=== PATIENT | female | born 1935 | race Caucasian/White ===

== ENCOUNTER 2021-11-10 16:42 | Emergency (ER) | payer MEDICARE, BC, SELFPAY ==
[2021-11-10 16:51] VITALS: BP 171/66; PULSE 82; RESP 18; TEMP 36.6; O2SAT 97; BMI 22.1
[2021-11-10 17:16] LABS: Appearance Urine Clear (Clear); Bilirubin Urine Negative (Negative); Blood Urine 1+ (Negative); Color Urine Yellow (Yellow); Glucose Urine Trace (Negative); Ketones Urine Negative (Negative); Leukocyte Esterase Urine Negative (Negative); Nitrite Urine Positive (Negative); Protein Urine Negative (Negative); Specific Gravity Urine 1.015 (1.000-1.030); Urobilinogen Urine 0.2 (0.2-1.0); pH Urine 7.5 (5.0-8.5)
--- NOTE | 2021-11-10 17:38 | ED_ITS ---
HPI - Female Genitourinary General Chief complaint: Urogenital Problems, Female Stated complaint: URINARY INFECTION,BURNING Time Seen by Provider: 11/10/21 17:06 History of Present Illness HPI Narrative: Patient is a 86-year-old woman with history of frequent UTIs presents with urinary frequency and burning. His no flank pain no abdominal pain no fevers. She has numerous urine cultures in our system all of which are fairly unremarkable. Patient states he has had symptoms for 2 days in that her symptoms are quite severe. She has notice no gross hematuria. Related Data Home Medications Medication Instructions Recorded Confirmed amlodipine 2.5 mg tablet mg 11/10/21 gabapentin 300 mg capsule mg 11/10/21 ketotifen fumarate 0.025 % (0.035 drp OPHTHALMIC (EYE) 11/10/21 %) eye drops (Zaditor) levothyroxine 50 mcg tablet mcg 11/10/21 lisinopril 40 mg tablet mg 11/10/21 lorazepam 1 mg tablet mg 11/10/21 omeprazole 40 mg capsule,delayed mg 11/10/21 release sertraline 25 mg tablet mg 11/10/21 tamsulosin 0.4 mg capsule mg PO 11/10/21 temazepam 15 mg capsule mg 11/10/21 Allergies Allergy/AdvReac Type Severity Reaction Status Date / Time No Known Drug Allergies Allergy Verified 11/10/21 16:59 Review of Systems Status of ROS: Reports: 10 or more systems reviewed and unremarkable except as noted in History and below [facility] Medical History Hernia Hypertension Rectocele UTI (urinary tract infection) Surgical History H/O: hysterectomy Social History Smoking Status: Never smoker How often do you have a drink containing alcohol: never AUDIT-C Alcohol total score: 0 Non-prescribed substance use: denies use Exam Narrative: Exam Narrative: EXAM GENERAL: Patient appears comfortable and well. EYES: No scleral icterus. LYMPH: No supraclavicular or cervical lymphadenopathy. SKIN: Visible skin seen during exam normal or with benign process only. EXT: No dependent lower extremity pedal edema. HEART: Regular rate and rhythm with no murmurs, rubs, or gallops. LUNGS: Clear to auscultation bilaterally with no crackles or wheezes. ABD: Soft, non tender, non distended. PSYCH: Good eye contact, speech is not pressured. Const: Vital Signs, click to edit/add: Vital Signs - 24 hr 11/10/21 16:51 Temperature 97.8 F Pulse Rate [Right Radial] 82 Respiratory Rate 18 Blood Pressure [Ri ght Upper Arm] 171/66 H Pulse Oximetry 97 Course Course Hospital Course: Patient seen examined. Will place her on Bactrim Double Strength for the next 5 days. She will drink plenty of fluids get plenty of rest. She shows no signs of kidney stone or significant pyelonephritis. Vital Signs Vital signs: Initial Vital Signs Temperature 97.8 F 11/10/21 16:51 Temperature Source Temporal Artery Scan 11/10/21 16:51 Pulse Rate 82 11/10/21 16:51 Pulse Rhythm 11/10/21 16:51 Pulse Strength 0+ Absent 11/10/21 16:51 Respiratory Rate 18 11/10/21 16:51 Blood Pressure 171/66 H 11/10/21 16:51 Blood Pressure Mean 101 11/10/21 16:51 Blood Pressure Position Sitting 11/10/21 16:51 Pulse Oximetry 97 11/10/21 16:51 Oxygen Delivery Method 11/10/21 16:51 Vital Signs Temperature 97.8 F 11/10/21 16:51 Pulse Rate 82 11/10/21 16:51 Respiratory Rate 18 11/10/21 16:51 Blood Pressure 171/66 H 11/10/21 16:51 Pulse Oximetry 97 11/10/21 16:51 Temperature 97.8 F 11/10/21 16:51 Pulse Rate 82 11/10/21 16:51 Respiratory Rate 18 11/10/21 16:51 Blood Pressure 171/66 H 11/10/21 16:51 Pulse Oximetry 97 11/10/21 16:51 MDM - Female Genitourinary Lab Data Labs: Lab Results 11/10/21 Range/Units 17:02 Urine Color Yellow (Yellow) Urine Appearance Clear (Clear) Urine pH 7.5 (5.0-8.5) Ur Specific [place] 1.015 (1.000-1.030) Urine Protein Negative (Negative) Urine Glucose (UA) Trace A (Negative) Urine Ketones Negative (Negative) Urine Blood 1+ A (Negative) Urine Nitrite Positive A (Negative) Urine Bilirubin Negative (Negative) Urine Urobilinogen 0.2 (0.2-1.0) Ur Leukocyte Esterase Negative (Negative) Discharge Plan Discharge Clinical Impression: Urinary tract infection Patient Disposition: Home, Self-Care Condition: Stable Instructions: Acute Urinary Retention in Women (ED) Additional Instructions: Bactrim as directed Activity Level: No Restrictions Discharge Diet: Regular Prescriptions: No Action ketotifen fumarate [Zaditor] 0.025 % (0.035 %) drops OPHTHALMIC (EYE) 0RF Label Comments: USE 1 DROP IN AFFECTED EYE/EYES NEEDED TWICE DAILY. amlodipine 2.5 mg tablet 0RF Label Comments: TAKE ONE TABLET BY MOUTH ONCE DAILY omeprazole 40 mg capsule,delayed release(DR/EC) 0RF Label Comments: TAKE 1 CAPSULE BY MOUTH EVERY DAY BEFORE A MEAL. DO NOT CRUSH OR CHEW temazepam 15 mg capsule 0RF Label Comments: TAKE 1 CAPSULE (15 MG) BY MOUTH AT BEDTIME IF NEEDED FOR SLEEP. DO NOT TAKE LORAZEPAM WITHIN 6 HOURS ON FRONT OR BACK END OF THIS MED. tamsulosin 0.4 mg capsule PO 0RF Label Comments: TAKE 1 CAPSULE (0.4 MG) BY MOUTH ONCE DAILY AFTER A MEAL. levothyroxine 50 mcg tablet 0RF Label Comments: TAKE ONE TABLET BY MOUTH BEFORE BREAKFAST gabapentin 300 mg capsule 0RF Label Comments: TAKE ONE CAPSULE BY MOUTH EVERY MORNING THEN 2 CAPSULES AT AT NOON AND 3 CAPSULES AT BEDTIME sertraline 25 mg tablet 0RF Label Comments: TAKE 1 TABLET (25 MG) BY MOUTH EVERY MORNING. lorazepam 1 mg tablet 0RF Label Comments: TAKE 1 TABLET (1 MG) BY MOUTH 2 TIMES DAILY. lisinopril 40 mg tablet 0RF Label Comments: TAKE 1 TABLET (40 MG) BY MOUTH ONCE DAILY. Follow Up/Referrals: Daisy Carpenter DO [Primary Care Provider] - Stand Alone Forms: [employer] Info Instructions
[2021-11-10 17:41] LABS: Bacteria Urine Few; Squamous Epithelial Cell Urine Few (None-Few)
--- NOTE | 2021-11-10 18:31 | PC.NURSE ---
patient was ordered a sulfa antibiotic reviewed the historical information and noticed multiple allergies for patient and entered all in the allergy section. Had Dr. Bernal cancel the septra DS and ordered Keflex for patient to take at home and retrieving out of the [employer] meds machine. Patient is going to take the new prescription and not going to take the old Keflex that is on 11/14/21
== END 2021-11-10 18:05 | disposition home or self-care (01) ==
LOC: ED 17:42
PROVIDERS: Emergency Provider Internal Medicine; PCP Family Medicine
DX: N39.0 Urinary tract infection, site not specified (principal)
CPT/HCPCS: 81003; 81015; 87086; 99283; 99284

== ENCOUNTER 2021-11-13 16:14 | Emergency (ER) | payer MEDICARE, BC, SELFPAY ==
[2021-11-13 17:01] VITALS: BP 171/79; PULSE 74; RESP 18; TEMP 36.2; O2SAT 95
--- NOTE | 2021-11-13 17:40 | ED.NURSE ---
Fluids infused. FSG rechecked and 32. notified and 50% Dextrose 25g administered via left AC IV.
[2021-11-13 18:35] LABS: Appearance Urine Clear (Clear); Bilirubin Urine Negative (Negative); Blood Urine 1+ (Negative); Color Urine Yellow (Yellow); Glucose Urine Trace (Negative); Ketones Urine Negative (Negative); Leukocyte Esterase Urine Negative (Negative); Nitrite Urine Positive (Negative); Protein Urine Negative (Negative); Urobilinogen Urine 0.2 (0.2-1.0)
[2021-11-13 19:00] LABS: Squamous Epithelial Cell Urine Few (None-Few); WBC Urine 0-2 (0-5)
--- NOTE | 2021-11-13 19:24 | CRLHL7_ITS ---
For Patients: As a result of the Cures Act, medical imaging exams and procedure reports are released immediately into your electronic medical record. You may view this report before your referring provider. If you have questions, please contact your health care provider. INDICATION: Constipation TECHNIQUE: Abdomen/Pelvis radiograph 1 view COMPARISON: None FINDINGS: Bowel: The bowel gas pattern is normal without evidence of bowel obstruction. A normal amount of colonic stool is present. Soft tissue: No evidence of pneumoperitoneum present. No suspicious calcifications noted. Bone: Moderate dextroscoliosis is noted with associated facet arthritis and degenerative disc disease. IMPRESSION: 1. Unremarkable appearance of the visualized abdomen. Dictated by Jose De Jesus Wallace MD @ 11/13/2021 7:50:45 PM Dictated by: Jose De Jesus Wallace MD @ 11/13/2021 19:50:59 (Electronically Signed)
--- NOTE | 2021-11-13 20:45 | ED.FEMALEGU ---
HPI - Female Genitourinary General Chief complaint: Urogenital Problems, Female Stated complaint: BURNING & PAINFUL URINATION Time Seen by Provider: 11/13/21 17:21 Source: patient, RN notes reviewed and old records reviewed Mode of arrival: ambulatory History of Present Illness HPI Narrative: 86-year-old woman presenting to the emergency department complaining of vaginal area burning she says all the time though admittedly was more earlier. Seems to be going to more around November 08, 5 days ago. Was worsening but admittedly now okay. She feels also bloated thinking she might be constipated. Three days ago it is small bowel movement last normal bowel movement was maybe 4 days ago. She took some MiraLax and backed off due to looser stools last night took a full cap in feels like this has been minimal effect since. She does have a history of rectocele and has had extensive pelvic area surgery. She was encouraged to continue in her therapy. She says it hurts. She is worried that this is about to fall out again like before with her seem like there is a head of the baby there she says. She needs to keep walking to keep from going crazy but it sounds like she is worried that this is the make the problem worse. She is is is been about a year since she had a urinary tract infection has been applying Vaseline to the labial area it sounds like, nightly. This presumably has been helpful. She has a history of complications for repair this rectocele again very worried that it is falling out. Seen this last week in clinic with this burning and presumably had evidence of urinary tract infection on urinalysis and is taking antibiotics as well as Pyridium. She called in with continued burning is encouraged to continue with the Pyridium. This burning though is not with urination necessarily. Does also have chronic right lower abdominal pain since surgeries, she thinks this is related to mesh. 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 My review of records shows that has been seen for dysuria and cystitis and urinary retention on number of occasions in this emergency department. Related Data Home Medications Medication Instructions Recorded Confirmed amlodipine 2.5 mg tablet mg 11/10/21 gabapentin 300 mg capsule mg 11/10/21 ketotifen fumarate 0.025 % (0.035 drp OPHTHALMIC (EYE) 11/10/21 %) eye drops (Zaditor) levothyroxine 50 mcg tablet mcg 11/10/21 lisinopril 40 mg tablet mg 11/10/21 lorazepam 1 mg tablet mg 11/10/21 omeprazole 40 mg capsule,delayed mg 11/10/21 release sertraline 25 mg tablet mg 11/10/21 tamsulosin 0.4 mg capsule mg PO 11/10/21 temazepam 15 mg capsule mg 11/10/21 Allergies Allergy/AdvReac Type Severity Reaction Status Date / Time amlodipine Allergy Unknown Verified 11/10/21 18:19 atorvastatin Allergy Unknown Verified 11/10/21 18:19 atropine Allergy Unknown Verified 11/10/21 18:19 ciprofloxacin Allergy Unknown Verified 11/10/21 18:19 cyclobenzaprine Allergy Unknown Verified 11/10/21 18:19 doxycycline Allergy Unknown Verified 11/10/21 18:19 hydrochlorothiazide Allergy Unknown Verified 11/10/21 18:19 ibuprofen [From Motrin] Allergy Unknown Verified 11/10/21 18:20 labetalol Allergy Unknown Verified 11/10/21 18:20 phenol Allergy Unknown Verified 11/10/21 18:20 Sulfa (Sulfonamide Allergy Unknown Verified 11/10/21 18:20 Antibiotics) trazodone Allergy Unknown Verified 11/10/21 18:19 glycerine Allergy Unknown Uncoded 11/10/21 18:20 high cosamin Allergy Unknown Uncoded 11/10/21 18:20 Review of Systems Status of ROS: Reports: 6 or more systems reviewed and unremarkable except as noted in History and below [facility] Medical History Hernia Hypertension Rectocele UTI (urinary tract infection) Surgical History H/O: hysterectomy Social History Smoking Status: Never smoker How often do you have a drink containing alcohol: never How often do you have six or more drinks on one occasion: Never AUDIT-C Alcohol total score: 0 Non-prescribed substance use: denies use Exam Narrative: Exam Narrative: pleasant. mildly anxious. very conversant. nad. cn 2 - 12 intact breathing easily. lungs clear. cv rrr moving all extremities without difficulty. no edema. well-perfused. abdomen protuberant. soft. no mass. genearlly full. rather tender in the RLQ which she says is chronically that way since surgeries; blames it on the mesh/surgeries. exam assisted by nursing -- sore to speculum placement. no unusual discharge. small varicosites?/scarring? intravaginally at distal speculum. no mass or rectocele or otherwise appreciated. Const: Vital Signs, click to edit/add: Vital Signs - 24 hr 11/13/21 17:01 Temperature 97.2 F L Pulse Rate [Left P ulse Oximeter] 74 Respiratory Rate 18 Blood Pressure [Le ft Upper Arm] 171/79 H Pulse Oximetry 95 Documenting provider has reviewed patient's vital signs: yes Course Course Hospital Course: ua obtained. nitrite pos as prior. otherwise unremarkable. abd xray reviewed by me with normal colonic stool. scoliosis. osteoarthritic changes. I did do a post-void bladder scan; possibly an hour post-void -- retention somewhere between 40 and 230. Bladder scanner notoriously inaccurate. Vital Signs Vital signs: Initial Vital Signs Temperature 97.2 F L 11/13/21 17:01 Temperature Source Temporal Artery Scan 11/13/21 17:01 Pulse Rate 74 11/13/21 17:01 Respiratory Rate 18 11/13/21 17:01 Blood Pressure 171/79 H 11/13/21 17:01 Blood Pressure Mean 109 11/13/21 17:01 Blood Pressure Position Sitting 11/13/21 17:01 Pulse Oximetry 95 11/13/21 17:01 Oxygen Delivery Method 11/13/21 17:01 Vital Signs Temperature 97.2 F L 11/13/21 17:01 Pulse Rate 74 11/13/21 17:01 Respiratory Rate 18 11/13/21 17:01 Blood Pressure 171/79 H 11/13/21 17:01 Pulse Oximetry 95 11/13/21 17:01 Temperature 97.2 F L 11/13/21 17:01 Pulse Rate 74 11/13/21 17:01 Respiratory Rate 18 11/13/21 17:01 Blood Pressure 171/79 H 11/13/21 17:01 Pulse Oximetry 95 11/13/21 17:01 MDM - Female Genitourinary MDM Narrative Medical decision making narrative: reassured that there is no imminent prolapse. that may participate normally in activities. potentially complicated pelvic pain/burning. i am not convinced it has anything to do with infection. possible aseptic or interstitial cystitis? hx though complicated by surgeries and some degree of urinary retention and constipation. symptoms wax and wane. Medical Records Attestation: I reviewed the patient's medical records. Lab Data Attestation: I reviewed the patient's lab results. Labs: Lab Results 11/13/21 Range/Units 18:23 Urine Color Yellow (Yellow) Urine Appearance Clear (Clear) Urine pH 7.0 (5.0-8.5) Ur Specific Melissa 1.010 (1.000-1.030) Urine Protein Negative (Negative) Urine Glucose (UA) Trace A (Negative) Urine Ketones Negative (Negative) Urine Blood 1+ A (Negative) Urine Nitrite Positive A (Negative) Urine Bilirubin Negative (Negative) Urine Urobilinogen 0.2 (0.2-1.0) Ur Leukocyte Esterase Negative (Negative) Urine RBC 2-5 A (0-2) Urine WBC 0-2 (0-5) Ur Squamous Epith Cells Few (None-Few) Urine Bacteria None (None) Discharge Plan Discharge Clinical Impression: Vaginal pain, Urinary retention, Female pelvic pain Patient Disposition: Home, Self-Care Condition: Stable Additional Instructions: Please schedule follow-up with her primary care provider to discuss all of this further. It may be that treating peripheral/foot neuropathy might also help with what you're complaining of today. I do not see evidence of prolapsing rectocele today. I wonder though if retaining a little bit of urine more than usual might be contributing to your discomfort. Do get on that regimen for bowel regularity. Did not see major evidence though of constipation x-ray today. A urine culture will be pending here. I see no reason you can't continue with your usual level of activity. Prescriptions: No Action ketotifen fumarate [Zaditor] 0.025 % (0.035 %) drops OPHTHALMIC (EYE) 0RF Label Comments: USE 1 DROP IN AFFECTED EYE/EYES NEEDED TWICE DAILY. amlodipine 2.5 mg tablet 0RF Label Comments: TAKE ONE TABLET BY MOUTH ONCE DAILY omeprazole 40 mg capsule,delayed release(DR/EC) 0RF Label Comments: TAKE 1 CAPSULE BY MOUTH EVERY DAY BEFORE A MEAL. DO NOT CRUSH OR CHEW temazepam 15 mg capsule 0RF Label Comments: TAKE 1 CAPSULE (15 MG) BY MOUTH AT BEDTIME IF NEEDED FOR SLEEP. DO NOT TAKE LORAZEPAM WITHIN 6 HOURS ON FRONT OR BACK END OF THIS MED. tamsulosin 0.4 mg capsule PO 0RF Label Comments: TAKE 1 CAPSULE (0.4 MG) BY MOUTH ONCE DAILY AFTER A MEAL. levothyroxine 50 mcg tablet 0RF Label Comments: TAKE ONE TABLET BY MOUTH BEFORE BREAKFAST gabapentin 300 mg capsule 0RF Label Comments: TAKE ONE CAPSULE BY MOUTH EVERY MORNING THEN 2 CAPSULES AT AT NOON AND 3 CAPSULES AT BEDTIME sertraline 25 mg tablet 0RF Label Comments: TAKE 1 TABLET (25 MG) BY MOUTH EVERY MORNING. lorazepam 1 mg tablet 0RF Label Comments: TAKE 1 TABLET (1 MG) BY MOUTH 2 TIMES DAILY. lisinopril 40 mg tablet 0RF Label Comments: TAKE 1 TABLET (40 MG) BY MOUTH ONCE DAILY. Follow Up/Referrals: Daisy Carpenter DO [Primary Care Provider] - Stand Alone Forms: [facility] Info Instructions
== END 2021-11-13 20:00 | disposition home or self-care (01) ==
PROVIDERS: Emergency Provider Family Medicine; PCP Family Medicine
DX: R33.9 Retention of urine, unspecified (principal); R10.2 Pelvic and perineal pain
CPT/HCPCS: 74018; 81003; 81015; 99283; 99284

== ENCOUNTER 2022-03-09 13:17 | Emergency (ER) | payer MEDICARE, BC, SELFPAY ==
[2022-03-09 13:31] VITALS: BP 166/72; PULSE 57; RESP 18; TEMP 36.4; O2SAT 98; BMI 23.0
[2022-03-09 14:41] LABS: Appearance Urine Clear (Clear); Bilirubin Urine Negative (Negative); Blood Urine 1+ (Negative); Color Urine Yellow (Yellow); Glucose Urine Negative (Negative); Ketones Urine Negative (Negative); Leukocyte Esterase Urine 1+ (Negative); Nitrite Urine Negative (Negative); Protein Urine Negative (Negative); Specific Gravity Urine 1.015 (1.000-1.030); Urobilinogen Urine 0.2 (0.2-1.0); pH Urine 7.5 (5.0-8.5)
--- NOTE | 2022-03-09 15:10 | ED.GENADULT ---
HPI - General Adult General Chief complaint: Urogenital Problems, Female Stated complaint: UTI Time Seen by Provider: 03/09/22 15:05 Source: patient Mode of arrival: ambulatory Limitations: no limitations History of Present Illness HPI narrative: 86-year-old female coming in today with concerns about UTI. States she has been having increased urgency and frequency as well as mild dysuria for about a day and a half. Denies any fevers or chills. No nausea or vomiting. No flank pain. No blood in her urine. Related Data Home Medications Medication Instructions Recorded Confirmed amlodipine 2.5 mg tablet mg 11/10/21 gabapentin 300 mg capsule mg 11/10/21 ketotifen fumarate 0.025 % (0.035 drp ophthalmic (eye) 11/10/21 %) eye drops (Zaditor) levothyroxine 50 mcg tablet mcg 11/10/21 lisinopril 40 mg tablet mg 11/10/21 lorazepam 1 mg tablet mg 11/10/21 omeprazole 40 mg capsule,delayed mg 11/10/21 release sertraline 25 mg tablet mg 11/10/21 tamsulosin 0.4 mg capsule mg PO 11/10/21 temazepam 15 mg capsule mg 11/10/21 Allergies Allergy/AdvReac Type Severity Reaction Status Date / Time amlodipine Allergy Unknown Verified 11/10/21 18:19 atorvastatin Allergy Unknown Verified 11/10/21 18:19 atropine Allergy Unknown Verified 11/10/21 18:19 ciprofloxacin Allergy Unknown Verified 11/10/21 18:19 cyclobenzaprine Allergy Unknown Verified 11/10/21 18:19 doxycycline Allergy Unknown Verified 11/10/21 18:19 hydrochlorothiazide Allergy Unknown Verified 11/10/21 18:19 ibuprofen [From Motrin] Allergy Unknown Verified 11/10/21 18:20 labetalol Allergy Unknown Verified 11/10/21 18:20 phenol Allergy Unknown Verified 11/10/21 18:20 Sulfa (Sulfonamide Allergy Unknown Verified 11/10/21 18:20 Antibiotics) trazodone Allergy Unknown Verified 11/10/21 18:19 glycerine Allergy Unknown Uncoded 11/10/21 18:20 high cosamin Allergy Unknown Uncoded 11/10/21 18:20 Review of Systems Status of ROS: Reports: 10 or more systems reviewed and unremarkable except as noted in History and below [facility] Medical History Hernia Hypertension Rectocele UTI (urinary tract infection) Surgical History H/O: hysterectomy Social History Smoking Status: Never smoker How often do you have a drink containing alcohol: never How often do you have six or more drinks on one occasion: Never AUDIT-C Alcohol total score: 0 Non-prescribed substance use: denies use Exam Narrative: Exam Narrative: Well-nourished well-developed patient in no acute distress. Alert and oriented. Answers questions appropriately. Mood and affect are appropriate. Thoughts are goal oriented and rational. No tangential or magical thinking noted. Patient speaks in full sentences without needing to catch their breath. HEENT: Normocephalic atraumatic. Pupils are equally round reactive to light. Extraocular muscles are intact. Conjunctivae are moist without any icterus noted. Abdomen: Soft and nontender nondistended with normal bowel sounds. No CVA tenderness. Patient walks with a walker. Const: Vital Signs, click to edit/add: Vital Signs - 24 hr 03/09/22 13:31 Temperature 97.5 F L Pulse Rate [Pulse Oximeter] 57 L Respiratory Rate 18 Blood Pressure [Ri ght Upper Arm] 166/72 H Pulse Oximetry 98 Oxygen Delivery Me thod Room Air Course Course Hospital Course: Urinalysis grossly positive for signs of infection. Vital Signs Vital signs: Initial Vital Signs Temperature 97.5 F L 03/09/22 13:31 Temperature Source Temporal Artery Scan 03/09/22 13:31 Pulse Rate 57 L 03/09/22 13:31 Pulse Rhythm 03/09/22 13:31 Respiratory Rate 18 03/09/22 13:31 Blood Pressure 166/72 H 03/09/22 13:31 Blood Pressure Mean 103 03/09/22 13:31 Blood Pressure Position Sitting 03/09/22 13:31 Pulse Oximetry 98 03/09/22 13:31 Oxygen Delivery Method 03/09/22 13:31 Vital Signs Temperature 97.5 F L 03/09/22 13:31 Pulse Rate 57 L 03/09/22 13:31 Respiratory Rate 18 03/09/22 13:31 Blood Pressure 166/72 H 03/09/22 13:31 Pulse Oximetry 98 03/09/22 13:31 Oxygen Delivery Method 03/09/22 13:31 Temperature 97.5 F L 03/09/22 13:31 Pulse Rate 57 L 03/09/22 13:31 Respiratory Rate 18 03/09/22 13:31 Blood Pressure 166/72 H 03/09/22 13:31 Pulse Oximetry 98 03/09/22 13:31 Oxygen Delivery Method 03/09/22 13:31 Medical Decision Making MDM Narrative Medical decision making narrative: 86-year-old female with a UTI. Will treat with Keflex for 5 days. Recommend follow-up with primary care provider in a week or so. Return to the ED if symptoms are getting worse instead of better. Lab Data Lab results reviewed: Yes I reviewed the patient's lab results Labs: Lab Results 03/09/22 Range/Units 14:15 Urine Color Yellow (Yellow) Urine Appearance Clear (Clear) Urine pH 7.5 (5.0-8.5) Ur Specific [place] 1.015 (1.000-1.030) Urine Protein Negative (Negative) Urine Glucose (UA) Negative (Negative) Urine Ketones Negative (Negative) Urine Blood 1+ A (Negative) Urine Nitrite Negative (Negative) Urine Bilirubin Negative (Negative) Urine Urobilinogen 0.2 (0.2-1.0) Ur Leukocyte Esterase 1+ A (Negative) Discharge Plan Discharge Clinical Impression: Urinary tract infection Patient Disposition: Home, Self-Care Condition: Stable Additional Instructions: Take all antibiotics as prescribed. You should take them 3 times a day for 5 days. Return to the ER if her symptoms are getting worse instead of better. Follow-up with your primary care provider in a week. Prescription sent to [facility] Prescriptions: No Action ketotifen fumarate [Zaditor] 0.025 % (0.035 %) drops OPHTHALMIC (EYE) Label Comments: USE 1 DROP IN AFFECTED EYE/EYES NEEDED TWICE DAILY. amlodipine 2.5 mg tablet Label Comments: TAKE ONE TABLET BY MOUTH ONCE DAILY omeprazole 40 mg capsule,delayed release(DR/EC) Label Comments: TAKE 1 CAPSULE BY MOUTH EVERY DAY BEFORE A MEAL. DO NOT CRUSH OR CHEW temazepam 15 mg capsule Label Comments: TAKE 1 CAPSULE (15 MG) BY MOUTH AT BEDTIME IF NEEDED FOR SLEEP. DO NOT TAKE LORAZEPAM WITHIN 6 HOURS ON FRONT OR BACK END OF THIS MED. tamsulosin 0.4 mg capsule PO Label Comments: TAKE 1 CAPSULE (0.4 MG) BY MOUTH ONCE DAILY AFTER A MEAL. levothyroxine 50 mcg tablet Label Comments: TAKE ONE TABLET BY MOUTH BEFORE BREAKFAST gabapentin 300 mg capsule Label Comments: TAKE ONE CAPSULE BY MOUTH EVERY MORNING THEN 2 CAPSULES AT AT NOON AND 3 CAPSULES AT BEDTIME sertraline 25 mg tablet Label Comments: TAKE 1 TABLET (25 MG) BY MOUTH EVERY MORNING. lorazepam 1 mg tablet Label Comments: TAKE 1 TABLET (1 MG) BY MOUTH 2 TIMES DAILY. lisinopril 40 mg tablet Label Comments: TAKE 1 TABLET (40 MG) BY MOUTH ONCE DAILY. Follow Up/Referrals: Daisy Carpenter DO [Primary Care Provider] - Stand Alone Forms: [employer] Info Instructions
[2022-03-09 15:25] LABS: RBC Urine 0-2 (0-2); Squamous Epithelial Cell Urine Few (None-Few); WBC Urine 0-2 (0-5)
== END 2022-03-09 15:35 | disposition home or self-care (01) ==
PROVIDERS: Emergency Provider Family Medicine; PCP Family Medicine
DX: N39.0 Urinary tract infection, site not specified (principal); I10 Essential (primary) hypertension; Z79.899 Other long term (current) drug therapy; Z87.440 Personal history of urinary (tract) infections
CPT/HCPCS: 81001; 87086; 99283

== ENCOUNTER 2022-03-23 03:11 | Outpatient (CLI) | payer MEDICARE, BC, SELFPAY ==
--- OUTSIDE RECORDS SUMMARY | 2022-04-13 07:09 | XMS_ITS ---
:1935 Author Care Team Providers Name Role Phone Laureano Miner Primary Care Provider Unavailable Allergies Code Code System Name Reaction Severity Status Onset Sulfamethoxazole-trimetho Hives ? Acti ve 10/23/2015 prim 7454 RxNorm Nitrofurantoin Diarrhea ? Active 07/15 2231 RxNorm Cephalexin Itching ? Active ? [id number] RxNorm Cipro ? ? Active ? 52381 RxNorm Cyclobenzaprine Dizziness ? Active ? Itching ? Active ? 3640 RxNorm Doxycycline ? ? Active ? 5487 RxNorm Hydrochlorothiazide ? ? Active ? 905699 RxNorm Hyoscyamine ? ? Active ? 6185 RxNorm Labetalol ? ? Active ? 017678 RxNorm Lipitor ? ? Active ? 77618 RxNorm Mirtazapine ? ? Active ? 84234 RxNorm Tramadol ? ? Active ? 84973 RxNorm Trazodone ? ? Active ? Medications [...]
--- OUTSIDE RECORDS SUMMARY | 2022-04-13 07:09 | XMS_ITS | Clinical Summary ---
:1935 Author Organization [facility] Address [address] [place] [address] Care Team Providers Name Role Phone Elsewhere, Pcp Primary Care Provider Unavailable Source Comments Patient records contain information from all sites at [facility]. For routine questions regarding patient records, call [phone] during business hours, M-F 8:00 AM - 5:00 PM Central Time. Record requests for emergency care only can be directed to [phone] at any time.[facility] Allergies Active Allergy Reactions Severity Noted Date [...] 11/20/2021 11/20/2020, 09/20/2018, 03/02/2018, Additional history exists DTaP,Tdap,and Td Vaccines (4 - Td 05/04/2022 05/04/2012, , or Tdap) 10/26/2005, Additional history exists Pneumococcal vaccine (65+ years) Completed 05/22/2015, 05/2007, 10/26/2005 Zoster Vaccines Completed 02/28/2019, 12/27/2018, 02/28/2009 Influenza Vaccine Completed 02/25/2022, 02/23/2021, 02/14/2020, Additional history exists COVID-19 Vaccine Completed 03/17/2022, 10/08/2021, 03/30/2021, Additional history exists Insurance Payer Benefit Plan Subscriber ID Effective Phone Address Typ e / Group Dates MEDICARE MEDICARE A [id number] 2002-Pres [address] [place] [address] BLUE CROSS BCBS [place] [id number] 2016-Pres [phone] [address] Cost Share BLUE SHIELD BLUE COST ent [phone] [place] [address] Advance Directives For more information, please contact: [phone] Documents on File Type Date Recorded Patient Visual Basic Programmer Explanati on Advance Directives 03/25/2016 12:00 AM Legacy do cument. See document viewer. Advance Directives 11/24/2008 12:00 AM Legacy doc ument. See document viewer. Advance Directives 11/24/2008 12:00 AM Legacy doc ument. See document viewer. Care Teams Communications Equipment Supervisor Relationship Specialty Start Date End Date Elsewhere, Pcp PCP - General Family Medicine 11/20/20
--- OUTSIDE RECORDS SUMMARY | 2022-04-13 07:10 | XMS_ITS | Encounter Summary ---
:1935 Author Organization [facility] Address [address] [place] [address] Care Team Providers Name Role Phone Elsewhere, [...] if needed. CDM Reports - EYEGEN Id: [id number] Status: Fnl documented in this encounter Plan of Treatment Not on filedocumented as of this encounter Visit Diagnoses Not on filedocumented in this encounter Care Teams State Comptroller Relationship Specialty Start Date End Date Elsewhere, Pcp PCP - General Family Medicine 11/20/20 documented as of this encounter
--- OUTSIDE RECORDS SUMMARY | 2022-04-13 07:10 | XMS_ITS | Clinical Summary ---
:1935 Author Organization [facility] [place] [address] Care Team Providers Name Role Phone Daisy [...] Medications Medication Sig Dispensed Refills Start End Status Date Date aspirin 81 mg tablet Take 1 tablet 0 10/08/19 Active by mouth once 11 daily with a meal. multivitamin (MVI) Take 1 tablet 0 03/06/20 Active tablet by mouth once 12 daily. magnesium citrate Take 1 Tab by 0 11/29/19 Active 100 mg tab mouth at 18 bedtime. polyethylene glycoL 17g daily. 0 05/17/19 Active (MIRALAX) 17 19 gram/dose powder fexofenadine 0 01/08/20 Active (ROSALVA ALLERGY) 19 180 mg tablet vit C/E/zinc 0 12/22/19 Active ox/lory/lut/zeax 19 (ICAPS AREDS2 ORAL) Walker - 4 For home use. 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 cranberry fruit Chew 1 Capsule 0 12/18/19 Active concentrate (Azo by mouth once 21 Cranberry) 250 mg daily. chewIndications: Recurrent UTI tamsulosin (FLOMAX) Take 1 Capsule 90 Capsule 3 04/09/20 Active 0.4 mg (0.4 mg) by 21 capsuleIndications: mouth once Incomplete bladder daily after a emptying meal. amLODIPine (NORVASC) Take 1 Tablet 90 tablet. 3 04/15/20 Active 2.5 mg (2.5 mg) by 21 tabletIndications: mouth once Essential daily. hypertension levothyroxine Take 1 Tablet 90 tablet. 3 04/15/20 A ctive (SYNTHROID) 50 mcg (50 mcg) by 21 tabletIndications: mouth before Other specified breakfast. hypothyroidism omeprazole TAKE 1 CAPSULE 90 capsule. 4 04/15/20 Ac tive (PRILOSEC) 40 mg BY MOUTH EVERY 21 Delayed-Release DAY BEFORE A capsuleIndications: MEAL. DO NOT Gastroesophageal CRUSH OR CHEW reflux disease without esophagitis ketotifen (ZADITOR) Use 1 drop in 10 mL 3 04/30/20 Active 0.025 % (0.035 %) affected 21 ophthalmic eye/eyes as solutionIndications: needed twice Allergic daily. conjunctivitis and rhinitis, right LORazepam (ATIVAN) 1 TAKE 1 TABLET 180 Tablet 1 10/14/19 Active mg (1 MG) BY 22 tabletIndications: MOUTH 2 TIMES Insomnia, DAILY. unspecified type gabapentin TAKE ONE 360 Capsule 0 03/17/20 Active (NEURONTIN) 300 mg CAPSULE BY 22 capsuleIndications: MOUTH EVERY Neurodermatitis MORNING THEN 2 CAPSULES AT AT NOON AND 3 CAPSULES AT BEDTIME lisinopriL Take 1 Tablet 90 Tablet 0 03/23/20 Activ e (PRINIVIL; ZESTRIL) (40 mg) by 22 40 mg mouth once tabletIndications: daily. Essential hypertension gabapentin TAKE 1 CAPSULE 560 capsule. 1 04/15/20 D iscontinued (NEURONTIN) 300 mg BY MOUTH EVERY 022 capsuleIndications: MORNING, THEN Neurodermatitis 2 CAPSULE AT NOON, AND 3 CAPSULES AT BEDTIME lisinopriL Take 1 Tablet 90 tablet. 1 04/15/20 Disc ontinued (PRINIVIL; ZESTRIL) (40 mg) by 022 40 mg mouth once tabletIndications: daily. Essential hypertension lisinopriL TAKE 1 TABLET 30 Tablet 0 03/17/20 Disco ntinued (PRINIVIL; ZESTRIL) (40 MG) BY 022 (Reorder 40 mg MOUTH ONCE (E-cancel not tabletIndications: DAILY. s ent)) Essential hypertension Active Problems Problem Noted Date [...] 02/17/2011 05/19/2016 Routine general medical examination at [facility] 008 05/19/2016 facility Overview: Lipids - 10/28/06 - cholesterol 134, LDL - 59, TG - 85 Dexa- none found mammo-10/17/07 Colon - 12/04/04 - h/o colon polyp, mild diverticulosis, next due 2009 Pap/pelvic -03/17/01 - nl Thyroid- 10/28/06 - 0.62 Hep B-none found Pneumovax - 10/26/05 Tetanus-10/26/05 Diabetic-no Encounters Date Type Specialty Care Team Description 03/23/2022 Orders Only Scanner <No scans attac hed> 03/15/2022 Refill DetertDaisy, Refil l Request (Lisinopril, Gabapentin) from Last [...] 36.7 ??C (98 ??F) 06/01/2021 10:48 AM TOOL MAKER BENCH Respiratory Rate 20 05/28/2020 10:27 AM TOOL MAKER BENCH Oxygen Saturation 99% 11/25/2021 3:24 PM CDT Inhaled Oxygen Concentration - - Weight 62.7 kg (138 lb 3.2 oz) 11/25/2021 3:24 PM CDT Height 163.8 cm (5' 4.5) 04/09/2021 8:34 AM TOOL MAKER BENCH Body Mass Index 23.36 04/09/2021 8:34 AM TOOL MAKER BENCH Plan of Treatment Upcoming Encounters Date Type Specialty Care Team Description 04/16/2022 Office Visit Daisy Carpenter ea, DO [address] [place], [place] [address] (Wo rk) Health Maintenance Due Date Last Done Comments [...] for age Completed 02/28/2019, , 50+ 02/28/2009 Procedures Procedure Name Priority Date/Time Associated Diagnosis Comme nts SCAN-CT INTERPRETATION 03/23/2022 12:00 AM TOOL MAKER BENCH from Last 3 Months Results SCAN-CT INTERPRETATION (03/23/2022 12:00 AM TOOL MAKER BENCH) Narrative This result has an attachment that is no t available. Scanner OTHER from Last 3 Months Insurance Payer Benefit Plan / Subscriber ID Effective Dates Phone Addre ss Type Group BLUE CROSS [place] BLUE CROSS [id number] 2016-Present [address] [place] [place], [place] ONLY [phone] Advance Directives Documents on File Type Date Recorded Patient Single Stroke Preformer Explanati on POLST 05/08/2018 1:18 PM [facility] , 04/28/18 Healthcare Directive 09/03/2009 HEALTH CARE DIRECTIVE, [facility], 08/14/09 Care Teams User Experience Designer Relationship Specialty Start Date End Date Daisy Carpenter DO PCP - General Family Practice 11/28/17 [address] [place], [place] [id number]
--- OUTSIDE RECORDS SUMMARY | 2022-04-13 07:10 | XMS_ITS | Encounter Summary ---
:1935 Author Organization [facility] Address [address] [place] [address] Care Team Providers Name Role Phone Unavailable [...]
--- OUTSIDE RECORDS SUMMARY | 2022-04-13 07:10 | XMS_ITS | Encounter Summary ---
:1935 Author Organization [facility] Address [address] [place] [address] Care Team Providers Name Role Phone Unavailable [...] Comments Blood Pressure 126/62 06/19/2013 12:16 PM SAMPLE CHECKER Pulse - - Temperature - - Respiratory Rate 16 06/19/2013 12:16 PM SAMPLE CHECKER Oxygen Saturation - - Inhaled Oxygen Concentration [...]
--- OUTSIDE RECORDS SUMMARY | 2022-04-13 07:10 | XMS_ITS | Encounter Summary ---
:1935 Author Organization [facility] Address [address] [place] [address] Care Team Providers Name Role Phone Unavailable [...]
--- OUTSIDE RECORDS SUMMARY | 2022-04-13 07:10 | XMS_ITS | Encounter Summary ---
:1935 Author Organization [facility] Address [address] [place] [address] Care Team Providers Name Role Phone Elsewhere, Pcp Primary Care Provider Unavailable Reason for Visit Reason Comments Pelvic Pain Encounter Details Date Type Department Care Team Description 11/20/2020 Emergency [facility] Yousuf Iraheta M.D. [address] [place] [phone] Hyponatremia (Primary Dx); Emergency Department Juan Silva M.D., M.B.A. [address] [place] [phone] Pain Pelvic Female; [address] [facility] [place] [address] Social History Tobacco Use Types [...] cannot be sent through Care Everywhere. Hyponatremia Nisa-ly-Mztr (German)Neuropathic Pain (German)Constipation Adult Jsia-es-Jgeb (German)documented in this encounter Medications at Time of Discharge Medication Sig Dispensed Refills Start Date End Date aspirin (Aspirin Low Dose) 81 Take 1 tablet by 0 02/12/[address] tablet mouth at bedtime. carboxymethylcellulose Administer 2 0 02/12/2015 (Refresh Plus) 0.5 % drops into both ophthalmic solution eyes 2 (two) times a day. gabapentin (NEURONTIN) 300 mg Take 300 mg by 0 capsule mouth 3 (three) times a day. levothyroxine (Synthroid) 75 Take 75 mcg by 0 mcg tablet mouth every morning before breakfast. lisinopriL (PRINIVIL,ZESTRIL) Take 1 tablet by 0 06/18/2013 40 mg tablet mouth at bedtime. LORazepam (ATIVAN) 1 mg tablet Take 1 mg by 0 mouth 2 (two) times a day. LORazepam (ATIVAN) 1 mg tablet Take 1 [...] daily after dinner. Daily after a meal documented as of this encounter ED Notes Cedric Iarheta M.D. - 11/20/2020 7:11 PM CDT I have personally seen and examined this patient. I have fully participated in the care of this patient. I have reviewed all clinical information including history, physical exam, orders, and plan. I agree with the note of the MUSIC ORCHESTRATOR/PA. Patient has history of pelvic mass for [...] Leg Bilateral Cristine Hill MPAS, P.A.-C. 11/20/20 [id number] Brianna Bashir R.N. - 11/20/2020 1:39 PM [...] M.S. LAB URINE ORDERABLES Performing Organization Address City/[facility]/ZIP [facility] Phon e Number [facility] - [address] [place] [address] [place] [address] pH, Urine (11/20/2020 8:05 PM CDT) athologist Signature pH, U 6.6 4.5 - 8.0 11/20/2020 8:59 DTL PM CDT Specimen Anatomical Collection Method Collection Time Receive d Time (Source) Location / / Volume Laterality Urine 11/20/2020 8:05 PM 1 8:06 CDT PM CDT Cristine Hill P.A.-C., M.S. LAB URINE ORDERABLES Performing Organization Address City/State/[facility] Phon e Number [facility] - [address] [place], [place] [address] [place] [address] [facility] [address] [facility] Microscopic Automated (11/20/2020 8:05 PM CDT) athologist Signature Microscopy Normal 11/20/2020 8:27 DTL PM CDT Specimen Anatomical Collection Method Collection Time Receive d Time (Source) Location / / Volume Laterality Urine 11/20/2020 8:05 PM 8:06 CDT PM CDT Cristine Hill P.A.-C., M.S. LAB URINE ORDERABLES Performing Organization Address City/[facility] Code Phon e Number [facility] - [address] [place], [place] [address] [place] [address] (ABNORMAL) Dipstick, Urine (11/20/2020 8:05 PM CDT) [employer] Method Time Signature Hemoglobin, Small (A) Negative [...] M.S. LAB URINE ORDERABLES Performing Organization Address City/[facility] Code Phon e Number [facility] - [address] [place], [place] [address] [place], [place] [id number] [place] [address] Urinalysis with Microscopic: Urine, Midstream (11/20/2020 8:05 PM CDT) [employer] Method Time Signature Source Urine, Urine, 11/20/2020 [...] Organization Address City/State/ZIP Code Phon e Number [facility] - [address] [place], [place] [address] [facility] [place] [address] Laboratories-[facility] [address] DX Lumbar [...] Dipstick, POCT, Urine (11/20/2020 6:46 PM CDT) [facility] Method Time Signature Glucose, Negative Negative 11/20/2020 [facility] POCT, U mg/dL 6:48 PM CDT Ketone, POCT, Negative Negative 11/20/2020 [facility] U mg/dL 6:48 PM CDT Specific 1.010 1.005 - 11/20/2020 [facility] [place], 1.030 6:48 PM CDT POCT, U Blood, [...] City/State/ZIP Code Phon e Number POC RST [facility] [address] [place] [address] OUTPATIENT [place] [address] [facility]ly [facility] [address] [facility] Bacterial Culture, Aerobic + Susc, Urine (11/20/2020 [...] Organization Address City/State/ZIP Code Phon e Number [facility] - [address] [place], [place] [address] [facility] [place] [address] [facility] [address] [facility] Magnesium (11/20/2020 5:58 PM CDT) P athologist Signature Magnesium, S 2.0 1.7 - 2.3 11/20/2020 DTL mg/dL 6:32 PM CDT Specimen Anatomical Collection Method Collection Time Receive d Time (Source) Location / / Volume Laterality Blood (Blood, 11/20/2020 5:58 PM 11/21/19 6:21 Venous) CDT PM CDT Cristine Hill P.A.-C., M.S. LAB BLOOD ADD-ON Performing Organization Address City/State/ZIP Code Phon e Number [facility] - [address] [place], [place] [address] [facility] [place] [address] Laboratories-[facility] [address] (ABNORMAL) Basic [...] CDT eGFR-Black/Afri 90 >=60 11/20/2020 [facility] can [place] mL/min/BSA 6:18 PM CDT Comment: ----ADDITIONAL INFORMATION---- [...] Organization Address City/State/ZIP Code Phon e Number [facility] - [address] [place], [place] [address] [facility] [place] [address] [facility] [address] [facility] (ABNORMAL) CBC with Differential, Blood (11/20/2020 5:58 PM CDT) [facility] Method Time Signature Hemoglobin 12.6 11.6 - [...] Organization Address City/State/ZIP Code Phon e Number [facility] - [address] [place], [place] [address] [place] [address] Laboratories-[facility] [address] documented in this encounter Visit Diagnoses Diagnosis Hyponatremia - Primary Pain Pelvic Female Pain Leg Bilateral documented in this encounter Administered Medications Inactive Administered Medications - up to 3 most recent administrations Medication Order MAR Action Action Date Dose Rate Site acetaminophen tablet 1,000 mg Given 11/20/2020 8:44 PM CDT 1,000 mg (TYLENOL) 1,000 mg, oral, Once, On Yeiim 11/20/20 at 203, For 1 dose iohexoL [...] Guidelines documented in this encounter Care Teams Tan Room Supervisor Relationship Specialty Start Date End Date Elsewhere, Pcp PCP - General Family Medicine 11/20/20 documented as of this encounter
--- OUTSIDE RECORDS SUMMARY | 2022-04-13 07:10 | XMS_ITS | Encounter Summary ---
:1935 Author Organization [facility] Address [address] [place] [address] Care Team Providers Name Role Phone Elsewhere, [...] and LHT CDM Reports - EYEGEN Id: [id number] Status: Fnl documented in this encounter Plan of Treatment Not on filedocumented as of this encounter Visit Diagnoses Not on filedocumented in this encounter Care Teams Airport Location Manager Relationship Specialty Start Date End Date Elsewhere, Pcp PCP - General Family Medicine 11/20/20 documented as of this encounter
--- OUTSIDE RECORDS SUMMARY | 2022-04-13 07:10 | XMS_ITS | Encounter Summary ---
:1935 Author Organization [facility] Address [address] [place] [address] Care Team Providers Name Role Phone Elsewhere, [...] glasses; at distance. Denies diplopia with newcorrection. [facility] - has to close Left eye for [...] ET HT CDM Reports - EYEGEN Id: [id number] Status: Fnl documented in this encounter Plan of Treatment Not on filedocumented as of this encounter Visit Diagnoses Not on filedocumented in this encounter Care Teams Jboss Developer Relationship Specialty Start Date End Date Elsewhere, Pcp PCP - General Family Medicine 11/20/20 documented as of this encounter
--- OUTSIDE RECORDS SUMMARY | 2022-04-13 07:10 | XMS_ITS | Encounter Summary ---
:1935 Author Organization [facility] Address [address] [place] [address] Care Team Providers Name Role Phone Elsewhere, [...] and is curious what he meant. [facility] - Hx DI type ET and [...] dry armd CDM Reports - EYEGEN Id: [id number] Status: Fnl documented in this encounter Plan of Treatment Not on filedocumented as of this encounter Visit Diagnoses Not on filedocumented in this encounter Care Teams Associate Data Scientist Relationship Specialty Start Date End Date Elsewhere, Pcp PCP - General Family Medicine 11/20/20 documented as of this encounter
--- OUTSIDE RECORDS SUMMARY | 2022-04-13 07:10 | XMS_ITS | Encounter Summary ---
:1935 Author Organization [facility] Address [address] [place] [address] Care Team Providers Name Role Phone Elsewhere, [...] dry eyes CDM Reports - EYEGEN Id: [id number] Status: Fnl documented in this encounter Plan of Treatment Not on filedocumented as of this encounter Visit Diagnoses Not on filedocumented in this encounter Care Teams Newspaper Photographer Relationship Specialty Start Date End Date Elsewhere, Pcp PCP - General Family Medicine 11/20/20 documented as of this encounter
--- OUTSIDE RECORDS SUMMARY | 2022-04-13 07:10 | XMS_ITS | Encounter Summary ---
:1935 Author Organization [facility] Address [address] [place] [address] Care Team Providers Name Role Phone Unavailable Primary Care Provider Unavailable Encounter Details Date Type Department Care Team Description 11/21/2008 Hospital Encounter HX RST C&RS FLOOR Nikky Nuno, PRACTICE FOLDING MACHINE SETTER, C.N.P., M.S.N., R.N. Social History Tobacco Use [...]
--- OUTSIDE RECORDS SUMMARY | 2022-04-13 07:10 | XMS_ITS | Encounter Summary ---
:1935 Author Organization [facility] Address [address] [place] [address] Care Team Providers Name Role Phone Unavailable [...]
--- OUTSIDE RECORDS SUMMARY | 2022-04-13 07:10 | XMS_ITS | Encounter Summary ---
:1935 Author Organization [facility] Address [address] [place] [address] Care Team Providers Name Role Phone Unavailable Primary Care Provider Unavailable Reason for Visit Reason Onset Date Comments Communication 10/16/2018 Encounter Details Date Type Department Care Team Description 10/16/2018 Clinical Communication Department of Sarai Sauer, Communication Obstetrics and P.A.-C. Gynecology in [address] [place] [address] [place] [phone] [place], [place] [phone] (Work) [phone] Social History Tobacco Use Types Packs/Day Years [...]
--- OUTSIDE RECORDS SUMMARY | 2022-04-13 07:10 | XMS_ITS | Encounter Summary ---
:1935 Author Organization [facility] Address [address] [place] [address] Care Team Providers Name Role Phone Unavailable [...]
--- OUTSIDE RECORDS SUMMARY | 2022-04-13 07:10 | XMS_ITS | Encounter Summary ---
:1935 Author Organization [facility] Address [address] [place] [address] Care Team Providers Name Role Phone Elsewhere, [...] Document Viewer. CDM Reports - EYEPO Id: [id number] Status: Fnl documented in this encounter Plan of Treatment Not on filedocumented as of this encounter Visit Diagnoses Not on filedocumented in this encounter Care Teams Business Support Coordinator Relationship Specialty Start Date End Date Elsewhere, Pcp PCP - General Family Medicine 11/20/20 documented as of this encounter
--- OUTSIDE RECORDS SUMMARY | 2022-04-13 07:10 | XMS_ITS | Encounter Summary ---
:1935 Author Organization [facility] Address [address] [place] [address] Care Team Providers Name Role Phone Unavailable Primary Care Provider Unavailable Reason for Visit Reason Onset Date Comments Communication 12/13/2017 Encounter Details Date Type Department Care Team Description 12/13/2017 Clinical Communication Department of Sarai Sauer, Communication Obstetrics and P.A.-C. Gynecology in [address] [place] [address] [place] [phone] [place], [place] [phone] (Work) [phone] Social History Tobacco Use Types Packs/Day Years [...] and she does not have transportation to [place] to obtain a surgical opinion. At this [...]
--- OUTSIDE RECORDS SUMMARY | 2022-04-13 07:10 | XMS_ITS | Encounter Summary ---
:1935 Author Organization [facility] Address [address] [place] [address] Care Team Providers Name Role Phone Elsewhere, [...] #4 anxiety CDM Reports - EYEGEN Id: [id number] Status: Fnl documented in this encounter Plan of Treatment Not on filedocumented as of this encounter Visit Diagnoses Not on filedocumented in this encounter Care Teams Hotel Service Supervisor Relationship Specialty Start Date End Date Elsewhere, Pcp PCP - General Family Medicine 11/20/20 documented as of this encounter
--- OUTSIDE RECORDS SUMMARY | 2022-04-13 07:10 | XMS_ITS | Encounter Summary ---
:1935 Author Organization [facility] Address [address] [place] [address] Care Team Providers Name Role Phone Elsewhere, Pcp Primary Care Provider Unavailable Encounter Details Date Type Department Care Team Description 06/27/2013 Historical Ophthalmology RST OPH Wayne Mina M.D. Social History Tobacco Use Types Packs/Day Years Used Date Smoking Tobacco: Never Assessed Sex Assigned at Date Recorded Not on file documented as of this encounter Progress Notes Wayne Mina M.D. - 06/27/2013 1:21 PM CST Eye General CHIEF COMPLAINT s/p Bilateral medial rectus recession of 4 mm with the left on adjustable suture. Recession of the left superior rectus 2 mm on adjustable suture. HISTORY OF PRESENT ILLNESS 06/19/13 Bilateral medial rectus recession of 4 mm with the left on adjustable suture. Recession of the left superior rectus 2 mm on adjustable suture. Pain; left eye; x 1 week ; on and off; symptoms reported at level of 5/10 at its worst. Itching; left eye ; x 1 week ; constantly. Dark spot; on left eye; nasally; first noticed today when looking in mirror. IMPRESSION / REPORT / PLAN #1 pod#8 BMR rec and LSR rec for ET HT excellent alignment PF bid 1w and celluvisc qh wa 1 w then wean epith defect resolved see 5 weeks - refract use +2.50 ot 2.75 or 3.00 readers DIAGNOSIS #1 pod#8 BMR rec and LSR rec for ET HT CDM Reports - EYEGEN Id: [id number] Status: Fnl documented in this encounter Plan of Treatment Not on filedocumented as of this encounter Visit Diagnoses Not on filedocumented in this encounter Care Teams Chemical Inspector Relationship Specialty Start Date End Date Elsewhere, Pcp PCP - General Family Medicine 11/20/20 documented as of this encounter
--- OUTSIDE RECORDS SUMMARY | 2022-04-13 07:10 | XMS_ITS | Encounter Summary ---
:1935 Author Organization [facility] Address [address] [place] [address] Care Team Providers Name Role Phone Unavailable [...]
--- OUTSIDE RECORDS SUMMARY | 2022-04-13 07:10 | XMS_ITS | Encounter Summary ---
:1935 Author Organization [facility] Address [address] [place] [address] Care Team Providers Name Role Phone Elsewhere, [...] dry armd CDM Reports - EYEGEN Id: [id number] Status: Fnl documented in this encounter Plan of Treatment Not on filedocumented as of this encounter Visit Diagnoses Not on filedocumented in this encounter Care Teams Business Executive Relationship Specialty Start Date End Date Elsewhere, Pcp PCP - General Family Medicine 11/20/20 documented as of this encounter
--- OUTSIDE RECORDS SUMMARY | 2022-04-13 07:10 | XMS_ITS | Encounter Summary ---
:1935 Author Organization [facility] Address [address] [place] [address] Care Team Providers Name Role Phone Elsewhere, [...] ears - MRI ordered by MD in [place] - MRI's negative per MD On thyroid - but never hyperthyroid and radioactive iodine IMPRESSION / REPORT / PLAN #1 esotropia acquired divergence insufficiency type MRI done in [place] and reported normal #2 left hypertropia most [...] left hypertropia CDM Reports - EYEGEN Id: [id number] Status: Fnl documented in this encounter Plan of Treatment Not on filedocumented as of this encounter Visit Diagnoses Not on filedocumented in this encounter Care Teams Dock Clerk Relationship Specialty Start Date End Date Elsewhere, Pcp PCP - General Family Medicine 11/20/20 documented as of this encounter
--- OUTSIDE RECORDS SUMMARY | 2022-04-13 07:10 | XMS_ITS | Encounter Summary ---
:1935 Author Organization [facility] Address [address] [place] [address] Care Team Providers Name Role Phone Unavailable Primary Care Provider Unavailable Encounter Details Date Type Department Care Team Description 06/14/2019 Clinical Communication Department of Wayne Mina Ophthalmology conrado Robertson M.D. [place], [place] [address] [place] [address] Social History Tobacco Use Types Packs/Day Years Used Date Smoking Tobacco: Unknown Sex Assigned at Date Recorded Not on file documented as of this encounter Miscellaneous Notes Telephone Encounter - Wayne Mina M.D. - 06/19/2019 11:09 AM FLATTENING PRESS OPERATOR Sorry, We cant send a prescription that is almost 2 years out of date. [facility] TENING PRESS OPERATOR Telephone Encounter - Amanda Thao R.T.(R)() - 06/14/2019 3:21 [address]. Mina, Patient called wanting her eyeglass prescription from 08/25/2017 [address] [facility] in [place]. I do not see an rx in [...] be mailed to: Dr. Lul Combs [address] [facility] [address] [place] [address] TENING PRESS OPERATOR documented in this encounter Plan of Treatment Not on filedocumented as of this encounter Visit Diagnoses Not on filedocumented in this encounter
--- OUTSIDE RECORDS SUMMARY | 2022-04-13 07:10 | XMS_ITS | Encounter Summary ---
:1935 Author Organization [facility] Address [address] [place] [address] Care Team Providers Name Role Phone Elsewhere, [...] 6 months- only at dist. last year. [facility] -tried Dr Combs's new Rx 8BO 8BO [...] dry eyes CDM Reports - EYEGEN Id: [id number] Status: Fnl documented in this encounter Plan of Treatment Not on filedocumented as of this encounter Visit Diagnoses Not on filedocumented in this encounter Care Teams Surgical Instrument Maker Relationship Specialty Start Date End Date Elsewhere, Pcp PCP - General Family Medicine 11/20/20 documented as of this encounter
--- OUTSIDE RECORDS SUMMARY | 2022-04-13 07:10 | XMS_ITS | Encounter Summary ---
:1935 Author Organization [facility] Address [address] [place] [address] Care Team Providers Name Role Phone Unavailable [...] 3:16 PM Results for this IV CONTRAST CITY CONTROLLER procedure are i n the results section. INTERPRETATION OF Routine 05/03/2011 10:56 Result s for this OUTSIDE CT ABDOMEN AND PM CITY CONTROLLER proce dure are in OR PELVIS the results section. documented in this encounter Results CT Abdomen Pelvis with IV Contrast (05/04/2011 3:16 PM CITY CONTROLLER) Anatomical Region Laterality Modality Abdomen, Pelvis N/A Computed Tomography Specimen (Source) Anatomical Collection Method Collection Time Re ceived Time Location / / Volume Laterality 05/04/2011 3:16 PM CITY CONTROLLER Narrative 05/04/2011 3:23 PM CITY CONTROLLER 04-May-2011 15:16:00 ??Exam: CT ABDOMEN w & PELVIS w Indications: [id number] - ct abd/pel - abd cellulitis infected [...] Electronically signed by: ?? Coy Diamond MD [id number] 04-May-2011 15:2 3 Procedure Note Coy Diamond M.D. - 08/06/2017Forma tting of this note might be different from the original. 04-May-2011 15:16:00 Exam: CT ABDOMEN w & PELVIS w Indications: [id number] - ct abd/pel - abd cellulitis infected [...] cysts. Electronically signed by: Coy Diamond MD [id number] 04-May-2011 15:2 3 Asiya Quijano M.D. IMG CT PROCEDURES Interpretation of Outside CT Abdomen and or Pelvis (05/03/2011 10:56 PM CITY CONTROLLER) Anatomical Region Laterality Modality Abdomen, Pelvis N/A Computed Tomography Specimen (Source) Anatomical Collection Method Collection Time Re ceived Time Location / / Volume Laterality 05/03/2011 10:56 PM CITY CONTROLLER Narrative 05/04/2011 6:42 AM CITY CONTROLLER 03-May-2011 22:56:00 ??Exam: Interp of OS CT Abd and or Pel Indications: Post-op Would infection? ORIGINAL REPORT - 03-May-2011 23:15:00 EXAM: Outside CT of the abdomen and pelv is with intravenous contrast performed 05/02/2011. COMPARISON: [facility] CT of the abdome n and [...] Electronically signed by: ?? Marjorie Blake MD [id number] 03-May-2011 23:15 I have reviewed the films/images and agr ee with the above interpretation. Electronically signed by: ?? Bisi Manley MD. ??[phone] 04-May-2011 06:4 2 Procedure Note Ventura Manley IV, M.D. - 08/06/2017F ormatting of this note might be different from the original. 03-May-2011 22:56:00 Exam: Interp of OS CT Abd and or Pel Indications: Post-op Would infection? ORIGINAL REPORT - 03-May-2011 23:15:00 EXAM: Outside CT of the abdomen and pelv is with intravenous contrast performed 05/02/2011. COMPARISON: [facility] CT of the abdome n and [...] base. Electronically signed by: Marjorie Blake MD [phone] 03-May-2011 23:15 I have reviewed the films/images and agr ee with the above interpretation. Electronically signed by: Bisi Manley MD. [id number] 04-May-2011 06:42 Asiya Quijano M.D. IMDio CT PROCEDURES documented in this encounter Visit Diagnoses Not on filedocumented in this encounter
--- OUTSIDE RECORDS SUMMARY | 2022-04-13 07:10 | XMS_ITS | Encounter Summary ---
:[address] [facility] Address [address] [place] [address] Care Team Providers Name Role Phone Unavailable [...]
--- OUTSIDE RECORDS SUMMARY | 2022-04-13 07:10 | XMS_ITS | Encounter Summary ---
:1935 Author Organization [facility] Address [address] [place] [address] Care Team Providers Name Role Phone Unavailable [...]
--- OUTSIDE RECORDS SUMMARY | 2022-04-13 07:10 | XMS_ITS | Encounter Summary ---
:1935 Author Organization [facility] Address [address] [place] [address] Care Team Providers Name Role Phone Elsewhere, [...] therapist referred patient back here for vertigo. [facility] -- here for vertigo - improved over [...] dry armd CD Reports - EYEGEN Id: [id number] Status: Fnl documented in this encounter Plan of Treatment Not on filedocumented as of this encounter Visit Diagnoses Not on filedocumented in this encounter Care Teams Elementary Secretary Relationship Specialty Start Date End Date Elsewhere, Pcp PCP - General Family Medicine 11/20/20 documented as of this encounter
--- OUTSIDE RECORDS SUMMARY | 2022-04-13 07:10 | XMS_ITS | Encounter Summary ---
:1935 Author Organization [facility] Address [address] [place] [address] Care Team Providers Name Role Phone Elsewhere, [...] when she lays in bed flat - [facility] - single D and N IMPRESSION / [...] ET HT CDM Reports - EYEGEN Id: [id number] Status: Fnl documented in this encounter Plan of Treatment Not on filedocumented as of this encounter Visit Diagnoses Not on filedocumented in this encounter Care Teams Sybase Developer Relationship Specialty Start Date End Date Elsewhere, Pcp PCP - General Family Medicine 11/20/20 documented as of this encounter
--- OUTSIDE RECORDS SUMMARY | 2022-04-13 07:10 | XMS_ITS | Encounter Summary ---
:1935 Author Organization [facility] Address [address] [place] [address] Care Team Providers Name Role Phone Elsewhere, [...] her appts multiple times due to this [facility] In September we were last trying 2 [...] mm LLL plug - ref [id number] lot [id number] DIAGNOSIS #1 po 3 mo BMR rec and LSR rec for ET HT #2 dry eye CDM Reports - EYEGEN Id: [id number] Status: Fnl documented in this encounter Plan of Treatment Not on filedocumented as of this encounter Visit Diagnoses Not on filedocumented in this encounter Care Teams Hospitality Specialist Relationship Specialty Start Date End Date Elsewhere, Pcp PCP - General Family Medicine 11/20/20 documented as of this encounter
--- OUTSIDE RECORDS SUMMARY | 2022-04-13 07:10 | XMS_ITS | Encounter Summary ---
:1935 Author Organization [facility] Address [address] [place] [address] Care Team Providers Name Role Phone Unavailable [...]
--- OUTSIDE RECORDS SUMMARY | 2022-04-13 07:10 | XMS_ITS | Encounter Summary ---
:1935 Author Organization [facility] Address [address] [place] [address] Care Team Providers Name Role Phone Elsewhere, [...] ET HT CDM Reports - EYEGEN Id: [id number] Status: Fnl documented in this encounter Plan of Treatment Not on filedocumented as of this encounter Visit Diagnoses Not on filedocumented in this encounter Care Teams [employer] Repairer Relationship Specialty Start Date End Date Elsewhere, Pcp PCP - General Family Medicine 11/20/20 documented as of this encounter
--- OUTSIDE RECORDS SUMMARY | 2022-04-13 07:10 | XMS_ITS | Encounter Summary ---
:1935 Author Organization [facility] Address [address] [place] [address] Care Team Providers Name Role Phone Elsewhere, [...] to you the antibiotic for another week [facility]. [facility] - reports diplopia D and N only [...] ET HT CDM Reports - EYEGEN Id: [id number] Status: Fnl documented in this encounter Plan of Treatment Not on filedocumented as of this encounter Visit Diagnoses Not on filedocumented in this encounter Care Teams Mechanical Applications Engineer Relationship Specialty Start Date End Date Elsewhere, Pcp PCP - General Family Medicine 11/20/20 documented as of this encounter
--- OUTSIDE RECORDS SUMMARY | 2022-04-13 07:10 | XMS_ITS | Encounter Summary ---
:1935 Author Organization [facility] Address [address] [place] [address] Care Team Providers Name Role Phone Unavailable [...]
--- OUTSIDE RECORDS SUMMARY | 2022-04-13 07:10 | XMS_ITS | Encounter Summary ---
:1935 Author Organization [facility] Address [address] [place] [address] Care Team Providers Name Role Phone Elsewhere, Pcp Primary Care Provider Unavailable Encounter Details Date Type Department Care Team Description 11/20/2020 Clinical Communication Department of Sarai Sauer, Obstetrics and P.A.-C. Gynecology, Division of [address] [facility] Urogynecology in [place], [place] [address] [place] [address] [place], [place] (Work) [phone] Social History Tobacco Use Types Packs/Day Years [...] in this encounter Care Teams Manager Quality Compliance Relationship Specialty Start Date End Date Elsewhere, Pcp PCP - General Family Medicine 11/20/20 documented as of this encounter
== END 2022-03-23 03:12 | disposition home or self-care (01) ==
LOC: AMB 04-13 07:07
PROVIDERS: PCP Family Medicine; Visit Provider Family Medicine
DX: M54.9 Dorsalgia, unspecified (principal)
CPT/HCPCS: A0425; A0427

== ENCOUNTER 2022-03-23 03:36 | Emergency (ER) | payer MEDICARE, BC, SELFPAY ==
[2022-03-23 03:41] VITALS: BP 167/78; PULSE 64; RESP 18; TEMP 36.7; O2SAT 99; BMI 22.1
--- NOTE | 2022-03-23 03:44 | ED.BACK ---
HPI - Back Pain/Injury General Time Seen by Provider: 03:45 Date Seen: 03/23/22 Chief Complaint: Back Injury/Pain Stated Complaint: Backpain Time Seen by Provider: 03/23/22 03:43 Source: patient, RN notes reviewed and old records reviewed Mode of arrival: EMS Limitations: no limitations History of Present Illness HPI Narrative: Cary is a very pleasant 86-year-old female with a history of recent UTI treated with antibiotic, rectocele, hypertension who comes to the emergency room for evaluation regarding right foot back pain. Patient noted the onset of back pain 4 days ago as she was getting into bed. She states it came on suddenly and has been persistent since that time. She does not really feel that movement causes her greatly does increase discomfort. She did take Tylenol arthritis tonight for pain but because it was worsening she came in via EMS. Patient notes that the pain seems to start high she shows this to be her posterior rib cage and radiates into the right low back. She denies radiation into her legs or weakness. She cannot recall any specific trauma she denies fever and chills. She states that she has had low sodium in the past. She states that she did finish her antibiotics for UTI and it helped. She notes that she always has bladder issues because of multiple surgeries and a persistent rectocele. She notes that she thinks perhaps the pain does wrap around a bit to her right lower abdomen. However, she states her abdomen is always sensitive because of multiple surgeries with mesh placement. Related Data Home Medications Medication Instructions Recorded Confirmed amlodipine 2.5 mg tablet mg 11/10/21 gabapentin 300 mg capsule mg 11/10/21 ketotifen fumarate 0.025 % (0.035 drp ophthalmic (eye) 11/10/21 %) eye drops (Zaditor) levothyroxine 50 mcg tablet mcg 11/10/21 lisinopril 40 mg tablet mg 11/10/21 lorazepam 1 mg tablet mg 11/10/21 omeprazole 40 mg capsule,delayed mg 11/10/21 release sertraline 25 mg tablet mg 11/10/21 tamsulosin 0.4 mg capsule mg PO 11/10/21 temazepam 15 mg capsule mg 11/10/21 Allergies Allergy/AdvReac Type Severity Reaction Status Date / Time amlodipine Allergy Unknown Verified 03/23/22 06:06 atorvastatin Allergy Unknown Verified 03/23/22 06:06 atropine Allergy Unknown Verified 03/23/22 06:06 ciprofloxacin Allergy Unknown Verified 03/23/22 06:06 cyclobenzaprine Allergy Unknown Verified 03/23/22 06:06 doxycycline Allergy Unknown Verified 03/23/22 06:06 hydrochlorothiazide Allergy Unknown Verified 03/23/22 06:06 ibuprofen [From Motrin] Allergy Unknown Verified 03/23/22 06:06 labetalol Allergy Unknown Verified 03/23/22 06:06 phenol Allergy Unknown Verified 03/23/22 06:06 Sulfa (Sulfonamide Allergy Unknown Verified 03/23/22 06:06 Antibiotics) trazodone Allergy Unknown Verified 03/23/22 06:06 glycerine Allergy Unknown Uncoded 03/23/22 06:06 high cosamin Allergy Unknown Uncoded 03/23/22 06:06 Review of Systems Status of ROS: Reports: 10 or more systems reviewed and unremarkable except as noted in History and below Const: Denies: fever or chills Eyes: Denies: change in vision ENMT: Denies: throat pain or difficulty swallowing Cardio: Denies: shortness of breath with exertion Resp: Denies: shortness of breath or cough GI: Denies: nausea, vomiting, diarrhea, constipation or difficulty swallowing : Denies: painful urination, urinary frequency or urinary urgency Musculo: Reports: back pain Integ/Breast: Denies: rash Neuro: Denies: headache PFSH PFSH Medical History Behcet's disease Diverticulosis Hernia History of basal cell cancer Hypertension Lumbago Osteopenia Rectocele TMJ arthralgia UTI (urinary tract infection) Surgical History H/O: hysterectomy History of appendectomy History of bladder suspension procedure History of hemorrhoidectomy History of sacrocolpopexy S/P MULU (total abdominal hysterectomy) Social History Smoking Status: Never smoker Do you use any of these nicotine containing products: None Second hand tobacco smoke exposure: No How often do you have a drink containing alcohol: never How often do you have six or more drinks on one occasion: Never AUDIT-C Alcohol total score: 0 Non-prescribed substance use: denies use Exam Narrative: Exam Narrative: Patient is alert and oriented. She is nontoxic in appearance. Head is atraumatic normocephalic. Lungs are clear to auscultation. Perhaps slightly decreased breath sounds on the right. Heart is with regular rate and rhythm. Abdomen is soft there is no specific localized tenderness but patient is rather tender throughout. Abdomen is protuberant but it is soft. Right flank with pain with palpation of beneath the right posterior ribcage. Positive CVA tenderness with percussion. Straight leg raise does not increase discomfort. Lower extremity strength and motor is intact. Const: Vital Signs, click to edit/add: Vital Signs - 24 hr 03/23/22 03:41 03/23/22 04:03 03/23/22 07:08 Temperature 98.0 F 98.0 F 98.7 F Pulse Rate [Right Pulse Oximeter] 64 66 Respiratory Rate 18 16 Blood Pressure [Ri ght Upper Arm] 167/78 H 147/77 H Pulse Oximetry 99 98 Oxygen Delivery Me thod Room Air Room Air Course Course Hospital Course: Patient will have IV placed, 500 mL normal saline given as well as Tylenol 500 mg p.o.. Will check CBC, comprehensive panel, urinalysis, CRP, amylase, lipase. Plan on further imaging once lab results have been returned. Reevaluation(s) Reevaluation #1: Creatinine within normal limits. Patient appears to have pain out of proportion to exam and thus will proceed with CT. Reevaluation #2: Patient has been stable during her time in the emergency room Vital Signs Vital signs: Initial Vital Signs Temperature 98.0 F 03/23/22 03:41 Temperature Source Temporal Artery Scan 03/23/22 03:41 Pulse Rate 64 03/23/22 03:41 Respiratory Rate 18 03/23/22 03:41 Blood Pressure 167/78 H 03/23/22 03:41 Blood Pressure Mean 107 03/23/22 03:41 Blood Pressure Position Supine 03/23/22 03:41 Pulse Oximetry 99 03/23/22 03:41 Oxygen Delivery Method 03/23/22 03:41 Vital Signs Temperature 98.0 F 03/23/22 03:41 Pulse Rate 64 03/23/22 03:41 Respiratory Rate 18 03/23/22 03:41 Blood Pressure 167/78 H 03/23/22 03:41 Pulse Oximetry 99 03/23/22 03:41 Oxygen Delivery Method 03/23/22 03:41 Temperature 98.7 F 03/23/22 07:08 Pulse Rate 66 03/23/22 07:08 Respiratory Rate 16 03/23/22 07:08 Blood Pressure 147/77 H 03/23/22 07:08 Pulse Oximetry 98 03/23/22 07:08 Oxygen Delivery Method 03/23/22 07:08 MDM - Back Pain/Injury MDM Narrative Medical decision making narrative: 1. Right flank and back pain-patient is noted to have reassuring laboratory values, urinalysis with no evidence of hematuria or UTI as well as negative CRP. At this time I am not able to explain patient's discomfort. I did talk to patient about the importance of following up with her primary MD if she is not doing better. I would also like her to continue to observe this area and seek medical attention should she have the onset of a rash. No evidence of shingles type rash today. Patient has not had a fever, vomiting, or other red flag symptoms. She is feeling better after having received Tylenol. 2. Recent UTI -no evidence of UTI 3. Disposition-patient is discharged home. Ask her to follow up with her primary MD for ongoing symptoms and as needed. In the interim she may use Tylenol or as needed. Tylenol 500 mg was given here in the ED and did seem to help. I did explain to Cary that if she has worsening symptoms I would like her to return to the emergency room. Note patient did have distended gallbladder but no evidence of stones other abnormality CT. She had no Davis sign on examination as well as reassuring white count and CRP. However, should the pain return and she worsen would recommend ultrasound. Medical Records Attestation: I reviewed the patient's medical records. Lab Data Attestation: I reviewed the patient's lab results. Labs: Lab Results 03/23/22 03/23/22 03/23/22 Range/Units 04:00 04:05 04:05 WBC 3.95 L (4.50-11.00) K/uL RBC 3.64 L (4.00-5.20) m/uL Hgb 11.9 L (12.0-16.0) gm/dL Hct 35.8 (33.0-51.0) % MCV 98 (80-100) fL MCH 33 (26-34) pg MCHC 33 (32-36) gm/dL RDW Coeff of Isaias 12.4 (11.5-15.5) % Plt Count 230 (140-440) K/uL Neut % (Auto) 57.4 (42.0-72.0) % Lymph % (Auto) 26.8 (20-44) % [place] % (Auto) 8.9 (0.0-11.0) % Eos % (Auto) 5.3 (0.0-7.0) % Baso % (Auto) 0.8 (0.0-3.0) % Neut # (Auto) 2.30 (1.7-7.0) K/uL Lymph # (Auto) 1.10 (0.90-2.90) K/uL [place] # (Auto) 0.40 (0.00-0.90) K/UL Eos # (Auto) 0.20 (0.00-0.50) K/uL Baso # (Auto) 0.00 (0.00-0.30) K/uL Abs Immat Gran (auto) 0.00 (0.00-0.30) K/uL Imm/Tot Granulo (auto) 0.8 % Sodium 133 L (135-149) mmol/L Potassium 4.1 (3.6-5.1) mmol/L Chloride 96 (96-114) mmol/L Carbon Dioxide 29 (20-32) mmol/L BUN 18 (7-30) mg/dL Creatinine 0.8 (0.5-1.5) mg/dL Estimated Creat Clear 37.68 Estimated GFR 73 ml/min Glucose 88 (60-115) mg/dL Calcium 9.6 (8.4-10.6) mg/dL Total Bilirubin 0.6 (0.1-1.5) mg/dL AST 37 H (12-35) U/L ALT 37 H (4-35) U/L Alkaline Phosphatase 76 (40-150) U/L C-Reactive Protein < 0.5 L (0.5-1.0) mg/dL Total Protein 7.3 (6.0-8.3) g/dL Albumin 4.5 (3.3-5.0) g/dL Amylase 86 (18-89) U/L Lipase 67 (23-300) U/L Urine Color Yellow (Yellow) Urine Appearance Clear (Clear) Urine pH 7.0 (5.0-8.5) Ur Specific [place] 1.015 (1.000-1.030) Urine Protein Negative (Negative) Urine Glucose (UA) Negative (Negative) Urine Ketones Negative (Negative) Urine Blood 1+ A (Negative) Urine Nitrite Negative (Negative) Urine Bilirubin Negative (Negative) Urine Urobilinogen 0.2 (0.2-1.0) Ur Leukocyte Esterase Negative (Negative) Urine RBC 0-2 (0-2) Urine WBC 0-2 (0-5) Ur Squamous Epith Cells None (None-Few) Urine Bacteria None (None) Imaging Data CT Chest/Ab/Pelvis: Attestation: I have reviewed the pertinent imaging results. My impression: No evidence of ureteral stone Radiologist's impression: Heart size normal substernal extension a goiter. No adenopathy. No pericardial effusion. Atherosclerotic vascular calcifications are noted. There is fluid in the esophagus suggesting gastroesophageal reflux. The lungs show no focal consolidation, infiltrate or mass. Minimal bibasilar atelectasis. Biapical pleural parenchymal scarring. Evidence of remote granulomatous infection. ABDOMEN AND PELVIS: LIVER/BILIARY SYSTEM:The liver is normal in size and configuration. There is no focal mass and there is no intra- or extra hepatic biliary ductal dilatation.Distended but otherwise unremarkable appearing gallbladder. ADRENALS: Normal KIDNEYS, URETERS and BLADDER:A few scattered low-density lesions are noted too small to characterize but likely cysts. No evidence of hydronephrosis or hydroureter. The bladder appears normal. SPLEEN:Normal appearance. PANCREAS: Appears normal. RETROPERITONEUM and MESENTERY: There is no mass, adenopathy or aortic aneurysm. Atherosclerotic vascular calcifications GASTROINTESTINAL SYSTEM: Mild fecal retention without mechanical obstruction. Diverticulosis. No diverticulitis. No specific visible abnormality regarding the bowel. PELVIS: No mass, adenopathy or free fluid. OSSEOUS STRUCTURES and ABDOMINAL WALL: Demineralization, degenerative changes and scoliosis.No significant abdominal wall defect. OTHER: No free fluid or free air. IMPRESSION: 1. No specific visible cause for pain in the chest, abdomen and pelvis. Discharge Plan Discharge Clinical Impression: Back pain Patient Disposition: Home, Self-Care Condition: Improved Instructions: Back Pain (ED) Additional Instructions: At this time I have been unable to find a reason for your discomfort. Your laboratory values and CT are all reassuring. Please follow-up with your regular MD if you have ongoing problems. Return to the emergency room if you have the onset of new symptoms. Prescriptions: No Action ketotifen fumarate [Zaditor] 0.025 % (0.035 %) drops OPHTHALMIC (EYE) Label Comments: USE 1 DROP IN AFFECTED EYE/EYES NEEDED TWICE DAILY. amlodipine 2.5 mg tablet Label Comments: TAKE ONE TABLET BY MOUTH ONCE DAILY omeprazole 40 mg capsule,delayed release(DR/EC) Label Comments: TAKE 1 CAPSULE BY MOUTH EVERY DAY BEFORE A MEAL. DO NOT CRUSH OR CHEW temazepam 15 mg capsule Label Comments: TAKE 1 CAPSULE (15 MG) BY MOUTH AT BEDTIME IF NEEDED FOR SLEEP. DO NOT TAKE LORAZEPAM WITHIN 6 HOURS ON FRONT OR BACK END OF THIS MED. tamsulosin 0.4 mg capsule PO Label Comments: TAKE 1 CAPSULE (0.4 MG) BY MOUTH ONCE DAILY AFTER A MEAL. levothyroxine 50 mcg tablet Label Comments: TAKE ONE TABLET BY MOUTH BEFORE BREAKFAST gabapentin 300 mg capsule Label Comments: TAKE ONE CAPSULE BY MOUTH EVERY MORNING THEN 2 CAPSULES AT AT NOON AND 3 CAPSULES AT BEDTIME sertraline 25 mg tablet Label Comments: TAKE 1 TABLET (25 MG) BY MOUTH EVERY MORNING. lorazepam 1 mg tablet Label Comments: TAKE 1 TABLET (1 MG) BY MOUTH 2 TIMES DAILY. lisinopril 40 mg tablet Label Comments: TAKE 1 TABLET (40 MG) BY MOUTH ONCE DAILY. Follow Up/Referrals: Daisy Carpenter DO [Primary Care Provider] - Stand Alone Forms: [facility]
[2022-03-23 04:03] VITALS: TEMP 36.7
[2022-03-23] MEDS: ACETAMINOPHEN 500 MG TABLET PO (04:03)
[2022-03-23] MEDS: 0.9 % SODIUM CHLORIDE 500 ML 500 ML IV (04:08)
--- OUTSIDE RECORDS SUMMARY | 2022-03-23 04:16 | XMS_ITS | Encounter Summary ---
:1935 Author Organization [facility] Address [address] [place] [address] Care Team Providers Name Role Phone Elsewhere, Pcp Primary Care Provider Unavailable Encounter Details Date Type Department Care Team Description 03/19/2015 Historical Ophthalmology RST OPH Wayne Mina M.D. Social History Tobacco Use Types Packs/Day Years Used Date Smoking Tobacco: Never Assessed Sex Assigned at Date Recorded Not on file documented as of this encounter Progress Notes Wayne Mina M.D. - 03/19/2015 2:57 PM CST Eye General CHIEF COMPLAINT recurrence of dist ET and LHT HISTORY OF PRESENT ILLNESS 79 year old female here for recurrnce of dist ET and LHT - almost 2 years sp BMR rec and LSR rec . Pt states that her vision is slanting down and to the right. Denies double vision, ocular pain, flashes, and floaters. [facility] - new lenes w new prism Feb 2015 - No diplopia D and N - but sees slant when look sdown IMPRESSION / REPORT / PLAN c#1 recurrnce of dist ET and LHT Better in new prism sp BMR rec and LSR rec 2 y ago symptomatic excyclotropia - offered Dori Young - but declined because rarely bothers - jazmín if worse otherwise 1 yr #2 dry eyes continue refresh plus and add lacrilube at night DIAGNOSIS #2 dry eyes CDM Reports - EYEGEN Id: [id number] Status: Fnl documented in this encounter Plan of Treatment Not on filedocumented as of this encounter Visit Diagnoses Not on filedocumented in this encounter Care Teams Airport Shuttle Driver Relationship Specialty Start Date End Date Elsewhere, Pcp PCP - General Family Medicine 11/20/20 documented as of this encounter
--- OUTSIDE RECORDS SUMMARY | 2022-03-23 04:16 | XMS_ITS | Clinical Summary ---
:1935 Author Organization [facility] Address [address] [place] [address] Care Team Providers Name Role Phone Elsewhere, Pcp Primary Care Provider Unavailable Source Comments Patient records contain information from all sites at [facility]. For routine questions regarding patient records, call [phone] during business hours, M-F 8:00 AM - 5:00 PM Central Time. Record requests for emergency care only can be directed to [phone] at any time.[facility] Allergies Active Allergy Reactions Severity Noted Date Comments Cephalexin Itching 02/04/2020 Ciprofloxacin Other (see comments) 06/28/2020 Doxycycline GI intolerance, Rash 09/30/2019 Sulfa (Sulfonamide Antibiotics) Hives, Rash High 9 Adhesive Rash 11/14/2008 Medications Medication Sig Dispensed Refills Start Date End Date Status levothyroxine (Synthroid) Take 75 mcg by 0 Active 75 mcg tablet mouth every morning before breakfast. LORazepam (ATIVAN) 1 mg Take 1 mg by 0 Active tablet mouth 2 (two) times a day. lisinopriL Take 1 tablet 0 06/18/2013 Acti ve (PRINIVIL,ZESTRIL) 40 mg by mouth at tablet bedtime. LORazepam (ATIVAN) 1 mg Take 1 mg by 0 10/28/2020 Active tablet mouth 2 (two) times a day. omeprazole (PriLOSEC) 20 mg Take [address] capsule [address] capsule by mouth every morning. gabapentin (NEURONTIN) 300 Take 300 mg by 0 10/16/19 21 Active mg capsule mouth 3 (three) times a day. aspirin (Aspirin Low Dose) Take 1 tablet [address] tablet by mouth at bedtime. polyethylene glycol Take 1 Dose by 0 06/18/2013 Active (MIRALAX) 17 gram/dose oral mouth daily as powder needed. 1/2- 1 capful as needed multivitamin tablet Take 1 tablet 0 03/06/2012 Active by mouth daily. tamsulosin (FLOMAX) 0.4 mg Take 0.04 mg by 0 021 Active 24 hr capsule mouth daily after dinner. Daily after a meal carboxymethylcellulose Administer 2 0 02/12/2015 Active (Refresh Plus) 0.5 % drops into both ophthalmic solution eyes 2 (two) times a day. Active Problems No known active problems Immunizations Name Administration Dates Next Due Influenza Split 03/20/2012, 03/09/2008 PPSV23 03/09/2008 Tdap 09/06/2007 Social History Tobacco Use Types Packs/Day Years Used Date Smoking Tobacco: Former Cigarettes Quit : 1988 Smokeless Tobacco: Never Alcohol Use Standard Drinks/Week Comments Not Currently 0 (1 standard drink = 0.6 oz pure alcoho l) Sex Assigned at Date Recorded Not on file Last Filed Vital Signs Vital Sign Reading Time Taken Comments Blood Pressure 175/63 11/20/2020 9:00 PM CDT Pulse 55 11/20/2020 9:45 PM CDT Temperature 36.5 ??C (97.7 ??F) 11/20/2020 5:25 PM CDT Respiratory Rate 19 11/20/2020 9:45 PM CDT Oxygen Saturation 98% 11/20/2020 9:45 PM CDT Inhaled Oxygen Concentration - - Weight 60.6 kg (133 lb 7.8 oz) 11/20/2020 1:37 PM CDT Height 168.1 cm (5' 6.18) 11/20/2020 1:37 PM CDT Body Mass Index 21.43 11/20/2020 1:37 PM CDT Plan of Treatment Health Maintenance Due Date Last Done Comments Thyroid Stimulating Hormone (TSH) 03/12/2021 03/12/2020, , test for thyroid function 11/15/2018, Additional history exists Depression Screening (Annual 05/09/2021 PHQ-2) Fall Risk Screen (Annual) 05/09/2021 Creatinine Level 11/20/2021 11/20/2020, 09/20/2018, 03/02/2018 Potassium Level 11/20/2021 11/20/2020, 09/20/2018, 03/02/2018 Sodium Level 11/20/2021 11/20/2020, 09/20/2018, 03/02/2018, Additional history exists COVID-19 Vaccine (5 - Booster for 12/03/2021 10/08/2021, , Moderna series) 06/18/2020, Additional history exists DTaP,Tdap,and Td Vaccines (4 - Td 05/04/2022 05/04/2012, , or Tdap) 10/26/2005, Additional history exists Pneumococcal vaccine (65+ years) Completed 05/22/2015, 05/2007, 10/26/2005 Zoster Vaccines Completed 02/28/2019, 12/27/2018, 02/28/2009 Influenza Vaccine Completed 02/25/2022, 02/23/2021, 02/14/2020, Additional history exists Insurance Payer Benefit Plan Subscriber ID Effective Phone Address Typ e / Group Dates MEDICARE MEDICARE A [id number] 2002-Pres [address] [place] [address] BLUE CROSS BCBS BISHOP PAIUTE [id number] 2016-Pres [phone] [address] Cost Share BLUE SHIELD BLUE COST [place] [phone] [place] [address] Advance Directives For more information, please contact: [phone] Documents on File Type Date Recorded Patient Secret Code Expert Explanati on Advance Directives 03/25/2016 12:00 AM Legacy do cument. See document viewer. Advance Directives 11/24/2008 12:00 AM Legacy doc ument. See document viewer. Advance Directives 11/24/2008 12:00 AM Legacy doc ument. See document viewer. Care Teams Seed Sales Manager Relationship Specialty Start Date End Date Elsewhere, Pcp PCP - General Family Medicine 11/20/20
--- OUTSIDE RECORDS SUMMARY | 2022-03-23 04:16 | XMS_ITS | Encounter Summary ---
:1935 Author Organization [facility] Address [address] [place] [id number] Care Team Providers Name Role Phone Elsewhere, Pcp Primary Care Provider Unavailable Encounter Details Date Type Department Care Team Description 11/20/2020 Clinical Communication Department of Sarai Sauer, Obstetrics and P.A.-C. Gynecology, Division of [address] [facility] Uro[facility]necology in [place], [place] [address] [place] [address] [place], [place] (Work) [phone] Social History Tobacco Use Types Packs/Day Years Used Date Smoking Tobacco: Former Cigarettes Quit : 1988 Smokeless Tobacco: Never Alcohol Use Standard Drinks/Week Comments Not Currently 0 (1 standard drink = 0.6 oz pure alcoho l) Sex Assigned at Date Recorded Not on file documented as of this encounter Plan of Treatment Not on filedocumented as of this encounter Visit Diagnoses Not on filedocumented in this encounter Care Teams Manager Quality Improvement Relationship Specialty Start Date End Date Elsewhere, Pcp PCP - General Family Medicine 11/20/20 documented as of this encounter
--- OUTSIDE RECORDS SUMMARY | 2022-03-23 04:16 | XMS_ITS | Encounter Summary ---
:1935 Author Organization [facility] Address [address] [place] [address] Care Team Providers Name Role Phone Elsewhere, Pcp Primary Care Provider Unavailable Encounter Details Date Type Department Care Team Description 02/25/2014 Historical Ophthalmology RST OPH Lora Dooley M.B.B.S. Social History Tobacco Use Types Packs/Day Years Used Date Smoking Tobacco: Never Assessed Sex Assigned at Date Recorded Not on file documented as of this encounter Progress Notes Lora Dooley M.B.B.S. - 02/25/2014 2:06 PM CDT Eye General CHIEF COMPLAINT ER HISTORY OF PRESENT ILLNESS This is a 78 year old female here today for an ER visit. Patient states that on Tuesday she pulled her plug up in her left eye. Blurred vision; left eye; x 2 days; constantly;worsening. Denies ocular pain. IMPRESSION / REPORT / PLAN Repositioned the punctal plug. Review as scheduled or sooner if needed. CDM Reports - EYEGEN Id: [id number] Status: Fnl documented in this encounter Plan of Treatment Not on filedocumented as of this encounter Visit Diagnoses Not on filedocumented in this encounter Care Teams Bioinformatics Engineer Relationship Specialty Start Date End Date Elsewhere, Pcp PCP - General Family Medicine 11/20/20 documented as of this encounter
--- OUTSIDE RECORDS SUMMARY | 2022-03-23 04:16 | XMS_ITS | Encounter Summary ---
:1935 Author Organization [facility] Address [address] [place] [address] Care Team Providers Name Role Phone Elsewhere, Pcp Primary Care Provider Unavailable Encounter Details Date Type Department Care Team Description 10/04/2013 Historical Ophthalmology RST OPH Wayne Mina M.D. Social History Tobacco Use Types Packs/Day Years Used Date Smoking Tobacco: Never Assessed Sex Assigned at Date Recorded Not on file documented as of this encounter Progress Notes Wayne Mina M.D. - 10/04/2013 12:50 PM CDT Eye General CHIEF COMPLAINT Blurred vision, left eye HISTORY OF PRESENT ILLNESS 06/19/13 Bilateral medial rectus recession of 4 mm with the left on adjustable suture. Recession of the left superior rectus 2 mm on adjustable suture. Blurred vision; left eye; x 1 month since getting new glasses; at distance. Denies diplopia with newcorrection. [facility] - has to close Left eye for clarity distance - not diplopia IMPRESSION / REPORT / PLAN #1 po 3 mo BMR rec and LSR rec for ET HT excellent alignment pt v happy to be out of prism - rates impr as at least 90% main complaint is sl distance blur - sl suggestion of recurrent div ET - will try 2 MIKE left fresnel to eval - see 3 w cataracts may be contributing DIAGNOSIS #1 po 3 mo BMR rec and LSR rec for ET HT CDM Reports - EYEGEN Id: [id number] Status: Fnl documented in this encounter Plan of Treatment Not on filedocumented as of this encounter Visit Diagnoses Not on filedocumented in this encounter Care Teams Jump Roll Operator Relationship Specialty Start Date End Date Elsewhere, Pcp PCP - General Family Medicine 11/20/20 documented as of this encounter
--- OUTSIDE RECORDS SUMMARY | 2022-03-23 04:16 | XMS_ITS ---
:1935 Author Care Team Providers Name Role Phone Laureano Miner Primary Care Provider Unavailable Allergies Code Code System Name Reaction Severity Status Onset Sulfamethoxazole-trimetho Hives ? Acti ve 10/23/2015 prim 7454 RxNorm Nitrofurantoin Diarrhea ? Active 07/15 2231 RxNorm Cephalexin Itching ? Active ? [id number] RxNorm Cipro ? ? Active ? 79953 RxNorm Cyclobenzaprine Dizziness ? Active ? Itching ? Active ? 3640 RxNorm Doxycycline ? ? Active ? 5487 RxNorm Hydrochlorothiazide ? ? Active ? 516263 RxNorm Hyoscyamine ? ? Active ? 6185 RxNorm Labetalol ? ? Active ? 104027 RxNorm Lipitor ? ? Active ? 24478 RxNorm Mirtazapine ? ? Active ? 70680 RxNorm Tramadol ? ? Active ? 77789 RxNorm Trazodone ? ? Active ? Medications Name Status Start Date Stop Date ? ? amlodipine 2.5 mg tablet Active ? Not ramya ilable TAKE 1 TABLET BY MOUTH EVERY DAY amlodipine 5 mg tablet Active ? Not avail able cefadroxil 500 mg capsule Active ? Not av ailable cefdinir 300 mg capsule Active ? Not avai lable cephalexin 250 mg capsule Active ? Not av ailable TAKE ONE CAPSULE BY MOUTH EVERY 24 HOURS cephalexin 500 mg capsule Active ? Not av ailable ciprofloxacin 250 mg tablet Active ? Not available ciprofloxacin 500 mg tablet Active ? Not available TK 1 T PO BID FOR 7 DAYS doxycycline monohydrate 100 mg capsule Active ? Not available doxycycline monohydrate 50 mg capsule Active ? Not available gabapentin 300 mg capsule Active ? Not av ailable ketotifen 0.025 % (0.035 %) eye drops Active ? Not available levofloxacin 250 mg tablet Active ? Not a vailable levothyroxine 50 mcg tablet Active ? Not available TAKE 1 TABLET BY MOUTH BEFORE BREAKFAST levothyroxine 75 mcg tablet Active ? Not available lisinopril 40 mg tablet Active ? Not avai lable TAKE 1 TABLET BY MOUTH ONCE DAILY lorazepam 1 mg tablet Active ? Not availa ble TAKE 1 TABLET BY MOUTH 2 TIMES DAILY minocycline 100 mg capsule Active ? Not a vailable mupirocin 2 % topical ointment Active ? N ot available nitrofurantoin macrocrystal 50 mg capsule Active ? Not available TAKE 1 CAPSULE BY MOUTH ONCE DAILY. GENERIC EQUIVALENT FOR MACR ODANTIN omeprazole 40 mg capsule,delayed release Active ? Not available TAKE ONE CAPSULE BY MOUTH EVERY DAY BEFORE A MEAL. DO NOT CRUSH OR CHEW oxybutynin chloride 5 mg tablet Active ? Not available phenazopyridine 100 mg tablet Active ? No t available TAKE TWO TABLETS(200MG) BY MOUTH THREE TIMES DAILY NEEDED Senna Plus 8.6 mg-50 mg tablet Active ? N ot available Shingrix (PF) 50 mcg/0.5 mL intramuscular suspension, kit Active ? Not available tamsulosin 0.4 mg capsule Active ? Not av ailable TAKE ONE CAPSULE BY MOUTH ONCE DAILY AFTER A MEAL triamcinolone acetonide 0.1 % topical ointment Active ? Not available APPLY TOPICALLY TO THE AFFECTED AREA THREE TIMES DAILY Problems Name Status Onset Date Source ? 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 Incomplete Emptying of Bladder Active 12/13/2019 ? Urinary Incontinence Active 12/13/2019 ? Increased Frequency of Urination Active 12/13/2019 ? Procedures None recorded. Results Lab Results None recorded. Past Encounters None recorded. Social History None recorded. Vaccine List None recorded. Plan of Care Reminders Provider Appointments None recorded. ? ? Lab None recorded. ? ? Referral None recorded. ? ? Procedures None recorded. ? ? Surgeries None recorded. ? ? Imaging None recorded. ? ? Vitals Height Weight BMI 5 ft 5 in 124 lbs 20.6 kg/m2
--- OUTSIDE RECORDS SUMMARY | 2022-03-23 04:16 | XMS_ITS | Encounter Summary ---
:1935 Author Organization [facility] Address [address] [place] [address] Care Team Providers Name Role Phone Unavailable Primary Care Provider Unavailable Encounter Details Date Type Department Care Team Description 06/14/2019 Clinical Communication Department of Wayne Mina Ophthalmology conrado Robertson M.D. [place], [place] [address] [place] [address] Social History Tobacco Use Types Packs/Day Years Used Date Smoking Tobacco: Unknown Sex Assigned at Date Recorded Not on file documented as of this encounter Miscellaneous Notes Telephone Encounter - Wayne Mina M.D. - 06/19/2019 11:09 AM POLARITY TESTER Sorry, We cant send a prescription that is almost 2 years out of date. [facility] RITY TESTER Telephone Encounter - Amanda Thao R.T.(R)() - 06/14/2019 3:[address] Mina, Patient called wanting her eyeglass prescription from 08/25/2017 sent [address] [facility] in [place]. I do not see an rx in her chart. She doesn't think her prescription changed from 2015, but believes she had a refraction done last time she was here so should have an rx from 2018. Would you please update if she had a refraction so I'm able to print an rx to send? Thank you. Rx can be mailed to: Dr. Lul Combs [address] [place] [address] RITY TESTER documented in this encounter Plan of Treatment Not on filedocumented as of this encounter Visit Diagnoses Not on filedocumented in this encounter
--- OUTSIDE RECORDS SUMMARY | 2022-03-23 04:16 | XMS_ITS | Encounter Summary ---
:1935 Author Organization [facility] Address [address] [place] [address] Care Team Providers Name Role Phone Elsewhere, Pcp Primary Care Provider Unavailable Encounter Details Date Type Department Care Team Description 02/12/2015 Historical Ophthalmology [facility] Wayne Mina M.D. Social History Tobacco Use Types Packs/Day Years Used Date Smoking Tobacco: Never Assessed Sex Assigned at Date Recorded Not on file documented as of this encounter Progress Notes Wayne Mina M.D. - 02/12/2015 1:34 PM CDT Eye General CHIEF COMPLAINT year follow up and wants to know if plug is still in tear duct, left eye HISTORY OF PRESENT ILLNESS 06/19/2013 surgery for Esotropia. Left hypertropia. Bilateral medial rectus recession of 4 mm with the left on adjustable suture.. Recession of the left superior rectus 2 mm on adjustable suture. 79 year old female here for year follow up and wants to know if plug is still in tear duct, left eye. She states that double vision is coming back at a distance, closing one eye helps sometimes, not all of the time. Images are side by side with overlap. Drives only in town, not highway. 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
--- OUTSIDE RECORDS SUMMARY | 2022-03-23 04:16 | XMS_ITS | Encounter Summary ---
:1935 Author Organization [facility] Address [address] [place] [address] Care Team Providers Name Role Phone Elsewhere, Pcp Primary Care Provider Unavailable Encounter Details Date Type Department Care Team Description 01/21/2014 Historical Ophthalmology [facility] Wayne Mina M.D. Social History Tobacco Use Types Packs/Day Years Used Date Smoking Tobacco: Never Assessed Sex Assigned at Date Recorded Not on file documented as of this encounter Progress Notes Wayne Mina M.D. - 01/21/2014 3:04 PM CDT Eye General CHIEF COMPLAINT Check up HISTORY OF PRESENT ILLNESS 06/19/13 Bilateral medial rectus recession of 4 mm with the left on adjustable suture. Recession of the left superior rectus 2 mm on adjustable suture. 78 year old female here for a check up s/p Bilateral medial rectus recession of 4 mm with the left on adjustable suture. Vision is stable. Occasional double vision. Patient feels there is something in her left eye. Has issues wearing the fresnel lens as it seems to bother her- tried on and off. More blur and irritation then double. in and out of the hospital- had to cancel her appts multiple times due to this [facility] In September we were last trying 2 MIKE Fresnel - no improvement - Now more blur in distance - denies double - though DQ sometime str ahead and rarely near IMPRESSION / REPORT / PLAN #1 po 3 mo BMR rec and LSR rec for ET HT seems to be improved w 2BO and 1 BD L - change Left lens se 3 mo #2 dry eye 0.6 mm LLL plug - ref [id number] lot [id number] DIAGNOSIS #1 po 3 mo BMR rec and LSR rec for ET HT #2 dry eye CDM Reports - EYEGEN Id: [id number] Status: Fnl documented in this encounter Plan of Treatment Not on filedocumented as of this encounter Visit Diagnoses Not on filedocumented in this encounter Care Teams Stained Glass Painter Relationship Specialty Start Date End Date Elsewhere, Pcp PCP - General Family Medicine 11/20/20 documented as of this encounter
--- OUTSIDE RECORDS SUMMARY | 2022-03-23 04:16 | XMS_ITS | Encounter Summary ---
:1935 Author Organization [facility] Address [address] [place] [address] Care Team Providers Name Role Phone Elsewhere, Pcp Primary Care Provider Unavailable Encounter Details Date Type Department Care Team Description 08/25/2017 Historical Ophthalmology [facility] Wayne Mina M.D. Social History Tobacco Use Types Packs/Day Years Used Date Smoking Tobacco: Unknown Sex Assigned at Date Recorded Not on file documented as of this encounter Progress Notes Wayne Mina M.D. - 08/25/2017 1:53 PM CDT Eye General HISTORY OF PRESENT ILLNESS 06/19/2013 surgery for Esotropia. Left hypertropia. Bilateral medial rectus recession of 4 mm with the left on adjustable suture.. Recession of the left superior rectus 2 mm on adjustable suture. 82 year old female here for follow up of recurrence of dist ET and LHT (better in new prism). Doublevision(at an angle) with and without glasses for about 6 months- only at dist. last year. [facility] -tried Dr Combs's new Rx 8BO 8BO 2BD Left in Apr 2017 - but she felt sick to stomach - had to return glasses - IN CURRENT PRISM GLASSES MOSTLY DISTANCE DIPLOPIA - CONCERN IS WORSE DIPLOPIA IMPRESSION / REPORT / PLAN #1 recurrence of dist ET and LHT sp BMR rec and LSR rec 4 y ago Unable to toleate new Rx from Dr Combs (8 MIKE 8BO 2 BD) only seems to need sl more BI prism - suggest economically changing just L lens to add 2 MIKE more - total 6 MIKE and 1 BU R excyclotropia - previously offered Dori Young - but doesnt appear to need today #2 dry eyes continue refresh plus - continue to follow w Dr Combs - letter sent DIAGNOSIS #1 recurrence of dist ET and LHT #2 dry eyes CDM Reports - EYEGEN Id: [id number] Status: Fnl documented in this encounter Plan of Treatment Not on filedocumented as of this encounter Visit Diagnoses Not on filedocumented in this encounter Care Teams Shipping And Receiving Relationship Specialty Start Date End Date Elsewhere, Pcp PCP - General Family Medicine 11/20/20 documented as of this encounter
--- OUTSIDE RECORDS SUMMARY | 2022-03-23 04:16 | XMS_ITS | Encounter Summary ---
:1935 Author Organization [facility] Address [address] [place] [id number] Care Team Providers Name Role Phone Unavailable Primary Care Provider Unavailable Reason for Visit Reason Onset Date Comments Communication 12/13/2017 Encounter Details Date Type Department Care Team Description 12/13/2017 Clinical Communication Department of Sarai Sauer, Communication Obstetrics and [facility] Gynecology in [address] [place] [address] [place] [phone] [place], [place] [phone] (Work) [phone] Social History Tobacco Use Types Packs/Day Years Used Date Smoking Tobacco: Unknown Sex Assigned at Date Recorded Not on file documented as of this encounter Miscellaneous Notes Telephone Encounter - Court Reaves R.N. - 12/15/2017 2:57 PM CDT Patient is calling to see if she should continue her estrogen cream that Jes started her on. Discussed that it will do nothing in the way of improving her rectocele but it does allow the tissue to be more healthy. Instructed that it is a personal choice in if she did not want to continue using theestrogen cream because of expense. States she is not a candidate for surgery and she does not have transportation to [place] to obtain a surgical opinion. At this moment she is content with leaving things as they are and she is aware that she can contact us at any time if she wishes any further intervention. Telephone Encounter - Inga Marcelino - 12/13/2017 2:38 PM CDT Patient saw [facility] in 2017 and is calling because she said that her rectocele has fallen down she wouldlike to know if she should still use the estrogen cream please call her when you can documented in this encounter Plan of Treatment Not on filedocumented as of this encounter Visit Diagnoses Not on filedocumented in this encounter
--- OUTSIDE RECORDS SUMMARY | 2022-03-23 04:16 | XMS_ITS | Encounter Summary ---
:1935 Author Organization [facility] Address [address] [place] [address] Care Team Providers Name Role Phone Elsewhere, Pcp Primary Care Provider Unavailable Reason for Visit Reason Comments Pelvic Pain Encounter Details Date Type Department Care Team Description 11/20/2020 Emergency Yousuf Iraheta M.D. [address] [place] [phone] Hyponatremia (Primary Dx); Emergency Department Juan Silva M.D., M.B.A. [address] [place] [phone] Pain Pelvic Female; [address] [facility] [place] [place] [address] Social History Tobacco Use Types Packs/Day Years Used Date Smoking Tobacco: Former Cigarettes Quit : 1988 Smokeless Tobacco: Never Alcohol Use Standard Drinks/Week Comments Not Currently 0 (1 standard drink = 0.6 oz pure alcoho l) Sex Assigned at Date Recorded Not on file documented as of this encounter Last Filed Vital Signs Vital Sign Reading [...] Mass Index 21.43 11/20/2020 1:37 PM CDT documented in this encounter Discharge Instructions Discharge InstructionsWiCristine sanchez MPAS, P.A.CathleenC. - 11/20/2020 9:53 PM CDT Contact your primary care provider tomorrow to schedule an appointment for follow-up and further evaluation. You should increase your intake of electrolytes in your diet and follow-up with your primary care provider for a recheck of your sodium level. You should increase your dose of Miralax to 1 capful three times daily until you begin to have 1-2 soft formed stools daily. At that time, you can decrease your dose to 1 capful daily. You can try taking your Ativan or Tylenol closer to bedtime as these medications seem to help with relief of your symptoms. AttachmentsThe following attachments cannot be sent through Care Everywhere. Hyponatremia Rvsa-rh-Ysqf (Telugu)Neuropathic Pain (Telugu)Constipation Adult Vezv-ns-Foqw (Telugu)documented in this encounter Medications at Time of Discharge Medication Sig Dispensed Refills Start Date End Date aspirin (Aspirin Low Dose) 81 Take 1 tablet by 0 02/12/[address] tablet mouth at bedtime. carboxymethylcellulose Administer 2 0 02/12/2015 (Refresh Plus) 0.5 % drops into both ophthalmic solution eyes 2 (two) times a day. lisinopriL (PRINIVIL,ZESTRIL) Take 1 tablet by 0 06/18/2013 40 mg tablet mouth at bedtime. LORazepam (ATIVAN) 1 mg tablet Take 1 mg by 0 mouth 2 (two) times a day. multivitamin tablet Take 1 tablet by 0 03/06/2012 mouth daily. omeprazole (PriLOSEC) [address] Take 1 capsule by 0 06/18/2013 capsule mouth every morning. polyethylene glycol (MIRALAX) Take 1 Dose by 0 17 gram/dose oral powder mouth daily as needed. 1/2- 1 capful as needed tamsulosin (FLOMAX) 0.4 mg 24 Take 0.04 mg by 0 0 08/06/2020 hr capsule mouth daily after dinner. Daily after a meal gabapentin (NEURONTIN) 300 mg Take 300 mg by 0 capsule mouth 3 (three) times a day. levothyroxine (Synthroid) 75 Take 75 mcg by 0 mcg tablet mouth every morning before breakfast. LORazepam (ATIVAN) 1 mg tablet Take 1 mg by 0 mouth 2 (two) times a day. documented as of this encounter ED Notes Cedric Iraheta M.D. - 11/20/2020 7:11 PM CDT I have personally seen and examined this patient. I have fully participated in the care of this patient. I have reviewed all clinical information including history, physical exam, orders, and plan. I agree with the note of the OPERATIONS SUPERVISOR/PA. Patient has history of pelvic mass for repair of her rectocele. She presents today with a burning discomfort that is in the low pelvis and radiates into her thighs. It disturbs are mostly at night. Is particularly bad at 2:00 a.m. this morning. It was severe burning pain. She has taken Ativan and Tylenol together which is improved the pain. On exam her abdomen is soft and nontender without mass or organomegaly except in the low pelvis she seemed to have some tenderness on my examination. It is unclear if this is neuropathic in origin which feels like versus structural issue related to difficulties with the mesh. Scan the abdomen pelvis to rule out any significant abnormality there. If negative she will need follow-up as an outpatient for neuropathic process. Final Diagnoses: as of Nov 24 1504 Hyponatremia Pain Pelvic Female Pain Leg Bilateral Cedric Iraheta M.D. 11/24/20 1506 Cristine Hill MPAS, P.A.-C. 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 She states that these sensation was much worse last night and states ???if this is hell, I do not want to be there.?? She states she walks with a walker at baseline and that she does not have these symptoms with ambulation. She notes they mostly occur at night at around 2am and awaken her from sleep and improve with Ativan and Tylenol taken in combination. She does report a history of a rectocele that was repaired and subsequently torethrough now with difficulty having bowel movements. She takes Miralax once daily to help with constipation symptoms and denies exacerbation of her symptoms with bowel movements. She was recently treated with antibiotics for a UTI and denies pain or burning with urination. She states this current pain is different than the neuropathy she has in her feet. She does not take any medications for her neuropathy. She was seen by family medicine on 10/13/2020 for similar symptoms. At that time, patient was mentioning 6 months of leg pain and worsening neuropathy symptoms inclusive of chronic numbness and tingling in both feet. She is noted to not have tolerated compression stockings in the past due to herneuropathy and has previously seen Neurology for concerns of possible Parkinson's disease. She did have an MRI of her lumbar spine in February 2020. 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 She denies fevers, chills, recent falls or traumas, saddle anesthesias, or immunocompromise. She denies any changes in her baseline ability to ambulate. She lives in an assisted living facility. REVIEW OF SYSTEMS Constitutional: Negative for chills, fatigue and fever. HENT: Negative for congestion. Eyes: Negative for visual disturbance. Respiratory: Negative for shortness of breath. Cardiovascular: Negative for chest pain, palpitations and leg swelling. Gastrointestinal: Positive for abdominal pain (suprapubic) and constipation. Negative for diarrhea, nausea and vomiting. Difficulty with bowel movements due to rectocele Genitourinary: Positive for pelvic pain. Negative for inability to urinate, dysuria and urgency. Musculoskeletal: Positive for myalgias and extremity pain (bilateral lower extremity). Skin: Negative for color change and rash. Neurological: Positive for numbness (bilateral feet and lower legs, chronic). Burning radiating down both legs Psychiatric/Behavioral: Positive for sleep disturbance (due to pain). OBJECTIVE Initial Vitals Temperature Pulse Rate Heart Rate Resp Rate Blood Pressure SpO2 11/20/20 1340 11/20/20 1340 11/20/20 1900 11/20/20 1340 11/20/20 1340 11/20/20 1340 36.7 ??C 65 (!) 51 18 (!) 170/86 99 % Pain Score 11/20/20 1552 7 PHYSICAL EXAMINATION Constitutional: Nursing note and vitals reviewed. HENT: Head: Normocephalic and atraumatic. Mouth/Throat: Mucous membranes are moist. Cardiovascular: Normal rate and regular rhythm. No murmur heard.Capillary refill: takes less than 3 seconds, No lower extremity edema Pulmonary/Chest: Effort normal and breath sounds normal. Abdominal: Soft. Bowel sounds are normal. There is abdominal tenderness (suprapubic). No CVA tenderness Musculoskeletal: Comments: 4/5 strength bilaterally in lower extremities. She has quadriceps pain and cramping with passive and active leg raise. Her burning symptoms are not evoked with straight leg raise. Neurological: Alert and oriented to person, place, and time. Skin: Skin is warm and dry. Psychiatric: Anxious ASSESSMENT/PLAN Patient presents with symptoms of burning pain shooting down bilateral lower extremities, but without sensory or motor dysfunction or increasing weakness. She did have an MRI in February 2020 which showed diffuse disc bulging and mild narrowing of the spinal canal at L3-L4 and diffuse disc bulging without narrowing of the spinal canal but with mild narrowing of the right neural foramen at L5-S1. It iscertainly possible that her lumbar disc bulging is contributing to her symptoms. Lumbar spine x-ray shows no acute fractures. As she is not having saddle paresthesias, fecal incontinence, urinary retention, I am less suspicious for cauda equina syndrome. She is not immunocompromised, does not use IV drugs, has been afebrile, and does not have a leukocytosis so I am less concerned for an epidural abscess. CT abdomen pelvis was obtained given her reported history of rectocele repair and suprapubic abdominal pain. It did show a distended bladder and patient states she had to urinate immediately following with a large urine void. CT scan showed nonspecific perineal/labral soft tissue thickening without obvious rectocele and did not show other findings that might be contributing to her symptoms. CT did demonstrate a large amount of stool in her colon. I recommended to the patient that she increase her Miralax dosing to 1 capful three times daily until she is having regular soft formed stools 1-2 times daily, at which point she should decrease this dosage again to once daily. Sodium is 125 today in the emergency department. Possibly, this is contributing to some of her symptoms of lower extremity pain but likely does not explain the pelvic burning and burning pains that sheis experiencing. With a urine osmolality of 120, and her report that she drinks plenty of water and has previously been told she has low sodium, I think it is likely that this hyponatremia is due to a decreased intake of salt and generous consumption of free water. She would benefit from increasing her salt consumption and decreasing her free water consumption. Her laboratory analysis was otherwise reassuring. Her potassium, magnesium, creatinine are reassuring. She does not have a leukocytosis nor anemia. Her urinalysis is notable for small blood, but does not reveal a urinary tract infection. I discussed pertinent positive findings and recommendations with the patient as well as reassuring nature of her examination. I encouraged her to call tomorrow to schedule an appointment with her primary care provider for further management and evaluation of these symptoms. I also recommended she consider adjusting the timing of her evening Ativan and Tylenol as this does seem to relieve her symptomsto just prior to bed so that she might have relief for longer periods of time. Return precautions including fevers, chills, decreased ability to walk, saddle anesthesias discussed with the patient. Sheexpresses understanding and agreement with this plan and is amenable to discharge at this time. ED Course as of Nov 20 2252 Yeimi Nov 20, [id number] No acute fractures or findings identified DX Lumbar Spine 2-3 Views 1953 Patient notes she has previously been told her sodium is low Sodium, P(!): 125 2130 Large amount of stool in colon. Nonspecific perineal soft tissue thickening without obvious rectocele. CT Abdomen Pelvis with IV Contrast Final Diagnoses: as of Nov 20 2252 Hyponatremia Pain Pelvic Female Pain Leg Bilateral Cristine Hill MPAS, P.A.-C. 11/20/20 0364 Brianna Bashir R.N. - 11/20/2020 1:39 PM CDT Patient presents with burning pain in her pelvis, legs and feet x3 months. Last night this worsened. Brianna Bashir R.N. 11/20/20 1339 documented in this encounter Plan of Treatment Not on filedocumented as of this encounter Procedures Procedure Name Priority Date/Time Associated Comments Diagnosis CT ABDOMEN PELVIS RAD - Semiurgent 11/20/2020 8:11 Res ults for this WITH IV CONTRAST (Fast; most ED PM CDT procedure are in patients; some the results inpatients) section. DIPSTICK, U STAT 11/20/2020 8:05 Results for this PM CDT procedure are i n the results section. MICROSCOPIC STAT 11/20/2020 8:05 Results for this AUTOMATED PM CDT procedure are i n the results section. PH, U STAT 11/20/2020 8:05 Results for this PM CDT procedure are i n the results section. OSMOLALITY, U STAT 11/20/2020 8:05 Results for this PM CDT procedure are i n the results section. URINALYSIS WITH STAT 11/20/2020 8:05 Results f or this MICROSCOPIC PM CDT procedure are i n the results section. DX LUMBAR SPINE 2-3 RAD - Semiurgent 11/20/2020 6:52 R esults for this VIEWS (Fast; most ED PM CDT procedure are in patients; some the results inpatients) section. HC URINALYSIS AUTO Routine 11/20/2020 6:46 Result s for this WO MICRO PM CDT procedure are i n the results section. BACTERIAL CULTURE, STAT 11/20/2020 6:38 Result s for this AEROBIC + SUSC, PM CDT procedure ar e in URINE the results section. CBC WITH STAT 11/20/2020 5:58 Results for this DIFFERENTIAL, B PM CDT procedure ar e in the results section. MAGNESIUM, S STAT 11/20/2020 5:58 Results for this PM CDT procedure are i n the results section. BASIC METABOLIC STAT 11/20/2020 5:58 Results f or this PANEL, S/P PM CDT procedure are i n the results section. documented in this encounter Results CT Abdomen Pelvis with IV Contrast (11/20/2020 8:11 PM CDT) Anatomical Region Laterality Modality Abdomen, Pelvis, Abdominal RST LOS, N/A Comp uted Tomography, Computed Abdominal ARZ LOS, Abdominal FLA LOS Blaze ography Specimen (Source) Anatomical Collection Method Collection Time Re ceived Time Location / / Volume Laterality 11/20/2020 8:49 PM CDT Impressions 11/20/2020 9:26 PM CDT Perineal soft tissue thickening without an obvious rectocele. Consider correlation with direct examina tion or nonemergent pelvic MRI for further evaluation if clinically warrant ed. Narrative 11/20/2020 9:26 PM CDT EXAM: ??CT ABDOMEN PELVIS WITH IV CONTRAST COMPARISON: ??Outside CT ABDOMEN/PELVIS 11/30/2011 FINDINGS: ?? Nonspecific perineal/labial soft tissue thickening (series 5/60) without an obvious rectocele. Splenic cyst or hemangioma. Bilateral co rtical renal cysts. Distended bladder. Hysterectomy. Aortobiiliac calcification s. Ventral hernia repair. Interval resoluti on of right anterior abdominal fluid collection. Large amount of stool in the colon. No evidence of bowel obstruction. Osteopenia. Degenerative ch rishabh thoracolumbar spine. Right lower lobe calcified granuloma. Procedure Note Rajesh Martin M.B.B.S., MBabak. - EXAM: CT ABDOMEN PELVIS WITH IV CONTRAST COMPARISON: Outside CT ABDOMEN/PELVIS FINDINGS: Nonspecific perineal/labial soft tissue thickening (series 5/60) without an obvious rectocele. Splenic cyst or hemangioma. Bilateral co rtical renal cysts. Distended bladder. Hysterectomy. Aortobiiliac calcification s. Ventral hernia repair. Interval resoluti on of right anterior abdominal fluid collection. Large amount of stool in the colon. No evidence of bowel obstruction. Osteopenia. Degenerative ch rishabh thoracolumbar spine. Right lower lobe calcified granuloma. IMPRESSION: Perineal soft tissue thickening without an obvious rectocele. Consider correlation with direct examina tion or nonemergent pelvic MRI for further evaluation if clinically warrant ed. Cristine Hill P.A.-C., M.S. IMG CT PROCEDURES (ABNORMAL) Osmolality, Urine (11/20/2020 8:05 PM CDT) athologist Signature Osmolality, U 120 (L) 150 - 1150 11/20/2020 DTL mOsm/kg 8:59 PM CDT Specimen Anatomical Collection Method Collection Time Receive d Time (Source) Location / / Volume Laterality Urine 11/20/2020 8:05 PM 1 8:06 CDT PM CDT Cristine Hill P.A.-C., M.S. LAB URINE ORDERABLES Performing Organization Address City/[facility]/ZIP [facility] Phon e Number [facility] - [address] [place] [address] [place] [address] pH, Urine (11/20/2020 8:05 PM CDT) athologist Signature pH, U 6.6 4.5 - 8.0 11/20/2020 8:59 DTL PM CDT Specimen Anatomical Collection Method Collection Time Receive d Time (Source) Location / / Volume Laterality Urine 11/20/2020 8:05 PM 1 8:06 CDT PM CDT Cristine Hill P.A.-C., M.S. LAB URINE ORDERABLES Performing Organization Address City/State/[facility] Phon e Number [facility] - [address] [place] [address] [place] [id number] [facility] [address] [facility] Microscopic Automated (11/20/2020 8:05 PM CDT) athologist Signature Microscopy Normal 11/20/2020 8:27 DTL PM CDT Specimen Anatomical Collection Method Collection Time Receive d Time (Source) Location / / Volume Laterality Urine 11/20/2020 8:05 PM 8:06 CDT PM CDT Cristine Hill P.A.-C., M.S. LAB URINE ORDERABLES Performing Organization Address City/[facility] Code Phon e Number [facility] - [address] [place], [place] [address] [place] [address] (ABNORMAL) Dipstick, Urine (11/20/2020 8:05 PM CDT) [employer] Method Time Signature Hemoglobin, Small (A) Negative 11/20/2020 DTL QL 8:27 PM CDT Leukocyte Negative Negative 11/20/2020 DTL Esterase, U 8:27 PM CDT Nitrite, U Negative Negative 11/20/2020 DTL 8:27 PM CDT Ketones, U Negative Negative 11/20/2020 DTL mg/dL 8:27 PM CDT Glucose, U Negative Negative 11/20/2020 DTL mg/dL 8:27 PM CDT Specimen Anatomical Collection Method Collection Time Receive d Time (Source) Location / / Volume Laterality Urine 11/20/2020 8:05 PM 8:06 CDT PM CDT Cristine Hill P.A.-C., M.S. LAB URINE ORDERABLES Performing Organization Address City/[facility] Code Phon e Number [facility] - [address] [place], [place] [address] [place], [place] [id number] [place] [address] Urinalysis with Microscopic: Urine, Midstream (11/20/2020 8:05 PM CDT) [employer] Method Time Signature Source Urine, Urine, 11/20/2020 DTL Midstream 8:05 PM CDT Color, U Yellow 11/20/2020 DTL 8:06 PM CDT Clarity, U Clear 11/20/2020 DTL 8:06 PM CDT Protein, U 4 <26 mg/dL 11/20/2020 DTL 8:47 PM CDT Protein/Osmol 0.33 <0.42 11/20/2020 DTL ality ratio 8:59 PM CDT Predicted 24 247 mg/24 h 11/20/2020 DTL Hr Protein 8:59 PM CDT Predicted 61-999 mg/24 h 11/20/2020 DTL Range 8:59 PM CDT Specimen Anatomical Collection Method Collection Time Receive d Time (Source) Location / / Volume Laterality Urine (Urine, 11/20/2020 8:05 PM 11/21/19 21 8:05 Midstream) CDT PM CDT Cristine Hill P.A.-C., M.S. LAB URINE ORDERABLES Performing Organization Address City/State/ZIP Code Phon e Number [facility] - [address] [place], [place] [address] [facility] [place] [address] Laboratories-[facility] [address] DX Lumbar Spine 2-3 Views (11/20/2020 6:52 PM CDT) Anatomical Region Laterality Modality Lumbar Spine, Musculoskeletal RST LOS, Neuroradiology N/A Digital Radiography ARZ LOS, Muskuloskeletal FLA LOS Specimen (Source) Anatomical Collection Method Collection Time Re ceived Time Location / / Volume Laterality 11/20/2020 6:55 PM CDT Impressions 11/20/2020 7:50 PM CDT Demineralization. No fracture identified. Degenerative changes greatest in the lower lumbar spine with facet hypertrophy. Dextroconvex lumbar curve. Narrative 11/20/2020 7:50 PM CDT EXAM: ??DX LUMBAR SPINE 2-3 VIEWS Procedure Note Rajesh Martin M.B.B.S., MBabak. - EXAM: DX LUMBAR SPINE 2-3 VIEWS IMPRESSION: Demineralization. No fracture identified . Degenerative changes greatest in the lower lumbar spine with facet hypertrophy. Dextroconvex lumbar curve. Cristine Hill P.A.-C., M.S. IMG DIAGNOSTIC IMAGING PROCEDURES (ABNORMAL) Dipstick, POCT, Urine (11/20/2020 6:46 PM CDT) [facility] Method Time Signature Glucose, Negative Negative 11/20/2020 PC[facility] POCT, U mg/dL 6:48 PM CDT Ketone, POCT, Negative Negative 11/20/2020 [facility] U mg/dL 6:48 PM CDT Specific 1.010 1.005 - 11/20/2020 [facility] [place], 1.030 6:48 PM CDT POCT, U Blood, POCT, Small (A) Negative 11/20/2020 [facility] U 6:48 PM CDT pH, POCT, 6.5 5.0 - 8.0 11/20/2020 [facility] Urine 6:48 PM CDT Protein, Negative Negative 11/20/2020 [facility] POCT, U mg/dL 6:48 PM CDT Nitrites, Negative Negative 11/20/2020 [facility] POCT, U 6:48 PM CDT Leukocytes, Negative Negative 11/20/2020 [facility] POCT, U 6:48 PM CDT Specimen Anatomical Collection Method Collection Time Receive d Time (Source) Location / / Volume Laterality Urine 11/20/2020 6:46 PM 6:49 CDT PM CDT Unknown Provider LAB POCT ORDERABLES - DEVICE Performing Organization Address City/State/ZIP Code Phon e Number POC RST [facility] [address] [place] [address] OUTPATIENT [place] [address] [facility] [address] [facility] Bacterial Culture, Aerobic + Susc, Urine (11/20/2020 6:38 PM CDT) Patholo gist Method Time Signature Urine Culture No growth 11/22/2020 DT after 1 day 6:44 AM CDT of incubation. Specimen Anatomical Collection Method Collection Time Receive d Time (Source) Location / / Volume Laterality Urine (Urine, 11/20/2020 6:38 PM 11/21/19 21 8:22 Midstream) CDT PM CDT Comment: Specimen Source Site: Urine Cristine Hill P.A.-C., M.S. LAB MICROBIOLOGY - GENE RAL ORDERABLES Performing Organization Address City/State/ZIP Code Phon e Number [facility] - [address] [place], [place] [address] [place] [place] [address] [facility] [address] [facility] Magnesium (11/20/2020 5:58 PM CDT) P athologist Signature Magnesium, S 2.0 1.7 - 2.3 11/20/2020 DTL mg/dL 6:32 PM CDT Specimen Anatomical Collection Method Collection Time Receive d Time (Source) Location / / Volume Laterality Blood (Blood, 11/20/2020 5:58 PM 11/21/19 6:21 Venous) CDT PM CDT Cristine Hill P.A.-C., M.S. LAB BLOOD ADD-ON Performing Organization Address City/State/ZIP Code Phon e Number [facility] - [address] [place], [place] [address] [facility] [place] [address] [facility] [address] (ABNORMAL) Basic Metabolic Panel (11/20/2020 5:58 PM CDT) athologist Signature Potassium, P 4.2 3.6 - 5.2 11/20/2020 [facility] mmol/L 6:18 PM CDT Sodium, P 125 (L) 135 - 145 11/20/2020 [facility] mmol/L 6:18 PM CDT Chloride, P 90 (L) 98 - 107 11/20/2020 [facility] mmol/L 6:18 PM CDT Bicarbonate, P 27 22 - 29 11/20/2020 [facility] mmol/L 6:18 PM CDT Anion Gap, P 8 7 - 15 11/20/2020 [facility] 6:18 PM CDT BUN (Blood Urea 12 6 - 21 11/20/2020 [facility] Nitrogen), P mg/dL 6:18 PM CDT Creatinine 0.72 0.59 - 11/20/2020 [facility] 1.04 mg/dL 6:18 PM CDT eGFR-Black/Afri 90 >=60 11/20/2020 [facility] can Macanese mL/min/BSA 6:18 PM CDT Comment: ----ADDITIONAL INFORMATION---- Estimated GFR calculated using the 2009 CKD_EPI creatinine equation. eGFR Non-Black/ 78 >=60 mL/min/BSA 6:18 PM CDT [facility] Comment: ----ADDITIONAL INFORMATION---- Estimated GFR calculated using the 2009 CKD_EPI creatinine equation. Calcium, Total, P 10.4 (H) 8.8 - 10.2 mg/dL 11/20/2020 6:18 PM CDT [facility] Glucose, P 97 70 - 140 mg/dL 11/20/2020 6:18 PM CDT S TMA Specimen Anatomical Collection Method Collection Time Receive d Time (Source) Location / / Volume Laterality Blood (Blood, 11/20/2020 5:58 PM 11/21/19 6:02 Venous) CDT PM CDT Cristine Hill P.A.-C., M.SGrazyna LAB BLOOD ADD-ON Performing Organization Address City/State/ZIP Code Phon e Number [facility] - [address] [place], [place] [address] [facility] [place] [address] [facility] [address] [facility] (ABNORMAL) CBC with Differential, Blood (11/20/2020 5:58 PM CDT) [facility] Method Time Signature Hemoglobin 12.6 11.6 - 11/20/2020 STMA 15.0 g/dL 6:04 PM CDT Hematocrit 35.8 35.5 - 11/20/2020 STMA 44.9 % 6:04 PM CDT Erythrocytes 3.81 (L) 3.92 - 11/20/2020 STMA 5.13 6:04 PM CDT x10(12)/L MCV 94.0 78.2 - 11/20/2020 STMA 97.9 fL 6:04 PM CDT RBC Distrib Width 11.7 (L) 12.2 - 11/20/2020 STMA 16.1 % 6:04 PM CDT Platelet Count 242 157 - 371 11/20/2020 STMA x10(9)/L 6:04 PM CDT Leukocytes 4.4 3.4 - 9.6 11/20/2020 STMA x10(9)/L 6:04 PM CDT Neutrophils 2.86 1.56 - 11/20/2020 STMA 6.45 6:04 PM CDT x10(9)/L Lymphocytes 1.05 0.95 - 11/20/2020 STMA 3.07 6:04 PM CDT x10(9)/L Monocytes 0.37 0.26 - 11/20/2020 STMA 0.81 6:04 PM CDT x10(9)/L Eosinophils 0.10 0.03 - 11/20/2020 STMA 0.48 6:04 PM CDT x10(9)/L Basophils <0.03 0.01 - 11/20/2020 STMA 0.08 6:04 PM CDT x10(9)/L Specimen Anatomical Collection Method Collection Time Receive d Time (Source) Location / / Volume Laterality Blood (Blood, 11/20/2020 5:58 PM 11/21/19 6:02 Venous) CDT PM CDT Cristine Hill P.A.-C., M.S. LAB BLOOD ADD-ON Performing Organization Address City/State/ZIP Code Phon e Number [facility] - [address] [place], [place] [address] [place] [address] Laboratories-[facility] [address] documented in this encounter Visit Diagnoses Diagnosis Hyponatremia - Primary Pain Pelvic Female Pain Leg Bilateral documented in this encounter Administered Medications Inactive Administered Medications - up to 3 most recent administrations Medication Order MAR Action Action Date Dose Rate Site acetaminophen tablet 1,000 mg Given 11/20/2020 8:44 PM CDT 1,000 mg (TYLENOL) 1,000 mg, oral, Once, On [place] 11/20/20 at 203, For 1 dose iohexoL 300 mg iodine/mL solution 1-200 mL Given 11/20/2020 8:05 PM CDT 100 mL (OMNIPAQUE) 1-200 mL, intravenous, Once in imaging, contrast, Starting on Yeimi 11/20/20 at 2004, For 1 dose, Imaging Protocol Orders, Dose per Radiant Medication Guidelines LORazepam tablet 1 mg (ATIVAN) Given 11/20/2020 7:27 PM CDT 1 mg 1 mg, oral, Once, On Yeimi 11/20/20 at 1922, For 1 dose sodium chloride (PF) 0.9 % injection 1-1 00 mL Given 11/20/2020 8:05 PM CDT 50 mL 1-100 mL, intravenous, Once, On Yeimi 11/20/20 at 2005, For 1 dose, Imaging Protocol Orders documented in this encounter Active and Recently Administered Medications Times are shown in CDT. Scheduled Medication Order 11/18/2020 11/19/2020 11/20/2020 acetaminophen tablet 1,000 mg (TYLENOL) (COMPLETED) 2043 (Given - Provider: Laz Rios R.N.) 1,000 mg, oral, Once, On Yeimi 11/20/20 at 2038, For 1 dose LORazepam tablet 1 mg (ATIVAN) (COMPLETED) 1926 (Given - Provider: Marlyn Ortega R.N.) 1 mg, oral, Once, On Ye[place] 11/20/20 at 1921, For 1 dose sodium chloride (PF) 0.9 % injection 1-100 mL (COMPLETED) 2004 (Given - Provider: Derrick Almeida R.N.) 1-100 mL, intravenous, Once, On Yeimi 11/20 at 2004, For 1 dose, Imaging Protocol Orders PRN Medication Order 11/18/2020 11/19/2020 11/20/2020 iohexoL 300 mg iodine/mL solution 1-200 mL (OMNIPAQUE) (COMPLETE D) 2004 (Given - Provider: Derrick Almeida R.N.) 1-200 mL, intravenous, Once in imaging, contrast, Starting on Yeimi 11/20/20 at 2004, For 1 dose, Imaging Protocol Orders, Dose per Radiant Medication Guidelines documented in this encounter Care Teams Harness Mender Relationship Specialty Start Date End Date Elsewhere, Pcp PCP - General Family Medicine 11/20/20 documented as of this encounter
--- OUTSIDE RECORDS SUMMARY | 2022-03-23 04:16 | XMS_ITS | Encounter Summary ---
:1935 Author Organization [facility] Address [address] [place] [address] Care Team Providers Name Role Phone Unavailable Primary Care Provider Unavailable Reason for Visit Reason Onset Date Comments Communication 10/16/2018 Encounter Details Date Type Department Care Team Description 10/16/2018 Clinical Communication Department of Sarai Sauer, Communication Obstetrics and P.A.-C. Gynecology in [address] [place] [address] [place] [id number] [place], [place] [phone] (Work) [phone] Social History Tobacco Use Types Packs/Day Years Used Date Smoking Tobacco: Unknown Sex Assigned at Date Recorded Not on file documented as of this encounter Miscellaneous Notes Telephone Encounter - Sarai Sauer P.A.-C. - 10/17/2018 12:08 PM CDT I will see her for a UROG consultation to evaluate further. Orders placed. Telephone Encounter - Estrellita Up - 10/16/2018 2:25 PM CDT Patient calls with concerns regarding her rectocele stating she is having more issues with it being very painful. She also discovered a new hernia on her right side. She is unsure what needs to be done. documented in this encounter Plan of Treatment Not on filedocumented as of this encounter Visit Diagnoses Diagnosis Pain Suprapubic - Primary documented in this encounter
--- OUTSIDE RECORDS SUMMARY | 2022-03-23 04:17 | XMS_ITS | Encounter Summary ---
:1935 Author Organization [facility] Address [address] [place] [address] Care Team Providers Name Role Phone Unavailable Primary Care Provider Unavailable Encounter Details Date Type Department Care Team Description 09/03/1998 - 09/05/1998 Hospital Encounter HX RST ANDREA CAMPOS 5D Social History Tobacco Use Types Packs/Day Years Used Date Smoking Tobacco: Never Assessed Sex Assigned at Date Recorded Not on file documented as of this encounter Plan of Treatment Not on filedocumented as of this encounter Procedures Procedure Name Priority Date/Time Associated Diagnosis Comme nts DX ABDOMEN 1 VIEW Routine 09/03/1998 4:40 PM Resu lts for this CDT procedure are i n the results section. documented in this encounter Results DX Abdomen 1 View (09/03/1998 4:40 PM CDT) Anatomical Region Laterality Modality Abdomen N/A Radiographic Imaging Specimen (Source) Anatomical Collection Method Collection Time Re ceived Time Location / / Volume Laterality 09/03/1998 4:40 PM CDT Narrative 09/04/1998 2:22 PM CDT 03-Sep-1998 16:40:00 ??Exam: Post OP Abdomen Indications: post op urethrolysis ?? pel vis x-ray ORIGINAL REPORT - 04-Sep-1998 14:22:00 Negative for PO purposes. Electronically signed by: ?? Lottie ??Shimon CERRATO ?? [phone] 04-Sep-1998 1 4:22 Procedure Note Josh Robins M.D. - 08/15/2017Formatti ng of this note might be different from the original. 03-Sep-1998 16:40:00 Exam: Post OP Abdom en Indications: post op urethrolysis pelvis x-ray ORIGINAL REPORT - 04-Sep-1998 14:22:00 Negative for PO purposes. Electronically signed by: Lottie Robins MD. [phone] 04-Sep-1998 14:22 [facility] IMAG[facility] PROCE DURES documented in this encounter Visit Diagnoses Not on filedocumented in this encounter
--- OUTSIDE RECORDS SUMMARY | 2022-03-23 04:17 | XMS_ITS | Encounter Summary ---
:1935 Author Organization [facility] Address [address] [place] [address] Care Team Providers Name Role Phone Unavailable Primary Care Provider Unavailable Encounter Details Date Type Department Care Team Description 06/19/2013 Hospital Encounter HX NO MAPPING Social History Tobacco Use Types Packs/Day Years Used Date Smoking Tobacco: Never Assessed Sex Assigned at Date Recorded Not on file documented as of this encounter Last Filed Vital Signs Vital Sign Reading Time Taken Comments Blood Pressure 126/62 06/19/2013 12:16 PM BODY CLEANER Pulse - - Temperature - - Respiratory Rate 16 06/19/2013 12:16 PM BODY CLEANER Oxygen Saturation - - Inhaled Oxygen Concentration - - Weight - - Height - - Body Mass Index - - documented in this encounter Medications at Time of Discharge Medication Sig Dispensed Refills Start Date End Date lisinopriL Take 1 tablet by 0 06/18/2013 (PRINIVIL,ZESTRIL) 40 mg mouth at bedtime. tablet multivitamin tablet Take 1 tablet by 0 03/06/2012 mouth daily. omeprazole (PriLOSEC) 20 Take 1 capsule by 0 06/[address] capsule mouth every morning. polyethylene glycol Take 1 Dose by mouth 0 2013 (MIRALAX) 17 gram/dose daily as needed. 1/2- oral powder 1 capful as needed documented as of this encounter Plan of Treatment Not on filedocumented as of this encounter Visit Diagnoses Not on filedocumented in this encounter
--- OUTSIDE RECORDS SUMMARY | 2022-03-23 04:17 | XMS_ITS | Encounter Summary ---
:1935 Author Organization [facility] Address [address] [place] [address] Care Team Providers Name Role Phone Elsewhere, Pcp Primary Care Provider Unavailable Encounter Details Date Type Department Care Team Description 06/18/2013 Historical Ophthalmology RST OPH Wayne Mina M.D. Social History Tobacco Use Types Packs/Day Years Used Date Smoking Tobacco: Never Assessed Sex Assigned at Date Recorded Not on file documented as of this encounter Progress Notes Wayne Mina M.D. 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 Double vision, constant, double image is up and to the right, shutting one eye the vision is single, generally closes right eye. Frequent headaches. LK- in the prism glasses vision is single. Will rarely see double (only when very tired). No problems reading or driving. Prism glasses are starting to get heavy on the nose- time for surgery. 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 need candidate for BMR rec w LSR rec - pt now wants GA rather than topical ext disc 80/20 reops #2 vertigo no ocular cause - less now #3 mild dry armd following w amsler #4 anxiety under care from gen RAMIREZ - she relates depressive sympt to multile surg and husbands illness - encouraged to talk to own MD about this DIAGNOSIS #1 divergence insufficency ET #2 vertigo #3 mild dry armd #4 anxiety CDM Reports - EYEGEN Id: [id number] Status: Fnl documented in this encounter Plan of Treatment Not on filedocumented as of this encounter Visit Diagnoses Not on filedocumented in this encounter Care Teams Timing Machine Operator Relationship Specialty Start Date End Date Elsewhere, Pcp PCP - General Family Medicine 11/20/20 documented as of this encounter
--- OUTSIDE RECORDS SUMMARY | 2022-03-23 04:17 | XMS_ITS | Encounter Summary ---
:[address] [facility] Address [address] [place] [address] Care Team Providers Name Role Phone Elsewhere, Pcp Primary Care Provider Unavailable Encounter Details Date Type Department Care Team Description 09/02/2011 Historical Ophthalmology RST OPH Wayne Mina M.D. Social History Tobacco Use Types Packs/Day Years Used Date Smoking Tobacco: Never Assessed Sex Assigned at Date Recorded Not on file documented as of this encounter Progress Notes Wayne Mina M.D. - 09/02/2011 1:59 PM CDT Eye General CHIEF COMPLAINT Follow up on esotropia HISTORY OF PRESENT ILLNESS This is a 76 year old female here for follow up on esotropia. This patient also has left hypertropia, right ocular pain, and dry armd. Patient continues to have double with one image side by the side the other. She does not read a lot because she gets eye strain and her eyes get teary. Patient is unsure if the pain is in or behind her right eye, she feels it when she goes to bed; on and off; x1 year.She gets stress headaches but attributes these to other health concerns. 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 - already on an asa a day today see need mpor MIKE prism - update to above #3 R ocular pain may be rel to strain to fuse may be form fruste of Graves given throid HX - will monitor - see 1 year - call if worse #4 dry armd monitor w farrukh - normal R and L today DIAGNOSIS #1 esotropia #2 left hypertropia #3 R ocular pain #4 dry armd CDM Reports - EYEGEN Id: [id number] Status: Fnl documented in this encounter Plan of Treatment Not on filedocumented as of this encounter Visit Diagnoses Not on filedocumented in this encounter Care Teams Patient Biller Relationship Specialty Start Date End Date Elsewhere, Pcp PCP - General Family Medicine 11/20/20 documented as of this encounter
--- OUTSIDE RECORDS SUMMARY | 2022-03-23 04:17 | XMS_ITS | Clinical Summary ---
:1935 Author Organization [facility] [place] [address] Care Team Providers Name Role Phone Daisy Carpenter DO Primary Care Provider Allergies Active Allergy Reactions Severity Noted Date Comments Adhesive Other - Describe 02/13/2010 Rash In Comment Field Cephalexin Itching 02/04/2020 Ciprofloxacin Other - Describe 06/28/2020 In Comment Field Cyclobenzaprine Itching, 03/17/2010 Diarrhea/harsh sea Dizziness, GI Upset Doxycycline Intolerance-Can't 04/22/2020 Take Hydrochlorothiazide Other - Describe 01/07/2011 Hypo natremia (119). In Comment Field Hyoscyamine Urinary Retention 05/29/2010 Labetalol Other - Describe 05/27/2011 dizzy In Comment Field Atorvastatin Other - Describe 03/07/2014 Leg pain In Comment Field Mirtazapine Other - Describe 09/22/2016 Mouth and t ongue In Comment Field 'swollen'. Sulfa (Sulfonamide Hives Antibiotics) Tramadol Other - Describe 09/24/2015 Leg cramps. In Comment Field Trazodone Other - Describe 02/11/2009 Tinnitus an d In Comment Field increased i nsomnia Medications Medication Sig Dispensed Refills Start End Date Status Date aspirin 81 mg tablet Take 1 tablet 0 Active by mouth once 1 daily with a meal. multivitamin (MVI) Take 1 tablet 0 Active tablet by mouth once 2 daily. magnesium citrate Take 1 Tab by 0 Active 100 mg tab mouth at 8 bedtime. polyethylene glycoL 17g daily. 0 Active (MIRALAX) 17 9 gram/dose powder fexofenadine 0 Active (ROSALVA ALLERGY) 9 180 mg tablet vit C/E/zinc 0 Active ox/lory/lut/zeax 9 (ICAPS AREDS2 ORAL) Walker - 4 For home use. 1 Device 0 Activ e wheelsIndications: Length of 1 Lumbar degenerative need: 99 disc disease, Other months Patient drug-induced has particular secondary request for parkinsonism (HC) light weight with 4 wheels. cranberry fruit Chew 1 Capsule 0 Active concentrate (Azo by mouth once 1 Cranberry) 250 mg daily. chewIndications: Recurrent UTI tamsulosin (FLOMAX) Take 1 Capsule 90 Capsule 3 Active 0.4 mg (0.4 mg) by 1 capsuleIndications: mouth once Incomplete bladder daily after a emptying meal. amLODIPine (NORVASC) Take 1 Tablet 90 tablet. 3 Active 2.5 mg (2.5 mg) by 1 tabletIndications: mouth once Essential daily. hypertension levothyroxine Take 1 Tablet 90 tablet. 3 A ctive (SYNTHROID) 50 mcg (50 mcg) by 1 tabletIndications: mouth before Other specified breakfast. hypothyroidism omeprazole TAKE 1 CAPSULE 90 capsule. 4 Ac tive (PRILOSEC) 40 mg BY MOUTH EVERY 1 Delayed-Release DAY BEFORE A capsuleIndications: MEAL. DO NOT Gastroesophageal CRUSH OR CHEW reflux disease without esophagitis ketotifen (ZADITOR) Use 1 drop in 10 mL 3 Active 0.025 % (0.035 %) affected 1 ophthalmic eye/eyes as solutionIndications: needed twice Allergic daily. conjunctivitis and rhinitis, right LORazepam (ATIVAN) 1 TAKE 1 TABLET 180 Tablet 1 Active mg (1 MG) BY 2 tabletIndications: MOUTH 2 TIMES Insomnia, DAILY. unspecified type lisinopriL TAKE 1 TABLET 30 Tablet 0 Activ e (PRINIVIL; ZESTRIL) (40 MG) BY 2 40 mg MOUTH ONCE tabletIndications: DAILY. Essential hypertension gabapentin TAKE ONE 360 Capsule 0 Active (NEURONTIN) 300 mg CAPSULE BY 2 capsuleIndications: MOUTH EVERY Neurodermatitis MORNING THEN 2 CAPSULES AT AT NOON AND 3 CAPSULES AT BEDTIME gabapentin TAKE 1 CAPSULE 560 capsule. 1 03/17/20 D iscontinued (NEURONTIN) 300 mg BY MOUTH EVERY 1 22 capsuleIndications: MORNING, THEN Neurodermatitis 2 CAPSULE AT NOON, AND 3 CAPSULES AT BEDTIME lisinopriL Take 1 Tablet 90 tablet. 1 03/17/20 Disc ontinued (PRINIVIL; ZESTRIL) (40 mg) by 1 22 40 mg mouth once tabletIndications: daily. 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 Bones scan 2018 benign. 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 Insomnia, unspecified 12/23/2010 Unspecified essential hypertension 12/23/2010 Degeneration of lumbar or lumbosacral intervertebral d isc 07/06/2010 Painful Lumbar Facet Arthropathy 02/19/2010 Unspecified tinnitus 08/16/2008 Temporomandibular joint disorders, unspecified Dermatophytosis of nail Unspecified hypothyroidism Other and unspecified hyperlipidemia Other specified congenital anomalies Overview: left thigh Unspecified hemorrhoids without mention of complicatio n Resolved Problems Problem Noted Date Resolved Date Dizziness and giddiness 04/14/2012 05/19/2016 Hyposmolality and/or hyponatremia 09/16/20112016 Disturbance of skin sensation 02/17/2011 05/19/2016 Routine general medical examination at a [facility] 008 05/19/2016 facility Overview: Lipids - 10/28/06 - cholesterol 134, LDL - 59, TG - 85 Dexa- none found mammo-10/17/07 Colon - 12/04/04 - h/o colon polyp, mild diverticulosis, next due 2009 Pap/pelvic -03/17/01 - nl Thyroid- 10/28/06 - 0.62 Hep B-none found Pneumovax - 10/26/05 Tetanus-10/26/05 Diabetic-no Encounters Date Type Specialty Care Team Description 03/15/2022 Refill Detert, Daisy Pereyra, Refil l Request (Lisinopril, Gabapentin) from Last 3 Months Immunizations Name Administration Dates Next Due AMB Influenza, IIV3 (Age >=3 years) 02/15/2012, 02/24/2011 Preserve Free (Flu Clinic Only) AMB Influenza, IIV3 (Age >=3 03/29/2008 years)(Flu Clinic Only) AMB Influenza, IIV4 PF (=>6 mos 03/05/2015 Flulaval,Fluzone Fluarix)(Flu Clinic Only) COVID-19 vaccine (Moderna 06/18/2020, 05/21/2020 100mcg/0.5mL) PF, MDV COVID-19 vaccine (Moderna Booster 03/30/2021 50mcg/0.25mL) PF, MDV DT (Age < 7 years) 10/26/2005 Influenza A (H1N1), Inactivated (Age 1204/28/2009 6-35 Mos) Influenza, High-dose Inactivated 02/14/2020, 02/08/2019, 07/2018, 02/15/2018, 02/11/2017, 02/04/2016, 01/14/2014, 01/29/2013 Influenza, High-dose Quadrivalent 02/23/2021 Inactivated Influenza, IIV3 (Age >=3 years) 01/19/2010, 01/19/2009, 02/08, 02/24/2005, 02/24/2004 Influenza, Inactivated IIV3 (Age 65+ 02/09/2018 Years) Preserv Free Pneumococcal Poly,23-Valent 03/09/2008, 10/26/2005 (Pneumovax) Pneumococcal conj 13-Valent (Prevnar 05/22/2015 13) Td, Preservative Free (age >= 7 10/26/2005 Years) Tdap 05/04/2012, 09/06/2007 Zoster (Shingrix-RZV, recombinant) 02/28/2019, 12/27/2018 Zoster (Zostavax-ZVL, live) 02/28/2009 Family History Medical History Relation Name Comments Anesthesia Problem Neg. Cancer-breast Paternal Aunt Cancer-breast Sister Stroke Sister Relation Name Status Comments Neg. Paternal Aunt Sister Social History Tobacco Use Types Packs/Day Years Used Date Former Smoker Cigarettes 1954 - 987 Smokeless Tobacco: Never Used Tobacco Cessation: Counseling Given: Yes Alcohol Use Standard Drinks/Week Comments No 0 (1 standard drink = 0.6 oz pure alcoho l) Sex Assigned at Date Recorded Not on file Obstetrics History Para Term AB IAB SAB Ectopic Multiple Living Live Births 2 2 2 Date Outcome GA Total Labor/2nd/3rd Weight Sex Delivery Anes PTL Dara A 1 A5 Name Clin Labor Term Term Last Filed Vital Signs Vital Sign Reading Time Taken Comments Blood Pressure 122/67 11/25/2021 3:24 PM CDT Pulse 75 11/25/2021 3:24 PM CDT Temperature 36.7 ??C (98 ??F) 06/01/2021 10:48 AM EXPLOSIVE SPECIALIST Respiratory Rate 20 05/28/2020 10:27 AM EXPLOSIVE SPECIALIST Oxygen Saturation 99% 11/25/2021 3:24 PM CDT Inhaled Oxygen Concentration - - Weight 62.7 kg (138 lb 3.2 oz) 11/25/2021 3:24 PM CDT Height 163.8 cm (5' 4.5) 04/09/2021 8:34 AM EXPLOSIVE SPECIALIST Body Mass Index 23.36 04/09/2021 8:34 AM EXPLOSIVE SPECIALIST Plan of Treatment Health Maintenance Due Date Last Done Comments COVID-19 vaccine series (5 - 12/03/2021 10/08/2021, 021, Booster for Moderna series) 06/18/2020, Addition al history exists Influenza for age 65+ 01/07/2022 02/23/2021, 02/14/2020, 02/08/2019, Additional history exists Medicare Wellness for age 65+ 04/08/2022 04/08/2021, 2019, 11/22/2018, Additional history exists BMI (ht and wt on same day) for 04/09/2022 04/09/2021, 05/2020, age 18+ 01/30/2020, Additional history exists Depression screening for age 12+ 04/10/2022 04/10/2021, 06/2020, 04/08/2021, Additional history exists Tetanus booster 05/04/2022 05/04/2012, 05/04/2012, 09/06/2007, Additional history exists Tdap Completed 05/04/2012, 09/06/2007 Pneumococcal series for age 65+ Completed 05/22/2015, 05/2007, 10/26/2005 DEXA/DXA scan for age 65+ Completed 05/27/2016, 01/18/2013 Zoster (shingles) series for age Completed 02/28/2019, , 50+ 02/28/2009 Results Not on filefrom Last 3 Months Insurance Payer Benefit Plan / Subscriber ID Effective Dates Phone Addre ss Type Group BLUE [employer]OSS [place] BL[employer] [id number] 2016-Present [address] [address] [place], [place] MR PB ONLY [phone] Advance Directives Documents on File Type Date Recorded 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
--- OUTSIDE RECORDS SUMMARY | 2022-03-23 04:17 | XMS_ITS | Encounter Summary ---
:1935 Author Organization [facility] Address [address] [place] [address] Care Team Providers Name Role Phone Elsewhere, Pcp Primary Care Provider Unavailable Encounter Details Date Type Department Care Team Description 06/20/2013 Historical Ophthalmology RST OPH Wayne Mina M.D. Social History Tobacco Use Types Packs/Day Years Used Date Smoking Tobacco: Never Assessed Sex Assigned at Date Recorded Not on file documented as of this encounter Progress Notes Wayne Mina M.D. - 06/20/2013 12:14 PM CST Eye General CHIEF COMPLAINT Post Op HISTORY OF PRESENT ILLNESS 06/19/13 1. Bilateral medial rectus recession of 4 mm with the left on adjustable suture. Recession of the left superior rectus 2 mm on adjustable suture. 78 year old female returns for a one day post op. Pain; left eye; x 1 day; constantly; symptoms reported at level of 7/10. Patient reports her vision is single - D and N - JMH - pain seeems less because declines oxycodone or tramadol IMPRESSION / REPORT / PLAN #1 pod#1 BMR rec and LSR rec for ET HT excellent alignment PF qid 1w then bid 2w then stop polymixin qid 1 w then stop celluvisc qh wa 1 w then wean see Fri get +2.50 ot 2.75 or 3.00 readers DIAGNOSIS #1 pod#1 BMR rec and LSR rec for ET HT CDM Reports - EYEGEN Id: [id number] Status: Fnl documented in this encounter Plan of Treatment Not on filedocumented as of this encounter Visit Diagnoses Not on filedocumented in this encounter Care Teams Sanitary Landfill Supervisor Relationship Specialty Start Date End Date Elsewhere, Pcp PCP - General Family Medicine 11/20/20 documented as of this encounter
--- OUTSIDE RECORDS SUMMARY | 2022-03-23 04:17 | XMS_ITS | Encounter Summary ---
:1935 Author Organization [facility] Address [address] [place] [address] Care Team Providers Name Role Phone Unavailable Primary Care Provider Unavailable Encounter Details Date Type Department Care Team Description 03/29/2011 Hospital Encounter HX NO MAPPING Social History Tobacco Use Types Packs/Day Years Used Date Smoking Tobacco: Never Assessed Sex Assigned at Date Recorded Not on file documented as of this encounter Plan of Treatment Not on filedocumented as of this encounter Visit Diagnoses Not on filedocumented in this encounter
--- OUTSIDE RECORDS SUMMARY | 2022-03-23 04:17 | XMS_ITS | Encounter Summary ---
:1935 Author Organization [facility] Address [address] [place] [address] Care Team Providers Name Role Phone Elsewhere, Pcp Primary Care Provider Unavailable Encounter Details Date Type Department Care Team Description 08/15/2013 Historical Ophthalmology RST OPH Wayne Mina M.D. Social History Tobacco Use Types Packs/Day Years Used Date Smoking Tobacco: Never Assessed Sex Assigned at Date Recorded Not on file documented as of this encounter Progress Notes Wayne Mina M.D. - 08/15/2013 2:15 PM CDT Eye General CHIEF COMPLAINT s/p Bilateral medial rectus recession of 4 mm with the left on adjustable suture. Recession of the left superior rectus 2 mm on adjustable suture. HISTORY OF PRESENT ILLNESS 06/19/13 Bilateral medial rectus recession of 4 mm with the left on adjustable suture. Recession of the left superior rectus 2 mm on adjustable suture. Pain; left eye; x 2 weeks; on and off; symptoms reported at level of 3/10. Patient reports her double vision; off and on. Follow up on phone call 06/29- saw someone local- was told to you the antibiotic for another week [facility] - reports diplopia D and N only rarely - rate 90% improvement IMPRESSION / REPORT / PLAN #1 po 2 mo BMR rec and LSR rec for ET HT excellent alignment pt v happy to be out of prism - rates impr as 90% use celluvisc q2 or refresh plus - if still dry consider pluctal plugs - pt wiould prefer locally see 10 mo DIAGNOSIS #1 po 2 mo BMR rec and LSR rec for ET HT CDM Reports - EYEGEN Id: [id number] Status: Fnl documented in this encounter Plan of Treatment Not on filedocumented as of this encounter Visit Diagnoses Not on filedocumented in this encounter Care Teams Sand Blaster Relationship Specialty Start Date End Date Elsewhere, Pcp PCP - General Family Medicine 11/20/20 documented as of this encounter
--- OUTSIDE RECORDS SUMMARY | 2022-03-23 04:17 | XMS_ITS | Encounter Summary ---
:1935 Author Organization [facility] Address [address] [place] [address] Care Team Providers Name Role Phone Unavailable Primary Care Provider Unavailable Encounter Details Date Type Department Care Team Description 11/14/2008 Hospital Encounter HX NO MAPPING Social History Tobacco Use Types Packs/Day Years Used Date Smoking Tobacco: Never Assessed Sex Assigned at Date Recorded Not on file documented as of this encounter Plan of Treatment Not on filedocumented as of this encounter Visit Diagnoses Not on filedocumented in this encounter
--- OUTSIDE RECORDS SUMMARY | 2022-03-23 04:17 | XMS_ITS | Encounter Summary ---
:1935 Author Organization [facility] Address [address] [place] [address] Care Team Providers Name Role Phone Unavailable Primary Care Provider Unavailable Encounter Details Date Type Department Care Team Description 05/17/2011 Hospital Encounter HX NO MAPPING Social History Tobacco Use Types Packs/Day Years Used Date Smoking Tobacco: Never Assessed Sex Assigned at Date Recorded Not on file documented as of this encounter Plan of Treatment Not on filedocumented as of this encounter Visit Diagnoses Not on filedocumented in this encounter
--- OUTSIDE RECORDS SUMMARY | 2022-03-23 04:17 | XMS_ITS | Encounter Summary ---
:1935 Author Organization [facility] Address [address] [place] [address] Care Team Providers Name Role Phone Elsewhere, Pcp Primary Care Provider Unavailable Encounter Details Date Type Department Care Team Description 05/14/2009 Historical Ophthalmology RST OPH Wayne Mina M.D. Social History Tobacco Use Types Packs/Day Years Used Date Smoking Tobacco: Never Assessed Sex Assigned at Date Recorded Not on file documented as of this encounter Progress Notes Wayne Mina M.D. - 05/14/2009 1:24 PM CST Eye General CHIEF COMPLAINT double vision HISTORY OF PRESENT ILLNESS 73 year old woman who has had double vision for the past year. She has had double that is side by side and shoots upward. She has prism in her glasses - mostl;y single with prism glasses. Her doctor told her the crossing seems to be getting worse and that she was 'using up the prisms too fast.' Without glasses double constantly. Her sons has a lazy eye. She said she has had a thumping in her head for the past 10 year. she takes medication so she can sleep. MRI has been normal. 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 - already on an asa a day undercorrected et with current prism and HT not addressed - so update Rx to above prism - may improve headache strain - call me if still diplopic patient wants continued work up for thumping in ears - will refer to otology initially on discussionwith ENT DIAGNOSIS #1 esotropia #2 left hypertropia CDM Reports - EYEGEN Id: [id number] Status: Fnl documented in this encounter Plan of Treatment Not on filedocumented as of this encounter Visit Diagnoses Not on filedocumented in this encounter Care Teams Manager Corporate Communications Relationship Specialty Start Date End Date Elsewhere, Pcp PCP - General Family Medicine 11/20/20 documented as of this encounter
--- OUTSIDE RECORDS SUMMARY | 2022-03-23 04:17 | XMS_ITS | Encounter Summary ---
:1935 Author Organization [facility] Address [address] [place] [address] Care Team Providers Name Role Phone Elsewhere, Pcp Primary Care Provider Unavailable Encounter Details Date Type Department Care Team Description 06/22/2013 Historical Ophthalmology RST OPH Wayne Mina M.D. Social History Tobacco Use Types Packs/Day Years Used Date Smoking Tobacco: Never Assessed Sex Assigned at Date Recorded Not on file documented as of this encounter Progress Notes Wayne Mina M.D. - 06/22/2013 2:20 PM CST Eye General CHIEF COMPLAINT Post OP # 2 HISTORY OF PRESENT ILLNESS 06/19/13 1. Bilateral medial rectus recession of 4 mm with the left on adjustable suture. Recession of the left superior rectus 2 mm on adjustable suture. 78 year old female returns for a post op. Pain; both eyes; x 3 days; constantly; symptoms reported at level of 6/10. Patient reports occasional diplopia when she lays in bed flat - [facility] - single D and N IMPRESSION / REPORT / PLAN #1 pod#3 BMR rec and LSR rec for ET HT excellent alignment PF qid 1w then bid 2w then stop polymixin qid 1 w then stop celluvisc qh wa 1 w then wean epith defect improving see wed use +2.50 ot 2.75 or 3.00 readers DIAGNOSIS #1 pod#3 BMR rec and LSR rec for ET HT CDM Reports - EYEGEN Id: [id number] Status: Fnl documented in this encounter Plan of Treatment Not on filedocumented as of this encounter Visit Diagnoses Not on filedocumented in this encounter Care Teams Epic Kaleidoscope Analyst Relationship Specialty Start Date End Date Elsewhere, Pcp PCP - General Family Medicine 11/20/20 documented as of this encounter
--- OUTSIDE RECORDS SUMMARY | 2022-03-23 04:17 | XMS_ITS | Encounter Summary ---
:1935 Author Organization [facility] Address [address] [place] [address] Care Team Providers Name Role Phone Unavailable Primary Care Provider Unavailable Encounter Details Date Type Department Care Team Description 05/03/2011 Hospital Encounter HX NO MAPPING Social History Tobacco Use Types Packs/Day Years Used Date Smoking Tobacco: Never Assessed Sex Assigned at Date Recorded Not on file documented as of this encounter Plan of Treatment Not on filedocumented as of this encounter Visit Diagnoses Not on filedocumented in this encounter
--- OUTSIDE RECORDS SUMMARY | 2022-03-23 04:17 | XMS_ITS | Encounter Summary ---
:1935 Author Organization [facility] Address [address] [place] [address] Care Team Providers Name Role Phone Unavailable Primary Care Provider Unavailable Encounter Details Date Type Department Care Team Description 04/26/2011 Hospital Encounter HX NO MAPPING Social History Tobacco Use Types Packs/Day Years Used Date Smoking Tobacco: Never Assessed Sex Assigned at Date Recorded Not on file documented as of this encounter Plan of Treatment Not on filedocumented as of this encounter Visit Diagnoses Not on filedocumented in this encounter
--- OUTSIDE RECORDS SUMMARY | 2022-03-23 04:17 | XMS_ITS | Encounter Summary ---
:1935 Author Organization [facility] Address [address] [place] [address] Care Team Providers Name Role Phone Unavailable Primary Care Provider Unavailable Encounter Details Date Type Department Care Team Description 06/19/2013 Hospital Encounter HX NO MAPPING Social History Tobacco Use Types Packs/Day Years Used Date Smoking Tobacco: Never Assessed Sex Assigned at Date Recorded Not on file documented as of this encounter Medications at Time of Discharge [...]
--- OUTSIDE RECORDS SUMMARY | 2022-03-23 04:17 | XMS_ITS | Encounter Summary ---
:1935 Author Organization [facility] Address [address] [place] [address] Care Team Providers Name Role Phone Unavailable Primary Care Provider Unavailable Encounter Details Date Type Department Care Team Description 05/03/2011 - 05/07/2011 Hospital Encounter HX RST EUNICE 2B Social History Tobacco Use Types Packs/Day Years Used Date Smoking Tobacco: Never Assessed Sex Assigned at Date Recorded Not on file documented as of this encounter Plan of Treatment Not on filedocumented as of this encounter Procedures Procedure Name Priority Date/Time Associated Comments Diagnosis CT ABDOMEN PELVIS WITH Routine 05/04/2011 3:16 PM Results for this IV CONTRAST PRINCIPAL ARCHITECT procedure are i n the results section. INTERPRETATION OF Routine 05/03/2011 10:56 Result s for this OUTSIDE CT ABDOMEN AND PM PRINCIPAL ARCHITECT proce dure are in OR PELVIS the results section. documented in this encounter Results CT Abdomen Pelvis with IV Contrast (05/04/2011 3:16 PM PRINCIPAL ARCHITECT) Anatomical Region Laterality Modality Abdomen, Pelvis N/A Computed Tomography Specimen (Source) Anatomical Collection Method Collection Time Re ceived Time Location / / Volume Laterality 05/04/2011 3:16 PM PRINCIPAL ARCHITECT Narrative 05/04/2011 3:23 PM PRINCIPAL ARCHITECT 04-May-2011 15:16:00 ??Exam: CT ABDOMEN w & PELVIS w Indications: [id number] - ct abd/pel - abd cellulitis infected mesh; s/p ventral hernia repair -any fluid collections needing drains? ORIGINAL REPORT - 04-May-2011 15:23:00 EXAM: CT scan of the Abdomen and Pelvis with IV contrast: No change since outside CT 05/02/2011. N o fluid collections. Soft tissue thickening above the anterio r abdominal wall pigtail drain without residual fluid collection. Ventral hernia repair. Hysterectomy. Calcified granuloma right lower lobe. Vascular calcifications. Renal cysts. Electronically signed by: ?? Coy Diamond MD [id number] 04-May-2011 15:2 3 Procedure Note Coy Diamond M.D. - 08/06/2017Forma tting of this note might be different from the original. 04-May-2011 15:16:00 Exam: CT ABDOMEN w & PELVIS w Indications: [id number] - ct abd/pel - abd cellulitis infected mesh; s/p ventral hernia repair -any fluid collections needing drains? ORIGINAL REPORT - 04-May-2011 15:23:00 EXAM: CT scan of the Abdomen and Pelvis with IV contrast: No change since outside CT 05/02/2011. N o fluid collections. Soft tissue thickening above the anterio r abdominal wall pigtail drain without residual fluid collection. Ventral hernia repair. Hysterectomy. Calcified granuloma right lower lobe. Vascular calcifications. Renal cysts. Electronically signed by: Coy Diamond MD [id number] 04-May-2011 15:2 3 Asiya Quijano M.D. IMG CT PROCEDURES Interpretation of Outside CT Abdomen and or Pelvis (05/03/2011 10:56 PM PRINCIPAL ARCHITECT) Anatomical Region Laterality Modality Abdomen, Pelvis N/A Computed Tomography Specimen (Source) Anatomical Collection Method Collection Time Re ceived Time Location / / Volume Laterality 05/03/2011 10:56 PM PRINCIPAL ARCHITECT Narrative 05/04/2011 6:42 AM PRINCIPAL ARCHITECT 03-May-2011 22:56:00 ??Exam: Interp of OS CT Abd and or Pel Indications: Post-op Would infection? ORIGINAL REPORT - 03-May-2011 23:15:00 EXAM: Outside CT of the abdomen and pelv is with intravenous contrast performed 05/02/2011. COMPARISON: [facility] CT of the abdome n and pelvis 03/25/2011. IMPRESSION/FINDINGS: Interval drainage o f the anterior abdominal wall fluid collection with an indwelling pigtail catheter. There is significant new inflammatory change in the subcutaneous fat of the ab dominal wall which may represent celluli tis. No discrete fluid collection. Postoperative change of ventral hernia repair with mesh without evidence for dehiscence. Tiny fat-containing umbilical hernia. Bilateral renal cysts. Atherosclerotic v ascular calcifications. Degenerative changes of the spine. Calcified granuloma right lung base. Electronically signed by: ?? Marjorie Blake MD [phone] 03-May-2011 23:15 I have reviewed the films/images and agr ee with the above interpretation. Electronically signed by: ?? Bsii Manley MD. ??[id number] 04-May-2011 06:4 2 Procedure Note Ventura Manley IV, M.D. - 08/06/2017F ormatting of this note might be different from the original. 03-May-2011 22:56:00 Exam: Interp of OS CT Abd and or Pel Indications: Post-op Would infection? ORIGINAL REPORT - 03-May-2011 23:15:00 EXAM: Outside CT of the abdomen and pelv is with intravenous contrast performed 05/02/2011. COMPARISON: [facility] CT of the abdome n and pelvis 03/25/2011. IMPRESSION/FINDINGS: Interval drainage o f the anterior abdominal wall fluid collection with an indwelling pigtail catheter. There is significant new inflammatory change in the subcutaneous fat of the abdominal wall which may represent cellulitis. No discr ete fluid collection. Postoperative change of ventral hernia repair with mesh without evidence for dehiscence. Tiny fat-containing umbilical hernia. Bilateral renal cysts. Atherosclerotic vascular calcific ations. Degenerative changes of the spine. Calcified granuloma right lung base. Electronically signed by: Marjorie Blake MD [phone] 03-May-2011 23:15 I have reviewed the films/images and agr ee with the above interpretation. Electronically signed by: Bisi Manley MD. [id number] 04-May-2011 06:42 Asiya Quijano M.D. IMDio CT PROCEDURES documented in this encounter Visit Diagnoses Not on filedocumented in this encounter
--- OUTSIDE RECORDS SUMMARY | 2022-03-23 04:17 | XMS_ITS | Encounter Summary ---
:1935 Author Organization [facility] Address [address] [place] [address] Care Team Providers Name Role Phone Unavailable Primary Care Provider Unavailable Encounter Details Date Type Department Care Team Description 11/21/2008 Hospital Encounter HX RST C&RS FLOOR Nikky Nuno, PRACTICE AIR POLLUTION ANALYST, C.N.P., M.S.N., R.N. Social History Tobacco Use Types Packs/Day Years Used Date Smoking Tobacco: Never Assessed Sex Assigned at Date Recorded Not on file documented as of this encounter Plan of Treatment Not on filedocumented as of this encounter Procedures Procedure Name Priority Date/Time Associated Comments Diagnosis FL DEFECATING Routine 11/22/2008 10:37 AM Results for this PROCTOGRAM CDT procedure are i n the results section. documented in this encounter Results FL Colon with Defecating Proctogram (11/22/2008 10:37 AM CDT) Anatomical Region Laterality Modality Gastro Intestinal N/A Radiographic Imaging Specimen (Source) Anatomical Collection Method Collection Time Re ceived Time Location / / Volume Laterality 11/22/2008 10:37 AM CDT Narrative 11/22/2008 12:46 PM CDT 22-Nov-2008 10:37:00 ??Exam: GI-Proctogram Indications: prolapse rectal ORIGINAL REPORT - 22-Nov-2008 12:46:00 Defecating proctogram was performed usin g 1 cup of oral barium, barium paste administered per rectum and vaginal barium. The anorectal junction is relatively low-lying at rest. There is little elevation by the puborectalis mechanism during Ke gel maneuver and approximately 3cm of descent during evacuation. During evacuation, a moderate-sized enterocele develops which displaces the vagina anteriorly and impresses on the anterior aspect of the rectum. There is slight infolding of the rectal wall during straining and evacuation, consistent with mild intussusception, but no kurt prolapse was evident. Wi th effort, the patient does evacuate mos t of the rectum leaving a small amount of residue in the very distal rectum post-evacuation. Electronically signed by: ?? Marina Johnson MD [id number] 22-Nov-2008 12 :46 Procedure Note Marina Johnson M.D. - 08/07/2017Forma tting of this note might be different from the original. 22-Nov-2008 10:37:00 Exam: GI-Proctogram Indications: prolapse rectal ORIGINAL REPORT - 22-Nov-2008 12:46:00 Defecating proctogram was performed usin g 1 cup of oral barium, barium paste administered per rectum and vaginal barium. The anorectal junction is relatively low-lying at rest. There is little elevation by the puborectalis mechanism during Kegel yaa uver and approximately 3cm of descent during evacuation. During evacuation, a moderate-sized enterocele develops which displaces the vagina anteriorly and impresses on the anterior aspect of the rectum. There is slight infolding of the rectal wall during straining and evacuation, consistent with mild intussusception, but no kurt prolapse was evident. With effort, the patient does evacuate most of the rectum leaving a small amount of residue in the very distal rectum post-evacuation. Electronically signed by: Marina Johnson MD [id number] 22-Nov-2008 12 :46 Ramesh TORRES FLUOROSCOPY PROCEDURES documented in this encounter Visit Diagnoses Not on filedocumented in this encounter
--- OUTSIDE RECORDS SUMMARY | 2022-03-23 04:17 | XMS_ITS | Encounter Summary ---
:1935 Author Organization [facility] Address [address] [place] [address] Care Team Providers Name Role Phone Elsewhere, Pcp Primary Care Provider Unavailable Encounter Details Date Type Department Care Team Description 06/19/2013 Historical Ophthalmology RST OPH Wayne Mina M.D. Social History Tobacco Use Types Packs/Day Years Used Date Smoking Tobacco: Never Assessed Sex Assigned at Date Recorded Not on file documented as of this encounter Progress Notes Wayne Mina M.D. - 06/19/2013 1:25 PM CST Eye Postoperative MULTI-VISIT DOCUMENT This document contains multiple patient visits and is available for review in Document Viewer. CDM Reports - EYEPO Id: [id number] Status: Fnl documented in this encounter Plan of Treatment Not on filedocumented as of this encounter Visit Diagnoses Not on filedocumented in this encounter Care Teams Pharmaceutical Sales Specialist Relationship Specialty Start Date End Date Elsewhere, Pcp PCP - General Family Medicine 11/20/20 documented as of this encounter
--- OUTSIDE RECORDS SUMMARY | 2022-03-23 04:17 | XMS_ITS | Encounter Summary ---
:1935 Author Organization [facility] Address [address] [place] [address] Care Team Providers Name Role Phone Unavailable [...]
--- OUTSIDE RECORDS SUMMARY | 2022-03-23 04:17 | XMS_ITS | Encounter Summary ---
:1935 Author Organization [facility] Address [address] [place] [address] Care Team Providers Name Role Phone Elsewhere, Pcp Primary Care Provider Unavailable Encounter Details Date Type Department Care Team Description 08/12/2010 Historical Ophthalmology RST OPH Wayne Mina M.D. Social History Tobacco Use Types Packs/Day Years Used Date Smoking Tobacco: Never Assessed Sex Assigned at Date Recorded Not on file documented as of this encounter Progress Notes Wayne Mina M.D. - 08/12/2010 2:41 PM CDT Eye General CHIEF COMPLAINT Soreness in right eye HISTORY OF PRESENT ILLNESS This is a 75 year old female here for soreness in her right eye can barely touch it - Not today - . She has a history of esotropia,left; hypertropia. Vision is stable. Prism in glasses is helping herdouble vision. Patient states that her eyes tire easily. Floaters alone; patient uncertain which eye(s) involved; x 6 months; on and off. Denies flashes of light. Pain; right eye; x 6 months; on and off; symptoms reported at level of 5/10. Patient states that Dr Mina mentioned that she had had a stroke at her last visit and is curious what he meant. 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 - already on an asa a day current prism is optimized thumping in ears has been worked up by ENT - no cause found #3 R ocular pain intermittent no clear reason except dry eyes - recomment Refresh plus q 2 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
--- OUTSIDE RECORDS SUMMARY | 2022-03-23 04:17 | XMS_ITS | Encounter Summary ---
:1935 Author Organization [facility] Address [address] [place] [address] Care Team Providers Name Role Phone Elsewhere, Pcp Primary Care Provider Unavailable Encounter Details Date Type Department Care Team Description 06/08/2012 Historical Ophthalmology RST OPH Wayne Mina M.D. Social History Tobacco Use Types Packs/Day Years Used Date Smoking Tobacco: Never Assessed Sex Assigned at Date Recorded Not on file documented as of this encounter Progress Notes Wayne Mina M.D. - 06/08/2012 1:20 PM CST Eye General HISTORY OF PRESENT ILLNESS 76 year old here for follow up of esotropia, and left hypertropia. With current glasses no double vision unless very tired, the the double will be a bit diagonal. 3 abdoninal surgeries since last eye exam. Glasses may need adjusting? Hx DI type ET and skew - last seen 9 months ago and given new prism - not real double with it but sometimes fuzzy when tired - physical therapist referred patient back here for vertigo. 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 need candidate for BMR rec - pt doesnt want GA - so discuss topical also disc may need snip to SR following that - i.e 2nd procedure under topical - will consider - otherwise see iyr #2 vertigo no ocular cause - continue to see gen med #3 mild dry armd following w amsler DIAGNOSIS #1 divergence insufficency ET #2 vertigo #3 mild dry armd CD Reports - EYEGEN Id: [id number] Status: Fnl documented in this encounter Plan of Treatment Not on filedocumented as of this encounter Visit Diagnoses Not on filedocumented in this encounter Care Teams License Clerk Relationship Specialty Start Date End Date Elsewhere, Pcp PCP - General Family Medicine 11/20/20 documented as of this encounter
[2022-03-23 04:19] LABS: Appearance Urine Clear (Clear); Bilirubin Urine Negative (Negative); Blood Urine 1+ (Negative); Color Urine Yellow (Yellow); Glucose Urine Negative (Negative); Ketones Urine Negative (Negative); Leukocyte Esterase Urine Negative (Negative); Nitrite Urine Negative (Negative); Protein Urine Negative (Negative); Specific Gravity Urine 1.015 (1.000-1.030); Urobilinogen Urine 0.2 (0.2-1.0)
[2022-03-23 04:28] LABS: Basophils Percent Auto 0.8 % (0.0-3.0); Eosinophils Percent Auto 5.3 % (0.0-7.0); Hematocrit 35.8 % (33.0-51.0); Hemoglobin* 11.9 gm/dL (12.0-16.0); Immature Granulocytes Pct Auto 0.8 %; Lymphocytes Percent Auto 26.8 % (20-44); Mean Corpuscular HGB Conc 33 gm/dL (32-36); Mean Corpuscular Hemoglobin 33 pg (26-34); Mean Corpuscular Volume 98 fL (80-100); Monocytes Percent Auto 8.9 % (0.0-11.0); Neutrophils Percent Auto 57.4 % (42.0-72.0); Platelet Count* 230 K/uL (140-440); RDW Coefficient of Variation % 12.4 % (11.5-15.5); Red Blood Count 3.64 m/uL (4.00-5.20); White Blood Count* 3.95 K/uL (4.50-11.00)
[2022-03-23 04:31] LABS: Chloride* 96 mmol/L (96-114); Slide Review Reflex No
[2022-03-23 04:32] LABS: Albumin* 4.5 g/dL (3.3-5.0); Potassium* 4.1 mmol/L (3.6-5.1); Sodium* 133 mmol/L (135-149)
[2022-03-23 04:34] LABS: Amylase* 86 U/L (18-89)
[2022-03-23 04:35] LABS: Alanine Aminotransferase* 37 U/L (4-35); Alkaline Phosphatase* 76 U/L (40-150); Aspartate Amino Transferase* 37 U/L (12-35); Bilirubin Total* 0.6 mg/dL (0.1-1.5); Blood Urea Nitrogen* 18 mg/dL (7-30); Calcium* 9.6 mg/dL (8.4-10.6); Carbon Dioxide* 29 mmol/L (20-32); Creatinine* 0.8 mg/dL (0.5-1.5); Est. Creatinine Clearance* 37.68; Estimated Glomerular Filt Rate 73 ml/min; Glucose* 88 mg/dL (60-115); Lipase* 67 U/L (23-300); Total Protein* 7.3 g/dL (6.0-8.3)
[2022-03-23 04:48] LABS: C Reactive Protein* < 0.5 mg/dL (0.5-1.0)
--- NOTE | 2022-03-23 04:58 | CRLHL7_ITS ---
For Patients: As a result of the 21st Century Cures Act, medical imaging exams and procedure reports are released immediately into your electronic medical record. You may view this report before your referring provider. If you have questions, please contact your health care provider. INDICATION: Flank pain and chest pain. COMPARISON: An abdomen and pelvis CT dated May 03, 2020. TECHNIQUE: CT examination of the chest, abdomen and pelvis was performed following the uneventful intravenous administration of 65 cc of Isovue 370. Thin section axial images were obtained from the thoracic inlet through the pubic symphysis. Sagittal and coronal reformatted imaging was performed Please note that all CT scans at this facility use dose modulation, iterative reconstruction, and/or weight-based dosing when appropriate to reduce radiation dose to as low as reasonably achievable. FINDINGS: CHEST: Heart size normal substernal extension a goiter. No adenopathy. No pericardial effusion. Atherosclerotic vascular calcifications are noted. There is fluid in the esophagus suggesting gastroesophageal reflux. The lungs show no focal consolidation, infiltrate or mass. Minimal bibasilar atelectasis. Biapical pleural parenchymal scarring. Evidence of remote granulomatous infection. ABDOMEN AND PELVIS: LIVER/BILIARY SYSTEM:The liver is normal in size and configuration. There is no focal mass and there is no intra- or extra hepatic biliary ductal dilatation.Distended but otherwise unremarkable appearing gallbladder. ADRENALS: Normal KIDNEYS, URETERS and BLADDER:A few scattered low-density lesions are noted too small to characterize but likely cysts. No evidence of hydronephrosis or hydroureter. The bladder appears normal. SPLEEN:Normal appearance. PANCREAS: Appears normal. RETROPERITONEUM and MESENTERY: There is no mass, adenopathy or aortic aneurysm. Atherosclerotic vascular calcifications GASTROINTESTINAL SYSTEM: Mild fecal retention without mechanical obstruction. Diverticulosis. No diverticulitis. No specific visible abnormality regarding the bowel. PELVIS: No mass, adenopathy or free fluid. OSSEOUS STRUCTURES and ABDOMINAL WALL: Demineralization, degenerative changes and scoliosis.No significant abdominal wall defect. OTHER: No free fluid or free air. IMPRESSION: 1. No specific visible cause for pain in the chest, abdomen and pelvis. 2. Incidental nonacute appearing findings as discussed above. Please review the comment. Please note that all CT scans at this facility use dose modulation, iterative reconstruction, and/or weight-based dosing when appropriate to reduce radiation dose to as low as reasonably achievable. Dictated by Bimal Green MD @ 03/23/2022 6:22:28 AM (Electronically Signed)
[2022-03-23 05:09] LABS: RBC Urine 0-2 (0-2); WBC Urine 0-2 (0-5)
[2022-03-23 07:08] VITALS: BP 147/77; PULSE 66; RESP 16; TEMP 37.1; O2SAT 98
== END 2022-03-23 07:29 | disposition home or self-care (01) ==
PROVIDERS: Emergency Provider Family Medicine; PCP Family Medicine
DX: M54.9 Dorsalgia, unspecified (principal)
CPT/HCPCS: 36415; 71260; 74177; 80053; 81001; 82150; 83690; 85025; 86140; 96360; 99283; 99284; A9270; J7120; Q9967

== ENCOUNTER 2022-08-02 09:10 | Outpatient (CLI) | payer MEDICARE, BC, SELFPAY ==
--- OUTSIDE RECORDS SUMMARY | 2022-08-02 12:50 | XMS_ITS | Continuity of Care Document ---
Author Name Unknown Organization [facility] Address [address], [place] [address] Phone Care Team Providers Care Patient Ombudsperson Name Role Phone Mark Marie OD Unavailable Unavailable Advance Directives Directive Yes / No Effective Date File Name No Information Encounters Encounter Description Practice Location Reason(s) For Visit Diagnoses Date Provider Providers Copied on Encounter [facility], [address], [place], [id number], tel:[phone] [place] [phone] No Information Frank Flores. [address], [place], [id number], [place]. tel:[phone] Referring Provider: Mark Sesay, [address], [address]. tel:[phone] Family History Family Member Type Diagnosis Age At Onset No Information Payers Payer name Insurance type Covered constitution party ID Authoriza tion(s) No Information Social History [...]
== END 2022-08-02 09:11 | disposition home or self-care (01) ==
LOC: AMB 12:48
PROVIDERS: PCP Family Medicine; Visit Provider Emergency Medicine Emergency Medical Services
DX: R42 Dizziness and giddiness (principal); H53.8 Other visual disturbances
CPT/HCPCS: A0425; A0427

== ENCOUNTER 2022-08-02 09:38 | Emergency (ER) | payer MEDICARE, BC, SELFPAY ==
[2022-08-02] VITALS (8 sets, daily range): BP systolic 119–159; BP diastolic 57–75; PULSE 50–58; RESP 16; TEMP 36.3; O2SAT 95–99; BMI 22.1
--- NOTE | 2022-08-02 10:02 | CRLHL7_ITS ---
For Patients: As a result of the Century Cures Act, medical imaging exams and procedure reports are released immediately into your electronic medical record. You may view this report before your referring provider. If you have questions, please contact your health care provider. Indication: Weakness headache Technique: Noncontrast head CT Comparison: No comparison Findings: Axial noncontrast images through the brain parenchyma demonstrates generalized parenchymal volume loss. Periventricular hypo lucencies likely reflecting chronic small vessel ischemic change. There is no acute intracranial hemorrhage or mass no midline shift. No abnormal extra-axial air or fluid collections are seen. Skull and scalp are unremarkable. Impression: No acute intracranial hemorrhage or mass. Please note that all CT scans at this facility use dose modulation, iterative reconstruction, and/or weight-based dosing when appropriate to reduce radiation dose to as low as reasonably achievable. Dictated by Stephanie Serrano MD @ 08/02/2022 10:58:26 AM (Electronically Signed)
--- NOTE | 2022-08-02 10:05 | ED.WEAKNESS ---
HPI - Weakness General Chief complaint: Weakness Stated complaint: weakness Time Seen by Provider: 08/02/22 09:50 History of Present Illness HPI Narrative: This 87-year-old female comes in reporting generalized weakness that began just prior to arrival. She states she normally ambulates and did get up to breakfast this morning. She came back to her room and began reading then notice some visual changes. That was temporary as her vision improved. She began to have a headache and reported feeling of lightheadedness. She states that she now is unable to get up and ambulate because she feels weak and heavy all over. She does not report any unilateral weakness. She states that she does not normally get headaches. Related Data Home Medications Medication Instructions Recorded Confirmed amlodipine 2.5 mg tablet mg 11/10/21 gabapentin 300 mg capsule mg 11/10/21 ketotifen fumarate 0.025 % (0.035 drp ophthalmic (eye) 11/10/21 %) eye drops (Zaditor) levothyroxine 50 mcg tablet mcg 11/10/21 lisinopril 40 mg tablet mg 11/10/21 lorazepam 1 mg tablet mg 11/10/21 omeprazole 40 mg capsule,delayed mg 11/10/21 release sertraline 25 mg tablet mg 11/10/21 tamsulosin 0.4 mg capsule mg PO 11/10/21 temazepam 15 mg capsule mg 11/10/21 Allergies Allergy/AdvReac Type Severity Reaction Status Date / Time amlodipine Allergy Unknown Verified 03/23/22 06:06 atorvastatin Allergy Unknown Verified 03/23/22 06:06 atropine Allergy Unknown Verified 03/23/22 06:06 ciprofloxacin Allergy Unknown Verified 03/23/22 06:06 cyclobenzaprine Allergy Unknown Verified 03/23/22 06:06 doxycycline Allergy Unknown Verified 03/23/22 06:06 hydrochlorothiazide Allergy Unknown Verified 03/23/22 06:06 ibuprofen [From Motrin] Allergy Unknown Verified 03/23/22 06:06 labetalol Allergy Unknown Verified 03/23/22 06:06 phenol Allergy Unknown Verified 03/23/22 06:06 Sulfa (Sulfonamide Allergy Unknown Verified 03/23/22 06:06 Antibiotics) trazodone Allergy Unknown Verified 03/23/22 06:06 glycerine Allergy Unknown Uncoded 03/23/22 06:06 high cosamin Allergy Unknown Uncoded 03/23/22 06:06 Review of Systems Status of ROS: Reports: 10 or more systems reviewed and unremarkable except as noted in History and below Narrative: Constitutional: No fevers, no weight gain or loss. Eyes: No discharge. No vision changes. HENT: No congestion, no sore throat, no ear pain. Cardiovascular: No chest pain, no palpitations. Respiratory: No shortness of breath, no wheezes, no cough. Gastrointestinal: No abdominal pain, no vomiting, no diarrhea. Genitourinary: No dysuria, no hematuria. Musculoskeletal: Generalized weakness. Skin: No rashes, no pruritis. Neurological: No speech change. Generalized weakness bilaterally. 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 Endo/Heme/Allergies: No bruising or bleeding. No polydipsia. Pysch: no suicidality, no anxiety, no insomnia. All other systems reviewed and are negative. [facility] Medical History Behcet's disease Diverticulosis Hernia History of basal cell cancer Hypertension Lumbago Osteopenia Rectocele TMJ arthralgia UTI (urinary tract infection) Surgical History H/O: hysterectomy History of appendectomy History of bladder suspension procedure History of hemorrhoidectomy History of sacrocolpopexy S/P MULU (total abdominal hysterectomy) Social History Smoking Status: Former smoker Do you use any of these nicotine containing products: None Second hand tobacco smoke exposure: No How often do you have a drink containing alcohol: never How often do you have six or more drinks on one occasion: Never AUDIT-C Alcohol total score: 0 Non-prescribed substance use: denies use Exam Narrative: Exam Narrative: Constitutional: Well-developed, well-nourished. HEENT: Normocephalic, atraumatic. She complains of a headache. Neck: Normal range of motion. Nontender. Supple. Heart: Regular. No murmurs. Normal rate. Intact distal pulses. Lungs: Clear to auscultation. No chest discomfort. No wheezes, rhonchi, or rales. Abdomen: Normal bowel sounds. Nontender. No rebound tenderness. Genitalia: Deferred. Back: Normal range of motion. Extremities: No injury. Skin: Intact. No rash. Warm. No erythema or pallor. Neurologic: No facial asymmetry. Tongue is midline. 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 [id number] is normal. No pronator drift. She does have bilateral weakness in both lower extremities such that she is unable to raise either leg from the bed. She is now reporting pain in her lower extremities also. Psychiatric: No suicidality. No anxiety or depression. No insomnia. Nursing notes and vitals signs are reviewed. Const: Vital Signs, click to edit/add: Vital Signs - 24 hr 08/02/22 09:43 08/02/22 10:01 08/02/22 10:31 Temperature 97.4 F L Pulse Rate 58 L 52 L Pulse Rate [Pulse Oximeter] 56 L Respiratory Rate 16 Blood Pressure 155/69 H 152/68 H Blood Pressure [Ri ght Upper Arm] 159/75 H Pulse Oximetry 97 98 99 Oxygen Delivery Me thod Room Air 08/02/22 11:02 08/02/22 11:32 Temperature Pulse Rate 51 L 51 L Pulse Rate [Pulse Oximeter] Respiratory Rate Blood Pressure 119/57 L 137/61 Blood Pressure [Ri ght Upper Arm] Pulse Oximetry 95 97 Oxygen Delivery Me thod Course Vital Signs Vital signs: Initial Vital Signs Temperature 97.4 F L 08/02/22 09:43 Temperature Source Temporal Artery Scan 08/02/22 09:43 Pulse Rate 56 L 08/02/22 09:43 Pulse Rhythm Regular 08/02/22 09:43 Respiratory Rate 16 08/02/22 09:43 Blood Pressure 159/75 H 08/02/22 09:43 Blood Pressure Mean 103 08/02/22 09:43 Blood Pressure Position Supine 08/02/22 09:43 Pulse Oximetry 97 08/02/22 09:43 Oxygen Delivery Method Room Air 08/02/22 09:43 Vital Signs Temperature 97.4 F L 08/02/22 09:43 Pulse Rate 56 L 08/02/22 09:43 Respiratory Rate 16 08/02/22 09:43 Blood Pressure 159/75 H 08/02/22 09:43 Pulse Oximetry 97 08/02/22 09:43 Oxygen Delivery Method Room Air 08/02/22 09:43 Temperature 97.4 F L 08/02/22 09:43 Pulse Rate 51 L 08/02/22 11:32 Respiratory Rate 16 08/02/22 09:43 Blood Pressure 137/61 08/02/22 11:32 Pulse Oximetry 97 08/02/22 11:32 Oxygen Delivery Method Room Air 08/02/22 09:43 MDM - Weakness MDM Narrative Medical decision making narrative: This patient comes in reporting generalized weakness and headache. Her upper extremity exam is normal. Initially she was unable to lift her legs from the bed due to weakness. She did not report a severe headache and states that she normally does not get headaches. She did have some temporary visual changes prior to the headache. CT imaging of her head shows no acute findings. Additionally lab results also are all reassuring. Meanwhile the patient did receive IV doses of Zofran 4 mg and morphine 2 mg. She was complaining of pain in 1 leg during this time. Her symptoms are much better now and actually she was able to get up and ambulate normally. She is okay to return home to continue current plans. Her symptoms may be related to a complicated migraine. She is not showing any sign of neurologic deficit. Lab Data Labs: Lab Results 08/02/22 08/02/22 Range/Units 10:23 10:30 WBC 4.93 (4.50-11.00) K/uL RBC 3.81 L (4.00-5.20) m/uL Hgb 12.2 (12.0-16.0) gm/dL Hct 37.3 (33.0-51.0) % MCV 98 (80-100) fL MCH 32 (26-34) pg MCHC 33 (32-36) gm/dL RDW Coeff of Isaias 12.4 (11.5-15.5) % Plt Count 241 (140-440) K/uL Neut % (Auto) 66.3 (42.0-72.0) % Lymph % (Auto) 20.9 (20-44) % [place] % (Auto) 8.3 (0.0-11.0) % Eos % (Auto) 3.9 (0.0-7.0) % Baso % (Auto) 0.4 (0.0-3.0) % Neut # (Auto) 3.27 (1.7-7.0) K/uL Lymph # (Auto) 1.03 (0.90-2.90) K/uL [place] # (Auto) 0.40 (0.00-0.90) K/UL Eos # (Auto) 0.19 (0.00-0.50) K/uL Baso # (Auto) 0.02 (0.00-0.30) K/uL ESR 11 (2-20) mm/hr Sodium 135 (135-149) mmol/L Potassium 3.8 (3.6-5.1) mmol/L Chloride 101 (96-114) mmol/L Carbon Dioxide 27 (20-32) mmol/L BUN 12 (7-30) mg/dL Creatinine 0.8 (0.5-1.5) mg/dL Estimated Creat Clear 37.01 Estimated GFR 72 ml/min Glucose 76 (60-115) mg/dL Calcium 9.3 (8.4-10.6) mg/dL C-Reactive Protein < 0.5 L (0.5-1.0) mg/dL Urine Color Yellow (Yellow) Urine Appearance Clear (Clear) Urine pH 8.0 (5.0-8.5) Ur Specific [place] 1.015 (1.000-1.030) Urine Protein Negative (Negative) Urine Glucose (UA) Negative (Negative) Urine Ketones Negative (Negative) Urine Blood 1+ A (Negative) Urine Nitrite Negative (Negative) Urine Bilirubin Negative (Negative) Urine Urobilinogen 0.2 (0.2-1.0) Ur Leukocyte Esterase Negative (Negative) Urine RBC 2-5 A (0-2) Urine WBC 2-5 (0-5) Ur Squamous Epith Cells None (None-Few) Urine Bacteria None (None) SARS-CoV-2 (PCR) Negative SARS-CoV-2 (Negative) Influenza Type A (PCR) Negative PCR FLU A (Negative) Influenza Type B (PCR) Negative PCR FLU B (Negative) RSV (PCR) Negative PCR RSV (Negative) Imaging Data CT scan - head: Radiologist's impression: Findings: Axial noncontrast images through the brain parenchyma demonstrates generalized parenchymal volume loss. Periventricular hypo lucencies likely reflecting chronic small vessel ischemic change. There is no acute intracranial hemorrhage or mass no midline shift. No abnormal extra-axial air or fluid collections are seen. Skull and scalp are unremarkable. Impression: No acute intracranial hemorrhage or mass. Discharge Plan Discharge Clinical Impression: Episode of generalized weakness Patient Disposition: Home, Self-Care Condition: Improved Additional Instructions: Continue current plans. Follow up with MD or return if symptoms are recurrent or worsening. Prescriptions: No Action ketotifen fumarate [Zaditor] 0.025 % (0.035 %) drops OPHTHALMIC (EYE) Patient Comments: USE 1 DROP IN AFFECTED EYE/EYES NEEDED TWICE DAILY. amlodipine 2.5 mg tablet Patient Comments: TAKE ONE TABLET BY MOUTH ONCE DAILY omeprazole 40 mg capsule,delayed release(DR/EC) Patient Comments: TAKE 1 CAPSULE BY MOUTH EVERY DAY BEFORE A MEAL. DO NOT CRUSH OR CHEW temazepam 15 mg capsule Patient Comments: TAKE 1 CAPSULE (15 MG) BY MOUTH AT BEDTIME IF NEEDED FOR SLEEP. DO NOT TAKE LORAZEPAM WITHIN 6 HOURS ON FRONT OR BACK END OF THIS MED. tamsulosin 0.4 mg capsule PO Patient Comments: TAKE 1 CAPSULE (0.4 MG) BY MOUTH ONCE DAILY AFTER A MEAL. levothyroxine 50 mcg tablet Patient Comments: TAKE ONE TABLET BY MOUTH BEFORE BREAKFAST gabapentin 300 mg capsule Patient Comments: TAKE ONE CAPSULE BY MOUTH EVERY MORNING THEN 2 CAPSULES AT AT NOON AND 3 CAPSULES AT BEDTIME sertraline 25 mg tablet Patient Comments: TAKE 1 TABLET (25 MG) BY MOUTH EVERY MORNING. lorazepam 1 mg tablet Patient Comments: TAKE 1 TABLET (1 MG) BY MOUTH 2 TIMES DAILY. lisinopril 40 mg tablet Patient Comments: TAKE 1 TABLET (40 MG) BY MOUTH ONCE DAILY. Follow Up/Referrals: Daisy Carpenter DO [Primary Care Provider] - Stand Alone Forms: [facility] Instructions
[2022-08-02] MEDS: ONDANSETRON 2 MG/ML inj 4 MG IVP (10:35)
[2022-08-02] MEDS: MORPHINE 10 MG/ML inj 2 MG IVP (10:35)
[2022-08-02 10:45] LABS: Basophils Absolute Auto 0.02 K/uL (0.00-0.30); Basophils Percent Auto 0.4 % (0.0-3.0); Eosinophils Absolute Auto 0.19 K/uL (0.00-0.50); Eosinophils Percent Auto 3.9 % (0.0-7.0); Hematocrit 37.3 % (33.0-51.0); Hemoglobin* 12.2 gm/dL (12.0-16.0); Immature Granulocytes Abs Auto 0.01 K/uL (0.00-0.30); Immature Granulocytes Pct Auto 0.2 %; Lymphocytes Absolute Auto 1.03 K/uL (0.90-2.90); Lymphocytes Percent Auto 20.9 % (20-44); Mean Corpuscular HGB Conc 33 gm/dL (32-36); Mean Corpuscular Hemoglobin 32 pg (26-34); Mean Corpuscular Volume 98 fL (80-100); Monocytes Percent Auto 8.3 % (0.0-11.0); Neutrophils Absolute Auto 3.27 K/uL (1.7-7.0); Neutrophils Percent Auto 66.3 % (42.0-72.0); Platelet Count* 241 K/uL (140-440); RDW Coefficient of Variation % 12.4 % (11.5-15.5); Red Blood Count 3.81 m/uL (4.00-5.20); White Blood Count* 4.93 K/uL (4.50-11.00)
[2022-08-02 10:48] LABS: Slide Review Reflex No
[2022-08-02 10:55] LABS: Appearance Urine Clear (Clear); Bilirubin Urine Negative (Negative); Blood Urine 1+ (Negative); Color Urine Yellow (Yellow); Glucose Urine Negative (Negative); Ketones Urine Negative (Negative); Leukocyte Esterase Urine Negative (Negative); Nitrite Urine Negative (Negative); Protein Urine Negative (Negative); Specific Gravity Urine 1.015 (1.000-1.030); Urobilinogen Urine 0.2 (0.2-1.0)
[2022-08-02 11:36] LABS: Erythrocyte SedimentationRate* 11 mm/hr (2-20)
--- OUTSIDE RECORDS SUMMARY | 2022-08-02 11:39 | XMS_ITS | Continuity of Care Document ---
Author Name Unknown Organization [facility] Address [address], [place] [address] Phone Care Team Providers Care Disposition Clerk Name Role Phone Mark Marie OD Unavailable Unavailable Advance Directives Directive Yes / No Effective Date File Name No Information Encounters Encounter Description Practice Location Reason(s) For Visit Diagnoses Date Provider Providers Copied on Encounter [facility], [address], [place], [id number], tel:[phone] [place] [phone] No Information Frank Flores. [address], [place], [id number], [place]. tel:[phone] Referring Provider: Mark Sesay, [address], [place], [address]. tel:[phone] Family History Family Member Type Diagnosis Age At Onset No Information Payers Payer name Insurance type Covered republican ID Authoriza tion(s) No Information Social History Type Description Quantity Date Captured Comments Sex Female Smoking Status No Information Chief Complaint And Reason For Visit No Information Reason For Referral Reason For Referral No Information Plan Of Treatment Date Type Action Status No Information History Of Present Illness Encounter Date Complaint History Of Prese nt Illness No Information Functional Status Date Functional Assessmen t No Information Instructions Date Instruction Additional Infor mation No Information Assessments Type Assessment Date No Information Patient Care Teams Name Effective Dates (start - stop) Status Members No Information
[2022-08-02 11:42] LABS: PCR FLU A Negative PCR FLU A (Negative); PCR FLU B Negative PCR FLU B (Negative); PCR RSV Negative PCR RSV (Negative)
[2022-08-02 11:45] LABS: Chloride* 101 mmol/L (96-114); Potassium* 3.8 mmol/L (3.6-5.1); Sodium* 135 mmol/L (135-149)
[2022-08-02 11:47] LABS: Creatinine* 0.8 mg/dL (0.5-1.5); Est. Creatinine Clearance* 37.01; Estimated Glomerular Filt Rate 72 ml/min
[2022-08-02 11:48] LABS: Blood Urea Nitrogen* 12 mg/dL (7-30); Calcium* 9.3 mg/dL (8.4-10.6); Carbon Dioxide* 27 mmol/L (20-32); Glucose* 76 mg/dL (60-115); SARS PCR* Negative SARS-CoV-2 (Negative)
[2022-08-02 11:57] LABS: C Reactive Protein* < 0.5 mg/dL (0.5-1.0)
== END 2022-08-02 13:50 | disposition home or self-care (01) ==
PROVIDERS: Emergency Provider Emergency Medicine Emergency Medical Services; PCP Family Medicine
DX: R53.1 Weakness (principal); R51.9 Headache, unspecified
CPT/HCPCS: 36415; 70450; 80048; 81001; 85025; 85651; 86140; 87502; 87634; 87635; 96374; 96375; 99284; J2270; J2405

== ENCOUNTER 2022-08-12 06:56 | Outpatient (CLI) | payer MEDICARE, BC, SELFPAY ==
--- OUTSIDE RECORDS SUMMARY | 2022-08-15 17:39 | XMS_ITS | Continuity of Care Document ---
Author Name Unknown Organization [facility] Address [address], [place] [address] Phone Care Team Providers Care Customer Field Representative Name Role Phone Mark Marie OD Unavailable Unavailable Advance Directives Directive Yes / No Effective Date File Name No Information Encounters Encounter Description Practice Location Reason(s) For Visit Diagnoses Date Provider Providers Copied on Encounter [facility], [address], [place], [id number], tel:[phone] [place] [address] No Information Frank Flores. [address], [place], [id number], [place]. tel:[phone] Referring Provider: Mark Sesay, [address] [place] [address], [id number]. tel:[phone] Family History Family Member Type Diagnosis Age At Onset No Information Payers Payer name Insurance type Covered [employer] party ID Authoriza tion(s) No Information Social [...]
--- OUTSIDE RECORDS SUMMARY | 2022-08-15 17:39 | XMS_ITS | Continuity of Care Document ---
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 Name Role Phone Leandra RAMIREZ, Cande Unavailable Unavailable Allergies, Adverse Reactions, Alerts Substance Reaction Status Criticality adhesive tape Rash Active No Information Sulfa (Sulfonamide Antibiotics) Rash Active No Information Medications Medication Instructions Dosage Effective Dates (start - stop) Status Comments lisinopril 40 mg tablet take 1 tablet (40MG) by oral route every day 40 MG - Active omeprazole 20 mg capsule,delayed release take 1 capsule (20MG) by ORAL route every day before a meal 20 MG - Active levothyroxine 88 mcg tablet take 1 tablet (88MCG) by oral route every day 88 MCG - Active lorazepam 1 mg tablet take 1 tablet (1MG ) by oral route every day 1 MG - Active gabapentin 300 mg capsule take 1 capsule (300MG) by ORAL route 3 times every day 300 MG - Active tramadol 50 mg tablet take 1 Tablet (50M G) by ORAL route 3 times every day 50 MG - Active meclizine 12.5 mg tablet take 1 Tablet (12.5MG) by oral route 3 times every day 12.5 MG - Active aspirin 81 mg tablet,delayed release take 1 tablet (81MG) by oral route every day 81 MG - Active Procedures Procedure Date Colonoscopy Flex; W/remov Les- 12 Level Iv-surg Path Gross/micro 12 [id number] Advance Directives Directive Yes / No Effective Date File Name No Information Encounters Encounter Description Practice Location Reason(s) For Visit Diagnoses Date Provider Providers Copied on Encounter [facility], [address] [address], [place], [id number], [place] tel:[phone] [facility] No Information 5 Leandra Castellon . [address] [facility], [facility] [address], [place], [id number] , [place]. tel:[phone] Referring Provider: Listed Not. [facility], [address] [address], [place], [id number], [place] tel:[phone] [facility] Personal History Colon PolypsColon Cancer ScreeningBenign Neoplasm ColonDiverticulos is Of ColonColon Cancer ScreeningDivertic ulosis Of ColonPersonal History Colon PolypsBenign Neoplasm Colon 2 Keyur Lowe. [address] [facility], [facility], [place], [id number] , [place]. tel:[phone] Referring Provider: Kendall Felton, [address] [place] [address], [place], [address]. tel:[phone] Family History Family Member Type Diagnosis Age [...]
== END 2022-08-12 06:57 | disposition home or self-care (01) ==
LOC: AMB 08-15 17:37
PROVIDERS: PCP Family Medicine; Visit Provider Family Medicine
DX: S09.90XA Unspecified injury of head, initial encounter (principal); W01.10XA Fall on same level from slipping, tripping and stumbling with subsequent striking against unspecified object, initial encounter; Y92.009 Unspecified place in unspecified non-institutional (private) residence as the place of occurrence of the external cause
CPT/HCPCS: A0425; A0427

== ENCOUNTER 2022-08-12 07:22 | Emergency (ER) | payer MEDICARE, BC, SELFPAY ==
[2022-08-12 07:27] VITALS: BP 153/67; PULSE 57; RESP 18; TEMP 36.1; O2SAT 98; BMI 22.1
--- NOTE | 2022-08-12 07:42 | ED.GENADULT ---
HPI - General Adult General Time Seen by Provider: 07:42 Date Seen: 08/12/22 Chief complaint: Hip Injury/Pain Stated complaint: Fall Time Seen by Provider: 08/12/22 07:42 Source: patient, EMS, RN notes reviewed and old records reviewed Mode of arrival: EMS Limitations: no limitations History of Present Illness HPI narrative: Cary is a very pleasant 87-year-old female with a history of hypertension, hypothyroid who comes to the [facility] via EMS after a fall. Patient is a resident of [facility]. She states that she was walking down the hallway to get her morning coffee. She states her walker suddenly went sideways and she fell sideways striking her head against the wall. She did not lose consciousness. She was unable to get up and complained of left hip pain. EMS was called and they were concerned about a shortened left leg/possible hip fracture and brought patient to the emergency room. She did receive 25 mcg of fentanyl. Here in the emergency room patient denies loss of consciousness but notes that she has a bump on the back of her head. She denies visual changes. She thinks that maybe her arms felt somewhat weak this morning. She notes that a few weeks ago she was here and her legs felt very weak. She states that they told her that she had a migraine but she is fairly certain that she did not as she does not get headaches. I was able to read her note and she did improve on Zofran and morphine was able to ambulate after that treatment. She states that she started wearing compression stockings and she thinks that has helped her leg symptoms and neuropathy. Cary denies any recent cough cold or fever or other illnesses. She is noting left hip pain. States it is hard to lift her leg off the bed. No numbness or tingling at this time. Related Data Home Medications Medication Instructions Recorded Confirmed amlodipine 2.5 mg tablet mg 11/10/21 gabapentin 300 mg capsule mg 11/10/21 ketotifen fumarate 0.025 % (0.035 drp ophthalmic (eye) 11/10/21 %) eye drops (Zaditor) levothyroxine 50 mcg tablet mcg 11/10/21 lisinopril 40 mg tablet mg 11/10/21 lorazepam 1 mg tablet mg 11/10/21 omeprazole 40 mg capsule,delayed mg 07/05/22 release sertraline 25 mg tablet mg 11/10/21 tamsulosin 0.4 mg capsule mg PO 11/10/21 temazepam 15 mg capsule mg 11/10/21 Allergies Allergy/AdvReac Type Severity Reaction Status Date / Time amlodipine Allergy Unknown Verified 03/23/22 06:06 atorvastatin Allergy Unknown Verified 03/23/22 06:06 atropine Allergy Unknown Verified 03/23/22 06:06 ciprofloxacin Allergy Unknown Verified 03/23/22 06:06 cyclobenzaprine Allergy Unknown Verified 03/23/22 06:06 doxycycline Allergy Unknown Verified 03/23/22 06:06 hydrochlorothiazide Allergy Unknown Verified 03/23/22 06:06 ibuprofen [From Motrin] Allergy Unknown Verified 03/23/22 06:06 labetalol Allergy Unknown Verified 03/23/22 06:06 phenol Allergy Unknown Verified 03/23/22 06:06 Sulfa (Sulfonamide Allergy Unknown Verified 03/23/22 06:06 Antibiotics) trazodone Allergy Unknown Verified 03/23/22 06:06 glycerine Allergy Unknown Uncoded 03/23/22 06:06 high cosamin Allergy Unknown Uncoded 03/23/22 06:06 Review of Systems Status of ROS: Reports: 10 or more systems reviewed and unremarkable except as noted in History and below Const: Denies: fever, chills or fatigue Eyes: Denies: change in vision or blurry vision ENMT: Denies: throat pain, neck pain, throat swelling, hoarseness or vertigo Cardio: Reports: swelling of feet/ankles (Slight); Denies: chest pain, palpitations or shortness of breath with exertion Resp: Denies: shortness of breath or cough GI: Denies: abdominal pain, nausea or vomiting : Denies: painful urination or urinary frequency Musculo: Reports: extremity pain (Left hip); Denies: back pain or neck pain Neuro: Reports: weakness in extremities; Denies: headache, dizziness or vertigo Endo: Denies: fatigue Allergy/Immuno: Denies: throat swelling PFSH PFS Medical History 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) Diverticulosis ?K57.90 - Diverticulosis of intestine, part unspecified, without perforation or abscess without bleeding (ICD-10) Hernia ?K46.9 - Unspecified abdominal hernia without obstruction or gangrene (ICD-10) History of basal cell cancer ?Z85.828 - Personal history of other malignant neoplasm of skin (ICD-10) Hypertension ?I10 - Essential (primary) hypertension (ICD-10) Lumbago ?M54.50 - Low back pain, unspecified (ICD-10) Osteopenia ?M85.80 - Other specified disorders of bone density and structure, unspecified site (ICD-10) Rectocele ?N81.6 - Rectocele (ICD-10) 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 - Arthralgia of temporomandibular joint, unspecified side (ICD-10) UTI (urinary tract infection) ?N39.0 - Urinary tract infection, site not specified (ICD-10) Surgical History H/O: hysterectomy ?Z90.710 - Acquired absence of both cervix and uterus (ICD-10) History of appendectomy ?Z90.49 - Acquired absence of other specified parts of digestive tract (ICD-10) History of bladder suspension procedure ?Z98.890 - Other specified postprocedural states (ICD-10) ?Z87.448 - Personal history of other diseases of urinary system (ICD-10) History of hemorrhoidectomy ?Z98.890 - Other specified postprocedural states (ICD-10) History of sacrocolpopexy ?Z98.890 - Other specified postprocedural states (ICD-10) S/P MULU (total abdominal hysterectomy) ?Z90.710 - Acquired absence of both cervix and uterus (ICD-10) Social History Smoking Status: Former smoker Do you use any of these nicotine containing products: None Second hand tobacco smoke exposure: No How often do you have a drink containing alcohol: never How often do you have six or more drinks on one occasion: Never AUDIT-C Alcohol total score: 0 Non-prescribed substance use: denies use service: No Exam Narrative: Exam Narrative: Alert and oriented. She is not in any acute distress and is quite talkative. EOM is full. She has a small bump on the left posterior parietal scalp. No compromise of the skin. No step-offs palpated. She has no midline neck tenderness and is not guarding in neck movement. However, she is under the influence of fentanyl at this time. Seems very happy. Speech is normal. Heart with a bradycardic rate and rhythm and lungs are clear. Abdomen is soft nontender. Pelvis appears stable. She has pain with movement of the left leg. I do not see an external signs of trauma-no ecchymosis or erythema. Pedal pulses are intact bilaterally. Patient appears to have discomfort when trying to lift left leg. Able to move feet and toes bilaterally. Const: Vital Signs, click to edit/add: Vital Signs - 24 hr 08/12/22 07:27 08/12/22 09:14 Temperature 97 F L Pulse Rate [Pulse Oximeter] 57 L 49 L Respiratory Rate 18 18 Blood Pressure [Le ft Upper Arm] 153/67 H 162/69 H Pulse Oximetry 98 96 Oxygen Delivery Me thod Room Air Room Air Documenting provider has reviewed patient's vital signs: yes Course Course Hospital Course: At this time patient thinks that perhaps were her arms were somewhat weak when she was using walker this morning. Fortunately she did not have any loss of consciousness. We will obtain CT of the head, cervical spine and plain x-rays of the hip and pelvis. Will do a blood draw with CBC and basic his I suspect that her hip is fractured. Will keep her NPO at this point. Reevaluation(s) Reevaluation #1: Vital signs have remained stable. EKG is reassuring as are blood results. At this time urinalysis is pending. Patient up to bedside commode without difficulty per nursing staff. Reevaluation #2: Re-examination shows patient has no discomfort with hip flexion internal or external rotation. She further describes a weakness in her arms likely because she was trying to put her tight stockings on. And she was tired. She is complaining now of low back pain but states that is always present. Examination shows no external signs of trauma including absence of ecchymosis and erythema. Palpation shows rather diffuse discomfort across the L5 upper sacral area and to the right upper buttock. She does sit up but winces when this happens. However, again she tells me that this is normal for her. She declines Tylenol at this time. Vital Signs Vital signs: Initial Vital Signs Temperature 97 F L 08/12/22 07:27 Temperature Source Temporal Artery Scan 08/12/22 07:27 Pulse Rate 57 L 08/12/22 07:27 Pulse Rhythm Regular 08/12/22 07:27 Respiratory Rate 18 08/12/22 07:27 Blood Pressure 153/67 H 08/12/22 07:27 Blood Pressure Mean 95 08/12/22 07:27 Blood Pressure Position Supine 08/12/22 07:27 Pulse Oximetry 98 08/12/22 07:27 Oxygen Delivery Method Room Air 08/12/22 07:27 Vital Signs Temperature 97 F L 08/12/22 07:27 Pulse Rate 57 L 08/12/22 07:27 Respiratory Rate 18 08/12/22 07:27 Blood Pressure 153/67 H 08/12/22 07:27 Pulse Oximetry 98 08/12/22 07:27 Oxygen Delivery Method Room Air 08/12/22 07:27 Temperature 97 F L 08/12/22 07:27 Pulse Rate 49 L 08/12/22 09:14 Respiratory Rate 18 08/12/22 09:14 Blood Pressure 162/69 H 08/12/22 09:14 Pulse Oximetry 96 08/12/22 09:14 Oxygen Delivery Method Room Air 08/12/22 09:14 Medical Decision Making MDM Narrative Medical decision making narrative: 1. Fall-patient notes episodes of weakness and think she may have had some weakness in her both arms earlier this morning. She has no weakness in her arms at this time. Upon further discussion she states that her arms are very tired as she had to wrestle with her new stockings that she has been wearing. No neurological deficits at this time. 2. Left hip injury-no evidence of fracture on initial set of x-rays. Patient able to be up to bedside commode without difficulty. Will have her walk in the ER with a walker. 3. Head injury-no evidence of head injury and no LOC. Patient not on anticoagulation. 4. Chronic back pain-no acute evidence of injury. Awaiting official radiological over-read of x-rays which do not appear to show fracture to me. 4. Disposition-home at this time. Tylenol as needed for discomfort. Medical Records Medical records reviewed: Yes I reviewed the patient's medical records Lab Data Lab results reviewed: Yes I reviewed the patient's lab results Lab results narrative: Mild leukopenia otherwise labs reassuring. Labs: Lab Results 08/12/22 08/12/22 08/12/22 Range/Units 07:48 08:02 08:45 WBC 3.57 L (4.50-11.00) K/uL RBC 3.56 L (4.00-5.20) m/uL Hgb 11.4 L (12.0-16.0) gm/dL Hct 34.3 (33.0-51.0) % MCV 96 (80-100) fL MCH 32 (26-34) pg MCHC 33 (32-36) gm/dL RDW Coeff of Isaias 12.3 (11.5-15.5) % Plt Count 209 (140-440) K/uL Neut % (Auto) 67.5 (42.0-72.0) % Lymph % (Auto) 19.6 L (20-44) % [place] % (Auto) 7.8 (0.0-11.0) % Eos % (Auto) 3.1 (0.0-7.0) % Baso % (Auto) 0.6 (0.0-3.0) % Neut # (Auto) 2.40 (1.7-7.0) K/uL Lymph # (Auto) 0.70 L (0.90-2.90) K/uL [place] # (Auto) 0.30 (0.00-0.90) K/UL Eos # (Auto) 0.10 (0.00-0.50) K/uL Baso # (Auto) 0.00 (0.00-0.30) K/uL Sodium 132 L (135-149) mmol/L Potassium 4.1 (3.6-5.1) mmol/L Chloride 99 (96-114) mmol/L Carbon Dioxide 30 (20-32) mmol/L BUN 15 (7-30) mg/dL Creatinine 0.8 (0.5-1.5) mg/dL Estimated Creat Clear 37.01 Estimated GFR 72 ml/min Glucose 92 (60-115) mg/dL Calcium 9.2 (8.4-10.6) mg/dL Urine Color Yellow (Yellow) Urine Appearance Clear (Clear) Urine pH 8.0 (5.0-8.5) Ur Specific [place] 1.015 (1.000-1.030) Urine Protein Negative (Negative) Urine Glucose (UA) Negative (Negative) Urine Ketones Negative (Negative) Urine Blood 1+ A (Negative) Urine Nitrite Negative (Negative) Urine Bilirubin Negative (Negative) Urine Urobilinogen 0.2 (0.2-1.0) Ur Leukocyte Esterase Negative (Negative) Urine RBC 0-2 (0-2) Urine WBC 0-2 (0-5) Ur Squamous Epith Cells None (None-Few) Urine Bacteria None (None) SARS-CoV-2 (PCR) Negative SARS-CoV-2 (Negative) POC Troponin I 0.01 (0.01-0.04) ng/ml Imaging Data Pelvis x-ray: Attestation: I have reviewed the pertinent imaging results. My impression: no obvious fracture Radiologist's impression: Bones: Alignment is normal. No fractures or bone lesions. Joint spaces: Moderate bilateral hip joint space narrowing. Degenerative spondylosis of the lower lumbar spine. Soft tissues: Unremarkable. Impression: No sign of acute injury. CT scan - head: Attestation: I have reviewed the pertinent imaging results. My impression: no obvious fracture or bleed Radiologist's impression: Brain parenchyma and extra-axial spaces: There are nonspecific low attenuation white matter changes consistent with chronic microvascular disease.? No sign of mass, hemorrhage, or midline shift.? Skull base and calvarium: The visualized paranasal sinuses and mastoid air cells demonstrate no acute or significant findings.? The visualized orbits are grossly unremarkable.? No skull fractures. Left occipital scalp contusion. IMPRESSION: No acute or significant findings. Cervical spine CT: Attestation: I have reviewed the pertinent imaging results. My impression: No acute findings Radiologist's impression: Vertebrae: Mild, convex rightward curvature of the cervical spine. Straightening and reversal of the normal cervical lordosis centered at C5. 2 millimeters of C4 anterolisthesis, likely degenerative in nature in the setting of advanced facet arthrosis at this level. Slight anterior height loss at C5 and C6, likely chronic and degenerative nature. No acute appearing fracture. Discs and facet joints: Disc space narrowing at all cervical levels, including severe disc space narrowing at C4-C5, C5-C6 and C6-C7. Multilevel facet arthrosis, including advanced left-sided facet arthrosis at C2-C3, C3-C4 and C4-C5. Extraspinal findings: Paraspinous soft tissues are unremarkable.? IMPRESSION: 1. No acute fracture 2. Advanced multilevel degenerative spondylosis. Reversal of the normal cervical lordosis, slight anterior height loss at C5 and C6 and trace C4 anterolisthesis is likely degenerative in nature. ECG Data Attestation: I personally reviewed and interpreted this ECG as follows: Prior ECG tracings: available for review Interpretation: EKG by my read shows sinus bradycardia at a rate of 53. I do not note any acute ST or T-wave changes. Discharge Plan Discharge Clinical Impression: Head injury due to trauma, Fall, Chronic bilateral low back pain Patient Disposition: Home, Self-Care Condition: Improved Additional Instructions: Tylenol as needed for discomfort Follow up as needed for increasing symptoms Prescriptions: No Action ketotifen fumarate [Zaditor] 0.025 % (0.035 %) drops OPHTHALMIC (EYE) Patient Comments: USE 1 DROP IN AFFECTED EYE/EYES NEEDED TWICE DAILY. amlodipine 2.5 mg tablet Patient Comments: TAKE ONE TABLET BY MOUTH ONCE DAILY omeprazole 40 mg capsule,delayed release(DR/EC) Patient Comments: TAKE 1 CAPSULE BY MOUTH EVERY DAY BEFORE A MEAL. DO NOT CRUSH OR CHEW temazepam 15 mg capsule Patient Comments: TAKE 1 CAPSULE (15 MG) BY MOUTH AT BEDTIME IF NEEDED FOR SLEEP. DO NOT TAKE LORAZEPAM WITHIN 6 HOURS ON FRONT OR BACK END OF THIS MED. tamsulosin 0.4 mg capsule PO Patient Comments: TAKE 1 CAPSULE (0.4 MG) BY MOUTH ONCE DAILY AFTER A MEAL. levothyroxine 50 mcg tablet Patient Comments: TAKE ONE TABLET BY MOUTH BEFORE BREAKFAST gabapentin 300 mg capsule Patient Comments: TAKE ONE CAPSULE BY MOUTH EVERY MORNING THEN 2 CAPSULES AT AT NOON AND 3 CAPSULES AT BEDTIME sertraline 25 mg tablet Patient Comments: TAKE 1 TABLET (25 MG) BY MOUTH EVERY MORNING. lorazepam 1 mg tablet Patient Comments: TAKE 1 TABLET (1 MG) BY MOUTH 2 TIMES DAILY. lisinopril 40 mg tablet Patient Comments: TAKE 1 TABLET (40 MG) BY MOUTH ONCE DAILY. Follow Up/Referrals: Daisy Carpenter DO [Primary Care Provider] - Stand Alone Forms: [employer] Info Instructions
--- NOTE | 2022-08-12 07:48 | CRLHL7_ITS ---
For Patients: As a result of the Cures Act, medical imaging exams and procedure reports are released immediately into your electronic medical record. You may view this report before your referring provider. If you have questions, please contact your health care provider. Indication: Trauma. Technique: One-view pelvis. Two views left hip. Comparison: None. Findings: Bones: Alignment is normal. No fractures or bone lesions. Joint spaces: Moderate bilateral hip joint space narrowing. Degenerative spondylosis of the lower lumbar spine. Soft tissues: Unremarkable. Impression: No sign of acute injury. Dictated by Trae Ngo MD @ 08/12/2022 9:16:49 AM (Electronically Signed)
--- NOTE | 2022-08-12 07:49 | CRLHL7_ITS ---
For Patients: As a result of the Century Cures Act, medical imaging exams and procedure reports are released immediately into your electronic medical record. You may view this report before your referring provider. If you have questions, please contact your health care provider. INDICATION: Fall. TECHNIQUE: Head CT without contrast. COMPARISON: 08/02/2022. FINDINGS: CSF spaces: Within normal limits for age. Brain parenchyma and extra-axial spaces: There are nonspecific low attenuation white matter changes consistent with chronic microvascular disease. No sign of mass, hemorrhage, or midline shift. Skull base and calvarium: The visualized paranasal sinuses and mastoid air cells demonstrate no acute or significant findings. The visualized orbits are grossly unremarkable. No skull fractures. Left occipital scalp contusion. IMPRESSION: No acute or significant findings. Please note that all CT scans at this facility use dose modulation, iterative reconstruction, and/or weight-based dosing when appropriate to reduce radiation dose to as low as reasonably achievable. Dictated by Trae Ngo MD @ 08/12/2022 9:02:38 AM (Electronically Signed)
--- NOTE | 2022-08-12 07:49 | CRLHL7_ITS ---
For Patients: As a result of the Century Cures Act, medical imaging exams and procedure reports are released immediately into your electronic medical record. You may view this report before your referring provider. If you have questions, please contact your health care provider. INDICATION: Trauma. TECHNIQUE: CT cervical spine without contrast. COMPARISON: None. FINDINGS: Vertebrae: Mild, convex rightward curvature of the cervical spine. Straightening and reversal of the normal cervical lordosis centered at C5. 2 millimeters of C4 anterolisthesis, likely degenerative in nature in the setting of advanced facet arthrosis at this level. Slight anterior height loss at C5 and C6, likely chronic and degenerative nature. No acute appearing fracture. Discs and facet joints: Disc space narrowing at all cervical levels, including severe disc space narrowing at C4-C5, C5-C6 and C6-C7. Multilevel facet arthrosis, including advanced left-sided facet arthrosis at C2-C3, C3-C4 and C4-C5. Extraspinal findings: Paraspinous soft tissues are unremarkable. IMPRESSION: 1. No acute fracture 2. Advanced multilevel degenerative spondylosis. Reversal of the normal cervical lordosis, slight anterior height loss at C5 and C6 and trace C4 anterolisthesis is likely degenerative in nature. Please note that all CT scans at this facility use dose modulation, iterative reconstruction, and/or weight-based dosing when appropriate to reduce radiation dose to as low as reasonably achievable. Dictated by Trae Ngo MD @ 08/12/2022 9:13:35 AM (Electronically Signed)
[2022-08-12 08:21] LABS: Basophils Percent Auto 0.6 % (0.0-3.0); Eosinophils Percent Auto 3.1 % (0.0-7.0); Hematocrit 34.3 % (33.0-51.0); Hemoglobin* 11.4 gm/dL (12.0-16.0); Immature Granulocytes Pct Auto 1.4 %; Lymphocytes Percent Auto 19.6 % (20-44); Mean Corpuscular HGB Conc 33 gm/dL (32-36); Mean Corpuscular Hemoglobin 32 pg (26-34); Mean Corpuscular Volume 96 fL (80-100); Monocytes Percent Auto 7.8 % (0.0-11.0); Neutrophils Percent Auto 67.5 % (42.0-72.0); Platelet Count* 209 K/uL (140-440); RDW Coefficient of Variation % 12.3 % (11.5-15.5); Red Blood Count 3.56 m/uL (4.00-5.20); White Blood Count* 3.57 K/uL (4.50-11.00)
[2022-08-12 08:23] LABS: Troponin, Point-of-Care* 0.01 ng/ml (0.01-0.04)
[2022-08-12 08:29] LABS: Slide Review Reflex No
[2022-08-12 08:33] LABS: Chloride* 99 mmol/L (96-114); Potassium* 4.1 mmol/L (3.6-5.1); Sodium* 132 mmol/L (135-149)
[2022-08-12 08:36] LABS: Creatinine* 0.8 mg/dL (0.5-1.5); Est. Creatinine Clearance* 37.01; Estimated Glomerular Filt Rate 72 ml/min
[2022-08-12 08:37] LABS: Blood Urea Nitrogen* 15 mg/dL (7-30); Calcium* 9.2 mg/dL (8.4-10.6); Carbon Dioxide* 30 mmol/L (20-32); Glucose* 92 mg/dL (60-115)
--- OUTSIDE RECORDS SUMMARY | 2022-08-12 08:42 | XMS_ITS | Continuity of Care Document ---
Author Name Unknown Organization [facility] Address [address] [address] Phone Care Team Providers Care Client Project Coordinator Name Role Phone Mark Marie OD Unavailable Unavailable Advance Directives Directive Yes / No Effective Date File Name No Information Encounters Encounter Description Practice Location Reason(s) For Visit Diagnoses Date Provider Providers Copied on Encounter [facility], [address], [place], [id number], tel:[phone] [place] [address] No Information Frank Flores. [address], [place], [id number], [place]. tel:[phone] Referring Provider: Mark Sesay, [address] [place] [address], [id number]. tel:[phone] Family History Family Member Type Diagnosis Age [...]
--- NOTE | 2022-08-12 08:50 | ED.NURSE ---
Pt able to transfer to [facility] with assist of 1. UA collected and sent to lab.
[2022-08-12 08:54] LABS: Appearance Urine Clear (Clear); Bilirubin Urine Negative (Negative); Blood Urine 1+ (Negative); Color Urine Yellow (Yellow); Glucose Urine Negative (Negative); Ketones Urine Negative (Negative); Leukocyte Esterase Urine Negative (Negative); Nitrite Urine Negative (Negative); Protein Urine Negative (Negative); Specific Gravity Urine 1.015 (1.000-1.030); Urobilinogen Urine 0.2 (0.2-1.0)
[2022-08-12 08:58] LABS: SARS PCR* Negative SARS-CoV-2 (Negative)
--- NOTE | 2022-08-12 08:58 | CRLHL7_ITS ---
For Patients: As a result of the Century Cures Act, medical imaging exams and procedure reports are released immediately into your electronic medical record. You may view this report before your referring provider. If you have questions, please contact your health care provider. INDICATION: Back pain. TECHNIQUE: Lumbar spine 2 view. COMPARISON: CT 12/24/2017. FINDINGS: Bones: 5 [id number], lumbar type vertebral bodies. Moderate convex rightward curvature lumbar spine centered at L3. Posterior spinal alignment anatomic. No fracture prevertebral body heights preserved. Joints: Disc space narrowing at all lumbar levels, including moderate/severe disc space narrowing at L2-L3 and L3-L4 to the left of midline and moderate/severe diffuse disc space narrowing at L4-5. lower lumbar facet arthrosis. Soft tissues: Unremarkable. IMPRESSION: Dextroscoliosis and multilevel degenerative spondylosis. Findings h are very similar compared to the CT performed in December 2017, without significant progression. Dictated by Trae Ngo MD @ 08/12/2022 9:59:04 AM (Electronically Signed)
[2022-08-12 09:08] LABS: RBC Urine 0-2 (0-2); WBC Urine 0-2 (0-5)
[2022-08-12] MEDS: ACETAMINOPHEN 500 MG TABLET 1000 MG PO (09:11)
[2022-08-12 09:14] VITALS: BP 162/69; PULSE 49; RESP 18; O2SAT 96
[2022-08-12 09:30] VITALS: BP 154/71; PULSE 49; O2SAT 100
--- NOTE | 2022-08-12 10:10 | ED.NURSE ---
ambulated around unit- was able to do with minimal assistance and walker. Did complain of back pain and stated I am just not sure if i am ready to go home. notified.
== END 2022-08-12 11:00 | disposition home or self-care (01) ==
PROVIDERS: Emergency Provider Family Medicine; PCP Family Medicine
DX: M25.552 Pain in left hip (principal); S09.90XA Unspecified injury of head, initial encounter; M54.9 Dorsalgia, unspecified; W01.0XXA Fall on same level from slipping, tripping and stumbling without subsequent striking against object, initial encounter
CPT/HCPCS: 36415; 70450; 72100; 72125; 73502; 80048; 81001; 84484; 85025; 87635; 93005; 99284; 99285; A9270

== ENCOUNTER 2023-02-19 12:04 | Outpatient (CLI) | payer MEDICARE, BC, SELFPAY ==
--- OUTSIDE RECORDS SUMMARY | 2023-02-21 09:17 | XMS_ITS | Continuity of Care Document ---
Author Name Unknown Organization [facility] Address [address], [place] [address] Phone Care Team Providers Care Elephant Tamer Name Role Phone Mark Marie OD Unavailable Unavailable Advance Directives Directive Yes / No Effective Date File Name No Information Encounters Encounter Description Practice Location Reason(s) For Visit Diagnoses Date Provider Providers Copied on Encounter [facility], [address], [place], [id number], tel:[phone] [place] [address] No Information Frank Flores. [address], [place], [id number], [place]. tel:[phone] Referring Provider: Mark Sesay, [address] [place] [address], [address]. tel:[phone] Family History Family Member Type Diagnosis Age At Onset No Information Payers Payer name Insurance type Covered green party ID Authoriza tion(s) No Information Social History Type Description Quantity Date Captured Comments Sex Female Smoking Status No Information Chief Complaint And Reason For Visit No Information Reason For Referral Reason For Referral No Information History Of Present Illness Encounter Date Complaint History Of Prese nt Illness No Information Functional Status Date Functional Assessmen t No Information Instructions Date Instruction Additional Infor mation No Information Assessments Type Assessment Date No Information Patient Care Teams Name Effective Dates (start - stop) Status Members No Information
== END 2023-02-19 12:05 | disposition home or self-care (01) ==
LOC: NFLDREF 02-21 09:16
PROVIDERS: PCP Family Medicine; Referring Provider Family Medicine; Visit Provider Physician Assistant
DX: R35.0 Frequency of micturition (principal); N39.0 Urinary tract infection, site not specified
CPT/HCPCS: 87086

== ENCOUNTER 2024-01-18 11:05 | Outpatient (CLI) | payer MEDICARE, BC, SELFPAY ==
--- OUTSIDE RECORDS SUMMARY | 2024-01-20 07:21 | XMS_ITS | Data Portability ---
Author Organization [facility], [facility] Address [address] [place] [address] Assessment No assessment recorded. Plan of Treatment Reminders Order Date Submit Date Provider Last Modified By Organization Details Last Modified Time Details Appointments None record ed. Lab None record ed. Referral None record ed. Procedures None record ed. Surgeries None record ed. Imaging None record ed. Medication Orders None record ed. Patient TargetsNo targets recorded. Patient Instructions Encounter Date Encounter Id Patient Instructions Last Modified By Organization Details Last Modified Time 12/13/2019 RTC to review results with provider [email or web address] Not available 12/13/2019 11:09:43 Reason for Referral None Reported. Results Created Date Observation Date Name Description Value Unit Range Abnormal Flag Note LastModifiedBy Organization Detail LastModifiedTime Result Notes None recorded. 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 Procedures Surgical History Date Name Laterality Status Provider Name and Address Organization Details Recorded Time 0 Urethral Catheter Change completed Junichristiano pompa [facility] 12/13/2019 11:10:34 0 Urodynamic Studies completed Junichristiano pompa [facility] 12/13/2019 11:09:26 Imaging Results None recorded. Procedure Notes None recorded. Medical Equipment None Reported. Allergies Allergen ID Allergen Name Allergen Category Reaction Reaction Severity Criticality Documentation Date Start Date Code Code System Note Provider Name and Address Organization Details Recorded Time 926487 sulfameth oxazole / trimethop rim medicatio n hives Not available Not available 10/25/20192015 96342 RxNorm Not Available [facility] 0 00:47:29 116596 nitrofura ntoin medicatio n diarrhea Not available Not available 07/15/20202020 7454 RxNorm Aaliyah Hardy peña [facility] 1 10:20:06 639256 cephalexi n medicatio n itching Not available Not available 10/29/[address] [facility] 1 10:21:51 084091 Cipro medicatio n Not available Not available Not available 10/29/2020 [address] [facility] 1 10:22:04 152479 cyclobenz aprine medicatio n dizziness itching Not available Not available Not available 10/29/2020 17016 RxNorm GI UPSET Pamela pompa [facility] 1 10:22:49 426154 doxycycli ne Not available Not available Not available Not available 10/29/2020 3640 RxNorm INTOL ERANC E Pamela pompa [facility] 1 10:23:36 680061 hydrochlo rothiazid e medicatio n Not available Not available Not available 10/29/[address] [facility] 10:24:13 392084 hyoscyami ne medicatio n Not available Not available Not available 10/29/2020 82554 0 RxNorm Urina ry reten tion Pamela pompa, [facility] 10:24:54 824639 labetalol medicatio n Not available Not available Not available 10/29/2020 6185 RxNorm Pamela pompa, [facility] 10:25:05 121412 Lipitor medicatio n Not available Not available Not available 10/29/2020 72739 5 RxNorm Also [facility] 10:25:29 997759 mirtazapi ne medicatio n Not available Not available Not available 10/29/2020 18443 RxNorm Pamela pompa, [facility] 10:25:50 818114 tramadol medicatio n Not available Not available Not available 10/29/2020 66419 RxNorm Pamela pompa, [facility] 10:25:58 625582 trazodone medicatio n Not available Not available Not available 10/29/2020 77246 RxNorm Pamela pompa, [facility] 10:26:08 Medications Name Sig Start Date Stop Date Status Note LastModified by Organization Details LastModified Time nitrofuranto in macrocrystal 50 mg capsule TAKE 1 CAPSULE BY MOUTH ONCE DAILY. GENERIC EQUIVALENT FOR MACRODANTIN active Not Available Not Available Not Available ketotifen 0.025 % (0.035 %) eye drops active Not Available Not Available No t Available cephalexin 250 mg capsule TAKE ONE CAPSULE BY MOUTH EVERY 24 HOURS active Not Available Not Available No t Available minocycline 100 mg capsule active Not Available Not Available Not Available amlodipine 2.5 mg tablet TAKE 1 TABLET BY MOUTH EVERY DAY active Not Available Not Available No t Available ciprofloxaci n 250 mg tablet active Not Available Not Available Not Available levofloxacin 250 mg tablet active Not Available Not Available Not Available amlodipine 5 mg tablet active Not Available Not Available No t Available ciprofloxaci n 500 mg tablet TK 1 T PO BID FOR 7 DAYS active Not Available Not Available No t Available omeprazole 40 mg capsule,fly yed release TAKE ONE CAPSULE BY MOUTH EVERY DAY BEFORE A MEAL. DO NOT CRUSH OR CHEW active Not Available Not Available No t Available levothyroxin e 75 mcg tablet active Not Available Not Available Not Available cefadroxil 500 mg capsule active Not Available Not Available Not Available doxycycline monohydrate 50 mg capsule active Not Available Not Available Not Available tamsulosin 0.4 mg capsule TAKE ONE CAPSULE BY MOUTH ONCE DAILY AFTER A MEAL active Not Available Not Available No t Available phenazopyrid ine 100 mg tablet TAKE TWO TABLETS(200 MG) BY MOUTH THREE TIMES DAILY NEEDED active Not Available Not Available No t Available doxycycline monohydrate 100 mg capsule active Not Available Not Available Not Available levothyroxin e 50 mcg tablet TAKE 1 TABLET BY MOUTH BEFORE BREAKFAST active Not Available Not Available No t Available cephalexin 500 mg capsule active Not Available Not Available Not Available triamcinolon e acetonide 0.1 % topical ointment APPLY TOPICALLY TO THE AFFECTED AREA THREE TIMES DAILY active Not Available Not Available Not Available gabapentin 300 mg capsule TK ONE C PO QAM THEN ONE C AT NOON AND TWO CS HS active Not Available Not Available No t Available mupirocin 2 % topical ointment APPLY TO AFFECTED SITE DAILY FOR 2 WEEKS active Not Available Not Available Not Available lorazepam 1 mg tablet TAKE 1 TABLET BY MOUTH 2 TIMES DAILY active Not Available Not Available Not Available oxybutynin chloride 5 mg tablet active Not Available Not Available No t Available lisinopril 40 mg tablet TAKE 1 TABLET BY MOUTH ONCE DAILY active Not Available Not Available No t Available cefdinir 300 mg capsule active Not Available Not Available N ot Available Senna Plus 8.6 mg-50 mg tablet active Not Available Not Available Not Available Shingrix (PF) 50 mcg/0.5 mL intramuscula r suspension, kit active Not Available Not Available Not Available Vitals Date Recorded Body height Body mass index (BMI) Body weight Respiratory rate Provider Name and Address Organization Details Last Updated DateTime 12/13/2019 165.1 cm 20.6 kg/m2 94558.45 g 12 /min Juni Rodriges [facility] 12/13/2019 11:07:50 Social History None recorded. Functional Status None recorded. Mental Status None recorded. Family History Nothing Reported. Medical History No medical history recorded. Gynecological HistoryNo gynecological history recorded. Obstetrics History GPAL:G 0 P 0 0 0 0 Past Encounters Encounter ID Performer Location Encounter Start Date Encounter Closed Date Diagnosis/Indication Diagnosis SNOMED-CT Code Diagnosis ICD10 Code [id number] Laureano Miner MD [facility] [address] [place] [address] 12/13/2019 09:09:56 12/13/2019 13:47:02 Retention of urine 169589209 R33.9 Incomplete emptying of urinary bladder 393454315 R39.14 Health Concerns Section Related Observation LastModified by Organization Detai ls LastModified Time None Recorded Concern Status LastModified by Organization Details LastModified Time None Recorded Advance Directives Directive None Recorded Payers Encounter Date Sequence Insurance Name Policy Number Policy Hernandez Covered Member ID Hernandez Member ID Guarantor Name 12/13/2019 1 [employer] [employer] [place] COST [id number] Cary Chanel [id number] Cary Chanel OBGyn Episode No OBEpisode recorded.
--- OUTSIDE RECORDS SUMMARY | 2024-01-20 07:21 | XMS_ITS | Clinical Summary ---
Author Organization [employer] [facility] Address [place], [place] [address] Care Team Providers Care Flat Locker Name Role Phone Miguel ÁngeltDaisy DO Primary Care Provider [facility] Care, Bjorn Unavailable Allergies Active Allergy Reactions [...] Date Type Department Care Team Description 01/18/2024 Orders Only [facility] Scanner 1 scan: (1-Ord) [facility], XR CHEST , 01/18/2024 01/18/2024 Orders Only [facility] Scanner 1 scan: (1-Ord) [facility], CT HEAD/BRAIN, 01/18/2024 01/18/2024 Nurse Triage [facility] [address] [place] [address] Daisy Carpenter, Blood Pressure; Dizziness 12/20/2023 8:40 AM CDT Office Visit [facility] [address] [place] [address] Maribel Kumar PA UTI 12/20/2023 Travel 11/30/2023 Refill [facility] [address] [place] [address] Daisy Carpenter DO Refill Request (Omeprazole, Tamsulosin, [...] Years) 6 Tdap 05/04/2012,09/06/2007 Zoster (Shingrix-RZV, recombinant) 02/28/2019, Zoster (Zostavax-ZVL, live) 02/28/2009 Family History Medical [...] 165.1 cm (5' 5) 06/02/2022 9:31 AM ACCOUNT RESOLUTION SPECIALIST Body Mass Index 23.23 06/02/2022 9:31 AM ACCOUNT RESOLUTION SPECIALIST Plan of Treatment Health Maintenance Due [...] or Completed 04/20/2023 COVID-19 vaccine series Completed 08/18/19 24, 02/21/2023, 11/11/2022, Additional history exists Procedures Procedure Name Priority Date/Time Associated Diagnosis Comments SCAN-RADIOLOGY REPORT 01/18/2024 12:00 AM CDT SCAN-CT INTERPRETATION 12:00 AM CDT URINE CULTURE Add On 12/20/2023 8:44 AM CDT Lower urinary tract symptoms (LUTS) URINALYSIS MICROSCOPIC Routine 8:44 AM CDT Lower urinary tract symptoms (LUTS) UA W/ SEDIMENT EXAM REFLEXED PER CRITERIA Routine 12/20/2023 8:44 AM CDT Lower urinary tract symptoms (LUTS) XR DXA BONE DENSITY 2 SITES AXIAL Routine 05/27/2016 10:47 AM ACCOUNT RESOLUTION SPECIALIST Osteoporosis from Last 3 Months or Most Recently Relevant to Health Maintenance Results * SCAN-RADIOLOGY REPORT (01/18/2024 12:00 AM CDT) Anatomical Region Laterality Modality Other Scanner OTHER * SCAN-CT INTERPRETATION (01/18/2024 12:00 AM CDT) Anatomical Region Laterality Modality Other Scanner OTHER * (ABNORMAL) URINALYSIS MICROSCOPIC (12/20/2023 8:44 AM CDT) RBC 3-5(A) 0-2, None Seen /HPF 12/20/2023 9:04 AM CDT [facility] [email or web address]] WBC 0-2 0-2, 3-5, None Seen /HPF 12/20/2023 9:04 AM CDT [facility] [email or web address]] BACTERIA Few None Seen, Rare, Few Bacteria/H PF 12/20/2023 9:04 AM CDT [facility] [email or web address]] EPITHELIAL CELLS Few None Seen, Few Epi/HPF 12/20/2023 9:04 AM CDT [facility] [email or web address]] Urine URINE SPECIMEN / Unknown Non-Blood / Unknown 12/20/2023 8:44 AM CDT 12/20/2023 8:55 AM CDT Maribel CONWAY URINE [facility] [[email or web address]] [address] [place] [address], * URINE CULTURE (12/20/2023 8:44 AM CDT) CULTURE No growth (<1,000 CFU/mL) 12/21/2023 1:39 PM CDT [facility] Urine URINE SPECIMEN / Unknown Non-Blood / Unknown 12/20/2023 8:44 AM CDT 12/20/2023 8:55 AM CDT Maribel CONWAY MICROBIOLOGY [facility] [address] [place] [address], [place] * (ABNORMAL) UA W/ SEDIMENT EXAM REFLEXED PER CRITERIA (12/20/2023 8:44 AM CDT) COLOR Yellow Yellow Color 12/20/2023 9:03 AM CDT [facility] [email or web address]] CLARITY Clear Clear Clarity 12/20/2023 9:03 AM CDT [facility] [[email or web address]] SPECIFIC GRAVITY,URINE 1.010 1.010, 1.015, 1.020, 1.025 12/20/2023 9:03 AM CDT [facility] [[email or web address]] PH,URINE 6.0 6.0, 7.0, 8.0, 5.5, 6.5, 7.5, 8.5 12/20/2023 9:03 AM CDT [facility] [email or web address]] UROBILINOGEN, QUALITATIVE Normal Normal EU/dl 12/20/2023 9:03 AM CDT [facility] [email or web address]] PROTEIN, URINE Negative Negative mg/dL 12/20/2023 9:03 AM CDT [facility] [[email or web address]] GLUCOSE, URINE Negative Negative mg/dL 12/20/2023 9:03 AM CDT [facility] [email or web address]] KETONES,URINE Negative Negative mg/dL 12/20/2023 9:03 AM CDT [facility] [email or web address]] BILIRUBIN,URI NE Negative Negative 12/20/2023 9:03 AM CDT [facility] [email or web address]] OCCULT BLOOD,URINE Small(A) Negative 12/20/2023 9:03 AM CDT [facility] [email or web address]] NITRITE Negative Negative 12/20/2023 9:03 AM CDT [facility] [email or web address]] LEUKOCYTE ESTERASE Negative Negative 12/20/2023 9:03 AM CDT [facility] [[email or web address]] Urine URINE SPECIMEN / Unknown Non-Blood / Unknown 12/20/2023 8:44 AM CDT 12/20/2023 8:55 AM CDT Maribel CONWAY URINE [facility] [[email or web address]] [address] [place] [address], * (ABNORMAL) XR DXA BONE DENSITY 2 SITES AXIAL (05/27/2016 10:47 AM ACCOUNT RESOLUTION SPECIALIST) Anatomical Region Laterality Modality Spine, HIPS, HIPL, HIPR Other Narrative 05/27/2016 7:18 PM ACCOUNT RESOLUTION SPECIALIST Please see scanned document for results of this study. Kendall Haque MD DEXA from Last 3 Months or Most Recently Relevant to Health Maintenance Advance Directives Documents on File Type Date Recorded Patient Wholesaler Expl anation POLST 05/08/2018 1:18 PM SABRINA IELULU, 04/28/18 Healthcare Directive 09/03/2009 HEALTH CARE DIRECTIVE, [facility], 08/14/09 Care Teams Flat Locker Relationship Specialty Start Date End Date Daisy Carpenter DO [address] [place] [address] PCP - General Family Practice 11/28/17 [place] [id number] [address] [address] 09/06/22
== END 2024-01-18 11:06 | disposition home or self-care (01) ==
LOC: AMB 01-20 07:18
PROVIDERS: PCP Family Medicine; Visit Provider Family Medicine
DX: R53.1 Weakness (principal)
CPT/HCPCS: A0425; A0427

== ENCOUNTER 2024-01-18 11:20 | Emergency (ER) | payer MEDICARE, BC, SELFPAY ==
[2024-01-18 11:30] VITALS: BP 187/79; PULSE 58; RESP 16; TEMP 35.7; O2SAT 99; BMI 22.8
--- NOTE | 2024-01-18 11:50 | CRLHL7_ITS ---
For Patients: As a result of the Century Cures Act, medical imaging exams and procedure reports are released immediately into your electronic medical record. You may view this report before your referring provider. If you have questions, please contact your health care provider. INDICATION: Unsteadiness. Off balance. Leaning to the left. COMPARISON: : August 12, 2022 TECHNIQUE: CT examination of the head was performed as axial sections without intravenous contrast. Images were obtained from the vertex of the skull through the skull base. Please note that all CT scans at this facility use dose modulation, iterative reconstruction, and/or weight-based dosing when appropriate to reduce radiation dose to as low as reasonably achievable. FINDINGS: The brain shows no sign of mass lesion, mass effect, hemorrhage, or edema. There are involutional changes consisting of moderate atrophy and moderate white matter disease. There is global appearance is similar to the prior exam. The visualized portions of the orbits are normal in appearance. The osseous structures are normal in their appearance with no sign of abnormality in the skull base or calvarium. IMPRESSION: Involutional changes consistent with atrophy and white matter disease. No acute appearing finding when compared to August 13, 2019 Please note that all CT scans at this facility use dose modulation, iterative reconstruction, and/or weight-based dosing when appropriate to reduce radiation dose to as low as reasonably achievable. Dictated by Bimal Green MD @ 01/18/2024 12:54:20 PM (Electronically Signed)
--- NOTE | 2024-01-18 11:50 | CRLHL7_ITS ---
For Patients: As a result of the Cures Act, medical imaging exams and procedure reports are released immediately into your electronic medical record. You may view this report before your referring provider. If you have questions, please contact your health care provider. INDICATION: Chest wall pain COMPARISON: February 04, 2010 TECHNIQUE: Single-view upright examination FINDINGS: TUBES AND LINES: None. HEART AND MEDIASTINUM: The heart size is normal. The mediastinal contour appears normal for patient age. LUNGS AND PLEURAL SPACES: The lungs appear normal.The pleural spaces are unremarkable. OSSEOUS STRUCTURES: Demineralized osseous structures and degenerative changes. No visible destructive process of bone on this single view study. There is a relatively severe scoliosis which is new since the prior study. IMPRESSION: No evidence of active pulmonary disease. Demineralized osseous structures but no definite acute chest wall abnormality or visible destructive process of bone on this single view radiograph. There is a relatively severe scoliosis which is new since the prior study. Dictated by Bimal Green MD @ 01/18/2024 12:45:51 PM (Electronically Signed)
--- NOTE | 2024-01-18 12:03 | ED_ITS ---
HPI - General Adult General Chief complaint: Weakness Stated complaint: Weakness Time Seen by Provider: 01/18/24 11:21 History of Present Illness HPI narrative: 88 year white female who lives in [facility], she reports she was walking this morning of a little weak listed little bit the left. Did not have focal neurologic complaints. The spell past. She does have advanced directive. She has had urinary symptoms as well as some right chest wall discomfort that is bothered her. She was concerned about a urinary tract infection she has had this in the past. She has been drinking lot of water recently and was told to cut back on that, she has had increased urinary frequency. No dysuria. No chest pain, no shortness of breath, she has had some mild swelling in her ankles that she is wearing compression stockings for. Related Data Home Medications ?Medication ?Instructions ?Recorded ?Confirmed amlodipine 2.5 mg tablet 2.5 mg PO DAILY 11/10/21 01/18/24 gabapentin 300 mg capsule 300 mg PO .am 11/10/21 01/18/24 ketotifen fumarate 0.025 % (0.035 drp ophthalmic (eye) 11/10/21 02/19/23 %) eye drops (Zaditor) levothyroxine 50 mcg tablet 75 mcg PO DAILY 11/10/21 01/18/24 lisinopril 40 mg tablet 40 mg PO DAILY 11/10/21 01/18/24 tamsulosin 0.4 mg capsule 0.4 mg PO Q24H 11/10/21 01/18/24 carboxymethylcellulose sodium 1 % 1 drp ophthalmic (eye) TID-QID 02/19/23 02/19/23 eye gel in a dropperette (Refresh Celluvisc) lorazepam 1 mg tablet 1 mg PO BID 02/19/23 01/18/24 omeprazole 40 mg capsule,delayed 40 mg PO QDAY 02/19/23 01/18/24 release alpha lipoic acid 300 mg-biotin 1 cap PO DAILY 01/18/24 01/18/24 333 mcg capsule aspirin 81 mg chewable tablet 81 mg PO DAILY 01/18/24 01/18/24 (Aspirin Childrens) Previous Rx's ?Medication ?Instructions ?Recorded fosfomycin tromethamine 3 gram 3 g PO ONCE #1 ea 02/19/23 oral packet Allergies Allergy/AdvReac Type Severity Reaction Status Date / Time atorvastatin Allergy Intermediate leg cramps Verified 01/18/24 11:35 atropine Allergy Unknown Verified 01/18/24 11:35 ciprofloxacin Allergy Unknown Verified 01/18/24 11:35 cyclobenzaprine Allergy Unknown Verified 01/18/24 11:35 doxycycline Allergy Unknown Verified 01/18/24 11:35 hydrochlorothiazide Allergy Unknown Verified 01/18/24 11:35 ibuprofen [From Motrin] Allergy Unknown Verified 01/18/24 11:35 labetalol Allergy Unknown Verified 01/18/24 11:35 phenol Allergy Unknown Verified 01/18/24 11:35 Sulfa (Sulfonamide Allergy Unknown Verified 01/18/24 11:35 Antibiotics) trazodone Allergy Unknown Verified 01/18/24 11:35 glycerine Allergy Unknown Uncoded 02/19/23 12:15 high cosamin Allergy Unknown Uncoded 02/19/23 12:15 Review of Systems Status of ROS: Reports: 6 or more systems reviewed and unremarkable except as noted in History and below PFSH PFSH Medical History POLST (Physician Orders for Life-Sustaining Treatment) ?Z78.9 - Other specified health status (ICD-10) 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 - Arthralgia of temporomandibular joint, unspecified side (ICD-10) Osteopenia ?M85.80 - Other specified disorders of bone density and structure, unspecified site (ICD-10) Lumbago ?M54.50 - Low back pain, unspecified (ICD-10) Diverticulosis ?K57.90 - Diverticulosis of intestine, part unspecified, without perforation or abscess without bleeding (ICD-10) 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) History of basal cell cancer ?Z85.828 - Personal history of other malignant neoplasm of skin (ICD-10) Hernia ?K46.9 - Unspecified abdominal hernia without obstruction or gangrene (ICD- 10) Rectocele ?N81.6 - Rectocele (ICD-10) UTI (urinary tract infection) ?N39.0 - Urinary tract infection, site not specified (ICD-10) Hypertension ?I10 - Essential (primary) hypertension (ICD-10) Surgical History History of sacrocolpopexy ?Z98.890 - Other specified postprocedural states (ICD-10) S/P MULU (total abdominal hysterectomy) ?Z90.710 - Acquired absence of both cervix and uterus (ICD-10) History of hemorrhoidectomy ?Z98.890 - Other specified postprocedural states (ICD-10) History of bladder suspension procedure ?Z98.890 - Other specified postprocedural states (ICD-10) ?Z87.448 - Personal history of other diseases of urinary system (ICD-10) History of appendectomy ?Z90.49 - Acquired absence of other specified parts of digestive tract (ICD- 10) H/O: hysterectomy ?Z90.710 - Acquired absence of both cervix and uterus (ICD-10) Social History Smoking Status: Former smoker Do you use any of these nicotine containing products: None Second hand tobacco smoke exposure: No How often do you have a drink containing alcohol: never How often do you have six or more drinks on one occasion: Never AUDIT-C Alcohol total score: 0 Non-prescribed substance use: denies use service: No Exam Narrative: Exam Narrative: Objective: In general patient is no apparent distress resting comfortably able to sit up easily Vital signs look unremarkable other than slightly hypertensive Alert and orient x3 No facial asymmetry neck is supple chest clear some mild palpable chest wall tenderness posteriorly on the right side but no ecchymoses no swelling no redness no rashes pulses regular occasional ectopic ectopic beat abdomen benign soft extremities showed minimal edema, neurologic nonfocal. This is an upper lower extremities. Const: Vital Signs, click to edit/add: Vital Signs - 24 hr 01/18/24 11:30 01/18/24 12:35 01/18/24 13:00 Temperature 96.3 F L Pulse Rate [Pulse Oximeter] 58 L 56 L Respiratory Rate 16 16 Blood Pressure [Ri ght Upper Arm] 187/79 H 188/74 H 166/66 H Pulse Oximetry 99 98 Oxygen Delivery Me thod Room Air Room Air Course Vital Signs Vital signs: Initial Vital Signs Temperature 96.3 F L 01/18/24 11:30 Temperature Source Temporal Artery Scan 01/18/24 11:30 Pulse Rate 58 L 01/18/24 11:30 Respiratory Rate 16 01/18/24 11:30 Blood Pressure 187/79 H 01/18/24 11:30 Blood Pressure Mean 115 H 01/18/24 11:30 Blood Pressure Position Sitting 01/18/24 11:30 Pulse Oximetry 99 01/18/24 11:30 Oxygen Delivery Method Room Air 01/18/24 11:30 Vital Signs Temperature 96.3 F L 01/18/24 11:30 Pulse Rate 58 L 01/18/24 11:30 Respiratory Rate 16 01/18/24 11:30 Blood Pressure 187/79 H 01/18/24 11:30 Pulse Oximetry 99 01/18/24 11:30 Oxygen Delivery Method Room Air 01/18/24 11:30 Temperature 96.3 F L 01/18/24 11:30 Pulse Rate 56 L 01/18/24 12:35 Respiratory Rate 16 01/18/24 12:35 Blood Pressure 166/66 H 01/18/24 13:00 Pulse Oximetry 98 01/18/24 12:35 Oxygen Delivery Method Room Air 01/18/24 12:35 Medical Decision Making MDM Narrative Medical decision making narrative: [age] female with advanced directive with some urinary symptoms and weakness today. This sounded nonfocal. She had generalized weakness. She will get a CT of her head to make sure she had a stroke, she has also complained of some right-sided chest wall discomfort posteriorly in all get a x-ray of her chest. Will check labs, give her some IV fluid. Disposition pending findings above. check a urinalysis. Addendum 12:55, 01/18/24. Patient's head CT appears negative, chest x-ray shows no acute changes by my read. Her laboratory studies show a white count of 4000, hemoglobin of 12, urinalysis looks unremarkable. Urine culture pending. If her Chem profile looks reassuring I think we can allow her to go home rest light activity fluids and recheck and update primary care in the next 4872 hours, return to ED sooner problems or concerns. 1:16 p.m.: The patient's ER profile came back normal. Recommend observation, light activity, fluids, recheck with regular doctor next couple of days, return to ED sooner problems or concerns. Lab Data Labs: Lab Results 01/18/24 01/18/24 Range/Units 12:00 12:32 WBC 4.06 L (4.50-11.00) K/uL RBC 3.72 L (4.00-5.20) m/uL Hgb 12.1 (12.0-16.0) gm/dL Hct 36.6 (33.0-51.0) % MCV 98 (80-100) fL MCH 33 (26-34) pg MCHC 33 (32-36) gm/dL RDW Coeff of Isaias 12.2 (11.5-15.5) % Plt Count 247 (140-440) K/uL Neut % (Auto) 62.9 (42.0-72.0) % Lymph % (Auto) 24.6 (20-44) % Hendricks % (Auto) 7.9 (0.0-11.0) % Eos % (Auto) 3.4 (0.0-7.0) % Baso % (Auto) 0.5 (0.0-3.0) % Neut # (Auto) 2.60 (1.7-7.0) K/uL Lymph # (Auto) 1.00 (0.90-2.90) K/uL Hendricks # (Auto) 0.30 (0.00-0.90) K/UL Eos # (Auto) 0.10 (0.00-0.50) K/uL Baso # (Auto) 0.00 (0.00-0.30) K/uL Abs Immat Gran (auto) 0.00 (0.00-0.30) K/uL Imm/Tot Granulo (auto) 0.7 % Sodium 135 (135-149) mmol/L Potassium 4.1 (3.6-5.1) mmol/L Chloride 99 (96-114) mmol/L Carbon Dioxide 29 (20-32) mmol/L Anion Gap 7 (7-15) mEq/L BUN 20 (7-30) mg/dL Creatinine 0.7 (0.5-1.5) mg/dL Estimated Creat Clear 34.87 Estimated GFR 84 ml/min Glucose 99 (60-115) mg/dL Calcium 10.0 (8.4-10.6) mg/dL Urine Color Yellow (Yellow) Urine Appearance Clear (Clear) Urine pH 7.5 (5.0-8.5) Ur Specific [place] 1.010 (1.000-1.030) Urine Protein Negative (Negative) Urine Glucose (UA) Negative (Negative) Urine Ketones Negative (Negative) Urine Blood Trace-intact A (Negative) Urine Nitrite Negative (Negative) Urine Bilirubin Negative (Negative) Urine Urobilinogen 0.2 (0.2-1.0) Ur Leukocyte Esterase 1+ A (Negative) Urine RBC 0-2 (0-2) Urine WBC 0-2 (0-5) Ur Squamous Epith Cells Few (None-Few) Urine Bacteria Few A (None) Discharge Plan Discharge Clinical Impression: POLST (Physician Orders for Life-Sustaining Treatment), H/O urinary frequency, Weakness Patient Disposition: Home w/ Parent or Adult Condition: Stable Additional Instructions: Light activity, fluids, continue same medications, update your regular doctor next 2-3 days return to the ED sooner problems or concerns. Activity Level: Light activity Discharge Diet: Regular Prescriptions: No Action carboxymethylcellulose sodium [Refresh Celluvisc] 1 % dropperette,gel 1 drp ophthalmic (eye) TID-QID fosfomycin tromethamine 3 gram packet 3 g PO ONCE Qty: 1 0RF ketotifen fumarate [Zaditor] 0.025 % (0.035 %) drops OPHTHALMIC (EYE) Patient Comments: USE 1 DROP IN AFFECTED EYE/EYES NEEDED TWICE DAILY. amlodipine 2.5 mg tablet 2.5 mg PO DAILY Patient Comments: TAKE ONE TABLET BY MOUTH ONCE DAILY tamsulosin 0.4 mg capsule 0.4 mg PO Q24H Patient Comments: TAKE 1 CAPSULE (0.4 MG) BY MOUTH ONCE DAILY AFTER A MEAL. levothyroxine 50 mcg tablet 75 mcg PO DAILY Patient Comments: TAKE ONE TABLET BY MOUTH BEFORE BREAKFAST gabapentin 300 mg capsule 300 mg PO .am Patient Comments: TAKE ONE CAPSULE BY MOUTH EVERY MORNING THEN 2 CAPSULES AT AT NOON AND 3 CAPSULES AT BEDTIME lisinopril 40 mg tablet 40 mg PO DAILY Patient Comments: TAKE 1 TABLET (40 MG) BY MOUTH ONCE DAILY. lorazepam 1 mg tablet 1 mg PO BID Patient Comments: TAKE 1 TABLET (1 MG) BY MOUTH 2 TIMES DAILY. omeprazole 40 mg capsule,delayed release(DR/EC) 40 mg PO QDAY Patient Comments: TAKE 1 CAPSULE BY MOUTH EVERY DAY BEFORE A MEAL. DO NOT CRUSH OR CHEW aspirin [Aspirin Childrens] 81 mg tablet,chewable 81 mg PO DAILY alpha lipoic acid-biotin 300 mg- 333 mcg capsule 1 cap PO DAILY Follow Up/Referrals: Daisy Carpenter DO [Primary Care Provider] - Stand Alone Forms: [facility] Instructions
[2024-01-18 12:08] LABS: Appearance Urine Clear (Clear); Bilirubin Urine Negative (Negative); Blood Urine Trace-intact (Negative); Color Urine Yellow (Yellow); Glucose Urine Negative (Negative); Ketones Urine Negative (Negative); Leukocyte Esterase Urine 1+ (Negative); Nitrite Urine Negative (Negative); Protein Urine Negative (Negative); Urobilinogen Urine 0.2 (0.2-1.0); pH Urine 7.5 (5.0-8.5)
[2024-01-18 12:35] VITALS: BP 188/74; PULSE 56; RESP 16; O2SAT 98
--- OUTSIDE RECORDS SUMMARY | 2024-01-18 12:36 | XMS_ITS | Clinical Summary ---
Author Organization [facility] Address [place], [place] [address] Care Team Providers Care Latin Professor Name Role Phone Miguel ÁngeltDaisy DO Primary Care Provider [facility] Care, Bjorn Unavailable Allergies Active Allergy Reactions Criticality Noted Date Comments Adhesive Other - Describe In Comment Field 02/13/2010 Rash Cephalexin Itching 02/04/2020 Ciprofloxacin Other - Describe In Comment Field 06/28/2020 Cyclobenzaprine Itching,Dizziness ,GI Upset 03/17/2010 Diarrhea/nausea Doxycycline Intolerance-Can't Take 04/22/2020 Hydrochlorothiazide Other - Describe In Comment Field 01/07/2011 Hyponatremia (119). Hyoscyamine Urinary Retention 05/29/2010 Ibuprofen *Unknown 03/23/2022 Labetalol Other - Describe In Comment Field 05/27/2011 dizzy Atorvastatin Other - Describe In Comment Field 03/07/2014 Leg pain Mirtazapine Other - Describe In Comment Field 09/22/2016 Mouth and tongue 'swollen'. Phenol *Unknown 03/23/2022 Sulfa (Sulfonamide Antibiotics) Hives Tramadol Other - Describe In Comment Field 09/24/2015 Leg cramps. Trazodone Other - Describe In Comment Field 02/11/2009 Tinnitus and increased insomnia Medications Medication Sig Dispensed Refills Start Date End Date Status aspirin 81 mg tablet Take 1 tablet by mouth once daily with a meal. 0 10/07/2010 Active multivitamin (MVI) tablet Take 1 tablet by mouth once daily. 0 03/06/2012 Active magnesium citrate 100 mg tab Take 1 Tab by mouth at bedtime. 0 11/28/2017 Active polyethylene glycoL (MIRALAX) 17 gram/dose powder 17g daily. 0 05/17/2018 Active fexofenadine (ROSALVA ALLERGY) 180 mg tablet 01/07/2019 Active vit C/E/zinc ox/lory/lut/zeax (ICAPS AREDS2 ORAL) 12/21/2018 Activ e Walker - 4 wheelsIndications:L umbar degenerative disc disease,Other drug-induced secondary parkinsonism (HC) For home use. Length of need: 99 months Patient has particular request for light weight with 4 wheels. 1 Device 06/09/2020 Active cranberry fruit concentrate (Azo Cranberry) 250 mg chewIndications:Rec urrent UTI Chew 1 Capsule by mouth once daily. 0 12/17/2020 Active acetaminophen (TYLENOL EXTRA STRGTH) 500 mg tablet Take 1,000 mg by mouth every 8 hours if needed for Pain. Max acetaminophen dose: 4000mg in 24 hrs. 0 09/14/2022 Active Refresh Celluvisc 1 % eye gel in dropperette INSTILL 1 DROP INTO LEFT EYE THREE TO FOUR TIMES PER DAY OK TO USE IN RIGHT EYE TOO 03/16/2023 Active Alpha Lipoic Acid 200 mg tabIndications:Adela pheral sensory neuropathy Take 200 mg by mouth two times daily. 180 Tablet 2 04/18/2023 Active amLODIPine (NORVASC) 2.5 mg tabletIndications:E ssential hypertension Take 1 Tablet (2.5 mg) by mouth once daily. 90 Tablet 3 05/12/2023 Active lisinopriL (PRINIVIL; ZESTRIL) 40 mg tabletIndications:E ssential hypertension Take 1 Tablet (40 mg) by mouth once daily. 90 Tablet 3 05/12/2023 Active levothyroxine (SYNTHROID) 75 mcg tabletIndications:O ther specified hypothyroidism Take 1 Tablet (75 mcg) by mouth before breakfast. 90 Tablet 4 05/12/2023 Active azelastine 137 mcg/actuation (ASTELIN) nasal sprayIndications:Po st-nasal drainage Inhale 2 Sprays into affected nostril(s) two times daily. 30 mL 6 08/31/2023 Active gabapentin (NEURONTIN) 300 mg capsuleIndications: Neurodermatitis TAKE ONE CAPSULE BY MOUTH EVERY MORNING THEN 2 CAPSULES AT NOON AND 3 CAPSULES AT BEDTIME 540 Capsule 3 09/08/2023 Active polyethylene glycoL (MIRALAX) 17 gram/scoop powderIndications:C hronic constipation MIX 1 SCOOP (17GM) IN LIQUID THEN TAKE BY MOUTH ONCE DAILY. 1530 g 2 09/13/2023 Active LORazepam (ATIVAN) 1 mg tabletIndications:I nsomnia, unspecified type TAKE 1 TABLET (1 MG) BY MOUTH TWO TIMES DAILY. 180 Tablet 1 12/05/2023 Active omeprazole (PRILOSEC) 40 mg Delayed-Release capsuleIndications: Gastroesophageal reflux disease without esophagitis TAKE 1 CAPSULE BY MOUTH EVERY DAY BEFORE A MEAL. DO NOT CRUSH OR CHEW 90 Capsule 2 12/02/2023 Active tamsulosin (FLOMAX) 0.4 mg capsuleIndications: Incomplete bladder emptying Take 1 Capsule (0.4 mg) by mouth once daily after a meal. 90 Capsule 2 12/02/2023 Active Active Problems Problem Noted Date Diagnosed Date Depression, recurrent 09/07/2022 Assessment & Plan (09/01/2023 2:18 PM CDT): chart update only stable. Daisy Carpenter D.O. 09/01/2023 2:18 PM Assessment & Plan (09/07/2022 10:15 AM CDT): stable. chart update only today. 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 Bones scan 2018 benign. Patient declined MRI Urinary frequency 06/16/2016 Urethral stricture 02/18/2016 Incomplete bladder emptying 08/04/2015 Impaired fasting glucose 02/14/2014 Hyponatremia 11/16/2012 Unspecified symptom associated with female genit al organs 06/05/2012 Unspecified vertiginous synd romes and labyrinthine disorders 04/14/2012 Headache(784.0) 04/14/2012 Subjective tinnitus 04/14/2012 Microhematuria 09/21/2011 Overview (09/21/2011): Present since 2007. 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 Dizziness and giddiness 04/14/201205/09 Hyposmolality and/or hyponatremia 09/16/2011 05/19/2016 Disturbance of skin sensation 02/17/2011 05/19/2016 Routine general medical exam ination at a health care facility 10/31/2007 05/19/2016 Overview (10/31/2007): Lipids - 10/28/06 - cholesterol 134, LDL - 59, TG - 85 Dexa- none found mammo-10/17/07 Colon - 12/04/04 - h/o colon polyp, mild diverticulosis, next due 2009 Pap/pelvic -03/17/01 - nl Thyroid- 10/28/06 - 0.62 Hep B-none found Pneumovax - 10/26/05 Tetanus-10/26/05 Diabetic-no Encounters Date Type Department Care Team Description 01/18/2024 Nurse Triage [facility] [address] [place] [address] Daisy Carpenter DO Blood Pressure; Dizziness 12/20/2023 8:40 AM CDT Office Visit [facility] [address] [place] [address] Maribel Kumar PA UTI 12/20/2023 Travel 11/30/2023 Refill [facility] [address] [place] [address] Daisy Carpenter DO Refill Request (Omeprazole, Tamsulosin, Lorazepam) from Last 3 Months Immunizations Name Administration Dates Next Due AMB Influenza, IIV3 (Age >=3 years) Preserve Free (Flu Clinic Only) 02/15/2012,02/24/2011 AMB Influenza, IIV3 (Age >=3 years)(Flu Clinic Only) 03/29/2008 AMB Influenza, IIV4 PF (=>6 mos Flulaval,Fluzone Fluarix)(Flu Clinic Only) 03/05/2015 COVID-19 vaccine (Moderna 100mcg/0.5mL) PF, MDV 06/18/2020,05/21/2020 COVID-19 vaccine (Moderna Guerrero lei 50mcg/0.25mL) PF, MDV 03/30/2021 DT (Age < 7 years) 10/26/2005 Influenza A (H1N1), Inactiva juliano (Age 6-35 Mos) 04/28/2009 Influenza, High-dose Inactivated 020,02/08/2019,01/09/2019,02/15,02/11/2017,02/11/2017,02/04/2016 ,01/14/2014,01/29/2013 Influenza, High-dose Quadriv alent Inactivated 02/24/2023,02/25/2022,02/23/2021 Influenza, IIV3 (Age >=3 years) 01/20/20 10,01/19/2009,03/08/2007,02/24,02/24/2004 Influenza, Inactivated IIV3 (Age 65+ Years) Preserv Free 02/09/2018 Pneumococcal Poly,23-Valent (Pneumovax) 03/09/2008,10/26/2005 Pneumococcal conj 13-Valent (Prevnar 13) 05/22/2015 RSV, Recombinant ADJ Reconst ituted (Arexvy 120MCG/0.5mL) 04/20/2023 Td (Age >=7 Years) 04/16/2022 Td, Preservative Free (age >= 7 Years) 6 Tdap 05/04/2012,09/06/2007 Zoster (Shingrix-RZV, recombinant) 02/28/2019,08 / Zoster (Zostavax-ZVL, live) 02/28/2009 Family History Medical History Relation Name Comments Anesthesia Problem Neg. Cancer-breast Paternal Aunt Cancer-breast Sister Stroke Sister Relation Name Status Comments Neg. Paternal Aunt Sister Social History Tobacco Use Types Packs/Day Years Used Date Smoking Tobacco: Former Cigarettes 2 30 1 957 - 05/09/1986 Smokeless Tobacco: Never Tobacco Cessation:Counseling Given: Yes Alcohol Use Standard Drinks/Week Comments No 0 (1 standard drink = 0.6 oz pur e alcohol) PHQ-2 Answer Date Recorded PHQ-2 TOTAL SCORE 1 04/18/2023 Social Connections Answer Date Recorded Frequency of Communication with Friends and Fami ly 0 08/31/2023 Financial Resource Strain Answer Date R ecorded Difficulty of Paying Living Expenses 3 08/31/2023 Difficulty of Paying Living Expenses Not on file 08/31/2023 Food Insecurity Answer Date Recorded Worried About Running Out of Food in the Last Ye ar 1 08/31/2023 Transportation Needs Answer Date Record ed Lack of Transportation (Medical) 1 08/31/2023 Housing Stability Answer Date Recorded Unable to Pay for Housing in the Last Year 1 08/31/2023 Sex and Gender Information Value Date Recorded Sex Assigned at Not on file Gender Identity Not on file Sexual Orientation Not on file Obstetrics History Para Term AB IAB SAB Ectopic Multiple Livin g Live Births 2 2 2 Date Outcome GA Total Labor Labor/2nd/3rd Weight Sex Type Anes PTL Dara A1 A5 Name Clin Term Term Last Filed Vital Signs Vital Sign Reading Time Taken Comments Blood Pressure 149/74 12/20/2023 8:56 AM CDT Pulse 62 12/20/2023 8:56 AM CDT Temperature 36.7 ??C (98 ??F) 12/20/2023 8:56 AM CDT Respiratory Rate 16 09/27/2022 9:09 AM CDT Oxygen Saturation 100% 12/20/2023 8:56 AM CDT Inhaled Oxygen Concentration - - Weight 63.3 kg (139 lb 9.6 oz) 12/20/2023 8:56 A M CDT Height 165.1 cm (5' 5) 06/02/2022 9:31 AM [employer] Body Mass Index 23.23 06/02/2022 9:31 AM [employer] Plan of Treatment Health Maintenance Due Date Last Done Comments BMI (ht and wt on same day) for age 18+ 06/02/2023 06/02/2022, 04/09/2021, 04/08/2021, Additional history exists Influenza for age 65+ 01/08/2024 02/24/2023 , 02/25/2022, 02/23/2021, Additional history exists Depression screening for age 12+ 04/18/2024 04/18/2023, 04/16/2022, 04/15/2022, Additional history exists Medicare Wellness for age 65+ 04/18/2024, 04/16/2022, 04/08/2021, Additional history exists Tetanus booster 04/16/2032 04/16/2022, 04/09, 05/04/2012, Additional history exists Tdap Completed 05/04/2012, 09/06/2007 Pneumococcal series for age 65+ Completed 05/22/2015, 03/09/2008, 10/26/2005 DEXA/DXA scan for age 65+ Completed 05/27/2016, 04/2013 Zoster (shingles) series for age 50+ Completed 02/28/2019, 12/27/2018, 02/28/2009 RSV vaccine for adults or Completed 04/20/2023 COVID-19 vaccine series Completed 08/18/19, 02/21/2023, 11/11/2022, Additional history exists Procedures Procedure Name Priority Date/Time Associated Diagnosis Comments URINE CULTURE Add On 12/20/2023 8:44 AM CDT Lower urinary tract symptoms (LUTS) URINALYSIS MICROSCOPIC Routine 12/20/2023 8:44 AM CDT Lower urinary tract symptoms (LUTS) UA W/ SEDIMENT EXAM REFLEXED PER CRITERIA Routine 12/20/2023 8:44 AM CDT Lower urinary tract symptoms (LUTS) XR DXA BONE DENSITY 2 SITES AXIAL Routine 05/27/2016 10:47 AM [employer] Osteoporosis from Last 3 Months or Most Recently Relevant to Health Maintenance Results * (ABNORMAL) URINALYSIS MICROSCOPIC (12/20/2023 8:44 AM CDT) RBC 3-5(A) 0-2, None Seen /HPF 12/20/2023 9:04 AM CDT [facility] WBC 0-2 0-2, 3-5, None Seen /HPF 12/20/2023 9:04 AM CDT [facility] BACTERIA Few None Seen, Rare, Few Bacteria/H PF 12/20/2023 9:04 AM CDT [facility] EPITHELIAL CELLS Few None Seen, Few Epi/HPF 12/20/2023 9:04 AM CDT [facility] Urine URINE SPECIMEN / Unknown Non-Blood / Unknown 12/20/2023 8:44 AM CDT 12/20/2023 8:55 AM CDT Maribel CONWAY URINE [address] [address], * URINE CULTURE (12/20/2023 8:44 AM CDT) CULTURE No growth (<1,000 CFU/mL) 12/21/2023 1:39 PM CDT [facility] Urine URINE SPECIMEN / Unknown Non-Blood / Unknown 12/20/2023 8:44 AM CDT 12/20/2023 8:55 AM CDT Maribel CONWAY [facility]OLOG[facility] [address] [place] [address], [place] * (ABNORMAL) UA W/ SEDIMENT EXAM REFLEXED PER CRITERIA (12/20/2023 8:44 AM CDT) COLOR Yellow Yellow Color 12/20/2023 9:03 AM CDT [facility] CLARITY Clear Clear Clarity 12/20/2023 9:03 AM CDT [facility] SPECIFIC GRAVITY,URINE 1.010 1.010, 1.015, 1.020, 1.025 12/20/2023 9:03 AM CDT [facility] PH,URINE 6.0 6.0, 7.0, 8.0, 5.5, 6.5, 7.5, 8.5 12/20/2023 9:03 AM CDT [facility] UROBILINOGEN, QUALITATIVE Normal Normal EU/dl 12/20/2023 9:03 AM CDT [facility] PROTEIN, URINE Negative Negative mg/dL 12/20/2023 9:03 AM CDT [facility] GLUCOSE, URINE Negative Negative mg/dL 12/20/2023 9:03 AM CDT [facility] KETONES,URINE Negative Negative mg/dL 12/20/2023 9:03 AM CDT [facility] BILIRUBIN,URI NE Negative Negative 12/20/2023 9:03 AM CDT [facility] OCCULT BLOOD,URINE Small(A) Negative 12/20/2023 9:03 AM CDT [facility] NITRITE Negative Negative 12/20/2023 9:03 AM CDT [facility] LEUKOCYTE ESTERASE Negative Negative 12/20/2023 9:03 AM CDT [facility] Urine URINE SPECIMEN / Unknown Non-Blood / Unknown 12/20/2023 8:44 AM CDT 12/20/2023 8:55 AM CDT Maribel CONWAY URINE Performing Organization Address [facility] Co de Phone Number [facility] [address] [place] [address], * (ABNORMAL) XR DXA BONE DENSITY 2 SITES AXIAL (05/27/2016 10:47 AM [employer]) Anatomical Region Laterality Modality Spine, HIPS, HIPL, HIPR Other Narrative 05/27/2016 7:18 PM [employer] Please see scanned document for results of this study. Kendall Haque MD DEXA from Last 3 Months or Most Recently Relevant to Health Maintenance Advance Directives Documents on File Type Date Recorded Patient Laminating Machine Feeder Expl anation POLST 05/08/2018 1:18 PM JORDAN IELD, 04/28/18 Healthcare Directive 09/03/2009 HEALTH CARE DIRECTIVE, [facility], 08/14/09 Care Teams Latin Professor Relationship Specialty Start Date End Date Daisy [place] [address] PCP - General Family Practice 11/28/[address] [address] 09/06/22
[2024-01-18 12:41] LABS: Bacteria Urine Few; RBC Urine 0-2 (0-2); Squamous Epithelial Cell Urine Few (None-Few); WBC Urine 0-2 (0-5)
[2024-01-18 12:47] LABS: Basophils Percent Auto 0.5 % (0.0-3.0); Eosinophils Percent Auto 3.4 % (0.0-7.0); Hematocrit 36.6 % (33.0-51.0); Hemoglobin* 12.1 gm/dL (12.0-16.0); Immature Granulocytes Pct Auto 0.7 %; Lymphocytes Percent Auto 24.6 % (20-44); Mean Corpuscular HGB Conc 33 gm/dL (32-36); Mean Corpuscular Hemoglobin 33 pg (26-34); Mean Corpuscular Volume 98 fL (80-100); Monocytes Percent Auto 7.9 % (0.0-11.0); Neutrophils Percent Auto 62.9 % (42.0-72.0); Platelet Count* 247 K/uL (140-440); RDW Coefficient of Variation % 12.2 % (11.5-15.5); Red Blood Count 3.72 m/uL (4.00-5.20); White Blood Count* 4.06 K/uL (4.50-11.00)
[2024-01-18 12:50] LABS: Slide Review Reflex No
[2024-01-18 13:00] VITALS: BP 166/66
[2024-01-18 13:05] LABS: Chloride* 99 mmol/L (96-114); Potassium* 4.1 mmol/L (3.6-5.1); Sodium* 135 mmol/L (135-149)
[2024-01-18 13:08] LABS: Anion Gap 7 mEq/L (7-15); Blood Urea Nitrogen* 20 mg/dL (7-30); Carbon Dioxide* 29 mmol/L (20-32); Creatinine* 0.7 mg/dL (0.5-1.5); Est. Creatinine Clearance* 34.87; Estimated Glomerular Filt Rate 84 ml/min
[2024-01-18 13:09] LABS: Glucose* 99 mg/dL (60-115)
== END 2024-01-18 13:39 | disposition home or self-care (01) ==
PROVIDERS: Emergency Provider Family Medicine; PCP Family Medicine
DX: R53.1 Weakness (principal); Z76.89 Persons encountering health services in other specified circumstances
CPT/HCPCS: 36415; 70450; 71045; 80048; 81001; 85025; 87086; 99284; 99285

== ENCOUNTER 2024-08-05 08:21 | Outpatient (CLI) | payer MEDICARE, BC, SELFPAY | END 2024-08-05 08:22 | disposition home or self-care (01) | PROVIDERS: PCP Family Medicine; Visit Provider Internal Medicine | DX: M79.662 Pain in left lower leg (principal) | CPT/HCPCS: A0425; A0427 ==

== ENCOUNTER 2024-08-05 09:11 | Emergency (ER) | payer MEDICARE, BC, SELFPAY ==
--- OUTSIDE RECORDS SUMMARY | 2024-08-05 09:01 | XMS_ITS | Clinical Summary ---
Author Organization [facility] Address [address] [place] [id number] Care Team Providers Care Construction Person Name Role Phone Daisy Carpenter DO Primary Care Provider [facility] [place] Unavailable Allergies Active Allergy Reactions Criticality Noted [...] Field 02/11/2009 Tinnitus and increased insomnia Medications aspirin 81 mg tablet Take 1 tablet by mouth once daily with a meal. 0 1 Active multivitamin (MVI) tablet Take 1 tablet by mouth once daily. 0 2 Active magnesium citrate 100 mg tab Take 1 Tab by mouth at bedtime. 0 8 Active vit C/E/zinc ox/lory/lut/zeax (ICAPS AREDS2 ORAL) 9 Active Walker - 4 wheelsIndications :Lumbar degenerative disc disease,Other drug-induced secondary parkinsonism (HC) For home use. Length of need: 99 months Patient has particular request for light weight with 4 wheels. 1 Device 1 Active cranberry fruit concentrate (Azo Cranberry) 250 mg chewIndications:R ecurrent UTI Chew 1 Capsule by mouth once daily. 0 1 Active Alpha Lipoic Acid 200 mg tabIndications:Pe ripheral sensory neuropathy Take 200 mg by mouth two times daily. 180 Tablet 2 3 Active azelastine 137 mcg/actuation (ASTELIN) nasal sprayIndications: Post-nasal drainage Inhale 2 Sprays into affected nostril(s) two times daily. 30 mL 6 4 Active polyethylene glycoL (MIRALAX) 17 gram/scoop powderIndications :Chronic constipation MIX 1 SCOOP (17GM) IN LIQUID THEN TAKE BY MOUTH ONCE DAILY. 1530 g 2 4 Active LORazepam (ATIVAN) 1 mg tabletIndications :Insomnia, unspecified type TAKE 1 TABLET (1 MG) BY MOUTH TWO TIMES DAILY. 180 Tablet 1 4 Active levothyroxine (SYNTHROID) 88 mcg tabletIndications :Acquired hypothyroidism,T3 low in serum Take 1 Tablet (88 mcg) by mouth before breakfast. 90 Tablet 3 4 Active tamsulosin 0.4 mg capsuleIndication s:Incomplete bladder emptying Take 1 Capsule (0.4 mg) by mouth once daily after a meal. 90 Capsule 3 4 Active omeprazole (PRILOSEC) 40 mg Delayed-Release capsuleIndication s:Gastroesophagea l reflux disease without esophagitis TAKE 1 CAPSULE BY MOUTH EVERY DAY BEFORE A MEAL. DO NOT CRUSH OR CHEW 90 Capsule 2 4 Active lisinopriL (PRINIVIL; ZESTRIL) 40 mg tabletIndications :Essential hypertension Take 1 Tablet (40 mg) by mouth once daily. 90 Tablet 3 4 Active amLODIPine (NORVASC) 2.5 mg tabletIndications :Essential hypertension Take 1 Tablet (2.5 mg) by mouth once daily. 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 from Last 3 Months Immunizations Immunization Administration Dates Next Due AMB Influenza, IIV3 (Age >=3 years) Preserve Free (Flu Clinic Only) 02/15/2012,02/24/2011 AMB Influenza, IIV3 (Age >=3 years)(Flu Clinic Only) 03/29/2008 AMB Influenza, IIV4 PF (=>6 mos Flulaval,Fluzone Fluarix)(Flu Clinic Only) 03/05/2015 COVID-19 vaccine (Moderna 100mcg/0.5mL) PF, MDV 06/18/2020,05/21/2020 COVID-19 vaccine (Moderna Guerrero lei 50mcg/0.25mL) PF, MDV 03/30/2021 DT (Age < 7 years) 10/26/2005 INFLUENZA, IIV3 PF (AGE >= 6 MO) 01/19/2010 Influenza A (H1N1), Inactiva juliano (Age 6-35 Mos) 04/28/2009 Influenza, High-dose Inactivated 024,02/14/2020,02/08/2019,01/09,02/15/2018,02/11/2017,02/11/2017 ,02/04/2016,01/14/2014,01/29/2013 Influenza, High-dose Quadriv alent Inactivated 02/24/2023,02/25/2022,02/23/2021 Influenza, IIV3 (Age >=3 years) 01/20/20 10,01/19/2009,03/08/2007,02/24,02/24/2004 Influenza, IIV4 02/14/2020, 9,01/09/2019,02/15,02/09/2018,02/11/2017,02/04/2016 ,01/14/2014,01/28/2013,03/20/2012,01/2012,02/24/2011,01/19/2010, 9,03/29/2008,03/09/2008,03/08/2007,,02/24/2004 Influenza, Inactivated IIV3 (Age 65+ Years) Preserv Free 02/09/2018 Pneumococcal Conj 20-valent (Prevnar 20) 09/06/2023 Pneumococcal Poly,23-Valent (Pneumovax) 03/09/2008,10/26/2005 Pneumococcal conj 13-Valent (Prevnar 13) 05/22/2015 RSV, Recombinant ADJ Reconst ituted (Arexvy 120MCG/0.5mL) 04/20/2023 Td (Age >=7 Years) 04/16/2022,10/26/2005 Td, Preservative Free (age >= 7 Years) [...] Answer Date Recorded PHQ-2 TOTAL SCORE 1 04/25/2024 Social Connections Answer Date Recorded Do you often feel lonely or isolated from those around you? 0 08/31/2023 Financial Resource Strain Answer Date R ecorded Difficulty of Paying Living Expenses 3 08/31/2023 Difficulty of Paying Living Expenses Not on file 08/31/2023 Food Insecurity Answer Date Recorded Do you worry your food will run out before you are able to buy more? 1 08/31/2023 Transportation Needs Answer Date Record ed Does lack of transportation keep you from medica l appointments? 1 08/31/2023 Does lack of transportation keep you from work, meetings or getting things that you need? 1 08/31/2023 Housing Stability Answer Date Recorded What is your housing situation today? 1 08/31/2023 Utilities Answer Date Recorded Do you have trouble paying f or utilities (for example, heat, electricity, water, phone)? 1 08/31/2023 Comments No Sex and Gender Information Value Date Recorded Sex Assigned at Not on file Legal Sex Female 5:24 AM MEN'S GOLF COACH Gender Identity Not on file Sexual Orientation Not on file Obstetrics History Para Term AB IAB SAB Ectopic Multiple Livin g Live Births 2 2 2 Date Outcome GA Total Labor Labor/2nd/3rd Weight Sex Type Anes PTL Dara A1 A5 Name Clin Term Term Last Filed Vital Signs Vital Sign Reading Time Taken Comments Blood Pressure 157/67 04/25/2024 4:02 PM MEN'S GOLF COACH Pulse 73 04/25/2024 4:02 PM MEN'S GOLF COACH Temperature 36.7 C (98 F) 12/20/2023 8:56 AM CDT Respiratory Rate 16 09/27/2022 9:09 AM CDT Oxygen Saturation 96% 04/25/2024 4:02 PM MEN'S GOLF COACH Inhaled Oxygen Concentration - - Weight 62.1 kg (136 lb 12.8 oz) 04/25/2024 4:02 PM MEN'S GOLF COACH Height 165.1 cm (5' 5) 06/02/2022 9:31 AM MEN'S GOLF COACH Body Mass Index 22.76 06/02/2022 9:31 AM MEN'S GOLF COACH Plan of Treatment Upcoming Encounters Date Type Department Care Team (Late st Contact Info) Description 08/08/2024 9:00 AM CDT Office Visit [facility] [address] [place] [address] Daisy Carpenter DO [address] [place] [address] Health Maintenance Due Date Last Done Comments BMI (ht and wt on same day) for age 18+ 06/02/2023 06/02/2022, 04/09/2021, 04/08/2021, Additional history exists Medicare Wellness for age 65+ 04/18/2024, 04/16/2022, 04/08/2021, Additional history exists COVID-19 vaccine series (9 - Moderna risk season) 2024 02/23/2024, 08/18/2023, 02/21/2023, Additional history exists Depression screening for age 12+ 04/25/2025 04/25/2024, 04/18/2023, 04/16/2022, Additional history exists Tetanus booster 04/16/2032 04/16/2022, 04/09, 05/04/2012, Additional history exists Tdap Completed 05/04/2012, 09/06/2007 DEXA/DXA scan for age 65+ Completed 05/27/2016, 04/2013 Zoster (shingles) series for age 50+ Completed 02/28/2019, 12/27/2018, 02/28/2009 RSV vaccine for adults or Completed 04/20/2023 Pneumococcal series for age 50+ Completed 09/06/2023, 05/22/2015, 03/09/2008, Additional history exists Influenza Vaccine Completed 02/23/2024, , 02/14/2020, Additional history exists Procedures Procedure Name Priority Date/Time Associated Diagnosis Comments TSH Routine 07/19/2024 10:59 AM CDT Acquired hypothyroidism T3,TOTAL Routine 07/19/2024 10:59 AM CDT Acquired hypothyroidism T3 low in serum T4,FREE Routine 07/19/2024 10:59 AM CDT Acquired hypothyroidism XR DXA BONE DENSITY 2 SITES AXIAL Routine 05/27/2016 10:47 AM MEN'S GOLF COACH Osteoporosis from Last 3 Months or Most Recently Relevant to Health Maintenance Results * TSH (07/19/2024 10:59 AM CDT) TSH 0.74 0.40 - 4.50 mIU/L [facility] Blood BLOOD SPECIMEN / Unknown 07/19/2024 10:59 AM CDT 07/19/2024 10:59 AM CDT Daisy Del Rosariot DO CHEMISTRY Final Resul t Performing Organization Address City/[facility] [address]/ZIP Co de Phone Number [facility] [address] [address], [place] [phone] [facility] [address] [place] [phone] * T3,TOTAL (07/19/2024 10:59 AM CDT) T3, TOTAL 88 76 - 181 ng/dL [facility] Blood BLOOD SPECIMEN / Unknown 07/19/2024 10:59 AM CDT 07/19/2024 10:59 AM CDT Daisy Pereyra Detert DO CHEMISTRY Final Resul t [facility] [address] [place] [id number], [place] [phone] [facility] [address] [place] [address] * T4,FREE (07/19/2024 10:59 AM CDT) T4, FREE 1.3 0.8 - 1.8 ng/dL [facility] Blood BLOOD SPECIMEN / Unknown 07/19/2024 10:59 AM CDT 07/19/2024 10:59 AM CDT us Daisy Pereyra Pauline DO CHEMISTRY Final Resul t [facility] [address] [place] [address], [facility] [address] [place] [address] * (ABNORMAL) XR DXA BONE DENSITY 2 SITES AXIAL (05/27/2016 10:47 AM MEN'S GOLF COACH) Anatomical Region Laterality Modality Spine, HIPS, HIPL, HIPR Other Narrative 05/27/2016 7:18 PM MEN'S GOLF COACH Please see scanned document for results of this study. us Kendall Haque MD DEXA Final Result from Last 3 Months or Most Recently Relevant to Health Maintenance Insurance [employer] [place] BL[place] MR PB ONLY MEDICARE PPS [employer] [place] BLUE HB ONLY Advance Directives Documents on File Type Date Recorded Patient Microfilming Document Preparer Expl anation POLST 05/08/2018 1:18 PM SABRINA MUÑOZ, 04/28/18 Healthcare Directive 09/03/2009 HEALTH CARE DIRECTIVE, [facility], 08/14/09 Care Teams Construction Person Relationship Specialty Start Date End Date Daisy Carpenter DO [facility] [address] PCP - General Family Practice 11/28/[address] [address] 09/06/22
[2024-08-05 09:03] VITALS: BP 173/79; PULSE 68; RESP 18; TEMP 36.6; O2SAT 98; BMI 20.5
--- NOTE | 2024-08-05 09:11 | CRLHL7_ITS ---
For Patients: As a result of the Century Cures Act, medical imaging exams and procedure reports are released immediately into your electronic medical record. You may view this report before your referring provider. If you have questions, please contact your health care provider. INDICATION: Leg pain and swelling. TECHNIQUE: Ultrasound venous duplex lower left extremity. Compression venous exam was performed using tanner-scale, color Doppler, and spectral Doppler analysis. COMPARISON: None. FINDINGS: Deep veins: Sonographic imaging demonstrates the left common femoral, deep femoral, superficial femoral, popliteal, posterior tibial and the contralateral right common femoral veins to be fully compressible with normal color Doppler blood flow. Superficial veins: Greater saphenous vein is fully compressible. No popliteal cyst. IMPRESSION: Normal left lower extremity venous ultrasound, no sign of deep venous thrombosis. Dictated by Demarco Espitia MD @ 08/05/2024 10:04:14 AM (Electronically Signed)
--- OUTSIDE RECORDS SUMMARY | 2024-08-05 09:29 | XMS_ITS | Continuity of Care Document ---
Author Organization [facility] Address [address] [place] [address] Phone Care Team Providers Care Steam Plant Records Clerk Name Role Phone Spenser PT PT, Tish Unavailable Unavailable Allergies, Adverse Reactions, Alerts Substance Reaction Status Criticality mirtazapine Did not help sleep Active No Info rmation ibuprofen Can't urinate Active No Informati on trazodone Can't sleep Active No Information hyoscyamine Can't urinate Active No Informati on cyclobenzaprine Dizzy & Itchy Active No Informat ion latex Blisters Active No Information Sulfa (Sulfonamide Antibiotics) Hives/Skin Rash Active No Information Medications Medication Instructions Dosage Effective Dates (start - stop) Status Comments lisinopril 40 mg Tab take 1 tablet (40MG ) by oral route every day 40 MG - Active levothyroxine 88 mcg Tab take 1 Tablet by Oral route every day 1 Tablet - Active lorazepam 1 mg Tab take 1 tablet (1MG) by oral route every day as needed 1 MG - Active omeprazole 20 mg Cap, Delayed Release take 1 capsule (20MG) by oral route every day before a meal 20 MG - Active simvastatin 20 mg Tab take 1 tablet (20M G) by ORAL route every day in the evening 20 MG - Active Vicodin 5 mg-500 mg Tab take 1 - 2 Tablet by ORAL route every 4 - 6 hours as needed for pain - Active gabapentin 100 mg Cap take 1 Capsule (100MG) by oral route 3 times every day 100 MG - Active multivitamin Tab take 1 tablet by ora l route every day with food - Active Vitamin D 2,000 unit Cap take 1 by Oral route every 1 - Active magnesium 250 mg Tab take 1 Tablet by Or al route every bedtime 1 Tablet - Active Senokot 8.6 mg Tab take 1 Tablet by ora l route 2 times every day as needed for constipation 1 Tablet - Active Miralax 17 gram/dose Oral Powder take (17G) by oral route every day mixed with 8 oz. water, juice, soda, coffee or tea - Active Procedures Procedure Date Therap 1/> Area/15 Min; [facility]/ 12 Therap Activities 1-on-1 Ea 12 Therap 1/> Areas/15 Min; Aquat 12 Therap 1/> Areas/15 Min; Aquat 12 Therap 1/> Areas/15 Min; Aquat 12 Phys Therap Eval Therap 1/> Area/15 Min; Baltn/ 12 Therap Activities 1-on-1 Ea 12 Patient encounter was documented using a CCHIT cer Current Med Dosages Verified & Documente d Medicare Falls Asses No Fall Positive Pain Assessment W F/U Plan QA DONE Hypogastric Plex Block Hypogastric Plex Block Fluoroscopic Guidance For Inj - Nonspine Moderate sedation services Fluoroscopy Radiation Exp Inj Anesthetic Agent Plexus Inj Anesthetic Agent Plexus Offic/outpt E&m New Mod-hi 45 2 Patient Non Tobacco User Patient Screened for [place]co Patient encounter was doc Current Med Dosages Verif QA DONE Advance Directives Directive Yes / No Effective Date File Name No Information Encounters Encounter Description Practice Location Reason(s) For Visit Diagnoses Date Provider Providers Copied on Encounter DB Syed, [address], [place], [place], [address], [place] tel:[phone] [facility] 7390 No Information Dueñas PT Tish. [address], [place], [place], [address], [place]. tel:[phone] Referring Provider: Kendall Haque MD, [address] [facility], [place], [address]. tel:[phone] [facility], [address], [place], [place], [address], [place] tel:[phone] [facility] 7[facility] No Information Dueñas PT Tish. [address], [place], [place], [address], [place]. tel:[phone] Referring Provider: Kendall Haque MD, [address] [facility], [place], [address]. tel:[phone] [facility], [address], [place], [place], [address], [place] tel:[phone] [facility] No Information Paige Michael. [address], [place], [place], [address], [place]. tel:[phone] Referring Provider: Kendall Haque MD, [address] [facility], [place], [address]. tel:[phone] [facility], [address], [place], [place], [address], [place] tel:[phone] [facility] No Information Paige Michael. [address], [place], [place], [address], [place]. tel:[phone] Referring Provider: Kendall Haque MD, [address] [facility], [place], [address]. tel:[phone] [facility], [facility], [address], [place], [place], [address], [place] tel:[phone] [facility] No Information Abdulaziz Kera. [address], [place], [place], [address], [place]. tel:[phone] Referring Provider: Kendall Haque MD, [address] [place], [address]. tel:[phone] [facility], [facility], [address], [place], [place], [address], [place] tel:[phone] [facility] 7390 No Information Dueñas HANDY Winston. [address], [place], [place], [address], [place]. tel:[phone] Referring Provider: Kendall Haque MD, [address] [facility], [place], [address]. tel:[phone] [facility], [address], [place], [address], [place] tel:[phone] [facility] No Information Jeremiah Park. [address], [place], [place], [address], [place]. tel:[phone] Referring Provider: Xavier Robertson, [address], [place], [address] . tel:[phone] [facility], [address], [place], [place], [address], [place] tel:[phone] [facility] No Information Jeremiah Park. [address], [place], [place], [address], [place]. tel:[phone] Referring Provider: Kendall Haque MD, [address] [facility], [place], [address]. tel:[phone] Offic/outpt E&m New Mod-hi 45 [facility], [facility], [address], [place], [place], [address], [place] tel:[phone] [facility] No Information August Espinosa. [address] [facility], [place], [address], [place]. tel:[phone] Referring Provider: Kendall Haque MD, [address] [place], [place], [address]. tel:[phone] Family History Family Member Type Diagnosis Age At Onset No Information Payers Payer name Insurance type Covered alliance party ID Wen cedeno(s) Blue Plus BL [id number] Social History Type Description Quantity Date Captured Comments Alcohol Use Details Caffeine Use Details Unknown Tobacco Use Status No Information Smoking Status Former Smoker Non-Smoking Tobacco Use Details : No Details Available : No Details Available Sex Female Chief Complaint And Reason For Visit No [...]
--- OUTSIDE RECORDS SUMMARY | 2024-08-05 09:29 | XMS_ITS | Clinical Summary ---
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 TECHNICIAN Gender Identity Not on file Sexual Orientation Not on file Obstetrics History Para Term AB IAB SAB Ectopic Multiple Livin g Live Births 2 2 2 Date Outcome GA Total Labor Labor/2nd/3rd Weight Sex Type Anes PTL Dara A1 A5 Name Clin Term Term Last Filed Vital Signs Vital Sign Reading Time Taken Comments Blood Pressure 157/67 04/25/2024 4:02 PM BIOMETRIC FINGERPRINTING TECHNICIAN Pulse 73 04/25/2024 4:02 PM BIOMETRIC FINGERPRINTING TECHNICIAN Temperature 36.7 C (98 F) 12/20/2023 8:56 AM CDT Respiratory Rate 16 09/27/2022 9:09 AM CDT Oxygen Saturation 96% 04/25/2024 4:02 PM BIOMETRIC FINGERPRINTING TECHNICIAN Inhaled Oxygen Concentration - - Weight 62.1 kg (136 lb 12.8 oz) 04/25/2024 4:02 PM BIOMETRIC FINGERPRINTING TECHNICIAN Height 165.1 cm (5' 5) 06/02/2022 9:31 AM BIOMETRIC FINGERPRINTING TECHNICIAN Body Mass Index 22.76 06/02/2022 9:31 AM BIOMETRIC FINGERPRINTING TECHNICIAN Plan of Treatment Upcoming Encounters Date Type Department Care Team (Late st Contact Info) Description 08/08/2024 9:00 AM CDT Office Visit [facility] [address] [place] [address] Daisy Carpenter DO [address] [place] [address] Health Maintenance Due Date Last Done Comments [...] 2 SITES AXIAL Routine 05/27/2016 10:47 AM BIOMETRIC FINGERPRINTING TECHNICIAN Osteoporosis from Last 3 Months or Most Recently Relevant to Health Maintenance Results * TSH (07/19/2024 10:59 AM CDT) TSH 0.74 0.40 - 4.50 mIU/L [facility] Blood BLOOD SPECIMEN / Unknown 07/19/2024 10:59 AM CDT 07/19/2024 10:59 AM CDT Daisy Del Rosariot DO CHEMISTRY Final Resul t Performing Organization Address City/[facility]/ZIP Co de Phone Number [facility] [address] [address], [place] [phone] [facility] [address] [place] [phone] * T3,TOTAL (07/19/2024 10:59 AM CDT) T3, TOTAL 88 76 - 181 ng/dL [facility] Blood BLOOD SPECIMEN / Unknown 07/19/2024 10:59 AM CDT 07/19/2024 10:59 AM CDT Daisy Pereyra Detert DO CHEMISTRY Final Resul t [facility] [address] [place] [address], [place] [phone] [facility] [address] [place] [address] * T4,FREE (07/19/2024 10:59 AM CDT) T4, FREE 1.3 0.8 - 1.8 ng/dL [facility] Blood BLOOD SPECIMEN / Unknown 07/19/2024 10:59 AM CDT 07/19/2024 10:59 AM CDT us Daisy Pereyra Pauline DO CHEMISTRY Final Resul t [facility] [address] [place] [address], [facility] [address] [place] [address] * (ABNORMAL) XR DXA BONE DENSITY 2 SITES AXIAL (05/27/2016 10:47 AM BIOMETRIC FINGERPRINTING TECHNICIAN) Anatomical Region Laterality Modality Spine, HIPS, HIPL, HIPR Other Narrative 05/27/2016 7:18 PM BIOMETRIC FINGERPRINTING TECHNICIAN Please see scanned document for results of this study. 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
--- OUTSIDE RECORDS SUMMARY | 2024-08-05 09:29 | XMS_ITS | Continuity of Care Document ---
Author Organization [facility] Address [address] [address] [place] [address] Phone Care Team Providers Care Compression Molding Machine Operator Name Role Phone Leandra RAMIREZ, Cande Unavailable [...] Diagnoses Date Provider Providers Copied on Encounter [facility], [address] [address], [place], [id number], [place] tel:[phone] [facility] No Information 5 Leandra Castellon . [address] [facility], [address], [place], [place], [address] , [place]. [phone] Referring Provider: Listed Not. [facility], [address] [address], [place], [id number], [place] tel:[phone] [facility] Personal History Colon PolypsColon Cancer ScreeningBenign Neoplasm ColonDiverticulos is Of ColonColon Cancer ScreeningDivertic ulosis Of ColonPersonal History Colon PolypsBenign Neoplasm Colon 2 Keyur Lowe. [address] [facility], [facility] [address], [facility] [place], [address] , [place]. [phone] Referring Provider: Kendall Haque MD L, [address] [place] [address], [place], [address]. tel:[phone] Family History Family Member Type Diagnosis Age [...]
--- OUTSIDE RECORDS SUMMARY | 2024-08-05 09:29 | XMS_ITS | Continuity of Care Document ---
Author Organization [facility] Address [address] [place] [address] Phone Care Team Providers Care Loan Approver Name Role Phone Mark Marie OD Unavailable Unavailable Advance Directives Directive Yes / No Effective Date File Name No Information Encounters Encounter Description Practice Location Reason(s) For Visit Diagnoses Date Provider Providers Copied on Encounter [facility], [address] [place], [place], [id number], tel:[phone] [place] [address] No Information Frank Flores. [address], [place], [address], [place]. tel:[phone] Referring Provider: Mark Sesay, [address], [place], [address]. tel:[phone] Family History Family Member Type Diagnosis Age [...]
--- NOTE | 2024-08-05 09:51 | ED_ITS ---
HPI - General Adult General Chief complaint: Extremity Pain/Injury, Lower Stated complaint: poss DVT History of Present Illness HPI narrative: Patient is a 89-year-old woman who comes in via ambulance after noticing minor swelling in her left lower extremity today below the knee. Patient has no history of DVT but is concerned that she might have a DVT. She has had no chest pain no shortness of breath no discomfort no nausea no vomiting no fevers no chills no skin breakdown no erythema. Patient is otherwise in her usual state of health. Related Data Home Medications ?Medication ?Instructions ?Recorded ?Confirmed amlodipine 2.5 mg tablet 2.5 mg PO DAILY 11/10/21 08/05/24 gabapentin 300 mg capsule 300 mg PO .am 11/10/21 08/05/24 ketotifen fumarate 0.025 % (0.035 1 drp ophthalmic (eye) 11/10/21 02/19/23 %) eye drops (Zaditor) levothyroxine 50 mcg tablet 75 mcg PO DAILY 11/10/21 08/05/24 lisinopril 40 mg tablet 40 mg PO DAILY 11/10/21 08/05/24 tamsulosin 0.4 mg capsule 0.4 mg PO Q24H 11/10/21 08/05/24 carboxymethylcellulose sodium 1 % 1 drp ophthalmic (eye) TID-QID 02/19/23 08/05/24 eye gel in a dropperette (Refresh Celluvisc) lorazepam 1 mg tablet 1 mg PO BID 02/19/23 08/05/24 omeprazole 40 mg capsule,delayed 40 mg PO QDAY 02/19/23 08/05/24 release alpha lipoic acid 300 mg-biotin 1 cap PO DAILY 01/18/24 08/05/24 333 mcg capsule aspirin 81 mg chewable tablet 81 mg PO DAILY 01/18/24 08/05/24 (Aspirin Childrens) Previous Rx's ?Medication ?Instructions ?Recorded fosfomycin tromethamine 3 gram 3 g PO ONCE #1 ea 02/19/23 oral packet Allergies Allergy/AdvReac Type Severity Reaction Status Date / Time atorvastatin Allergy Intermediate leg cramps Verified 08/05/24 09:08 atropine Allergy Unknown Verified 08/05/24 09:08 ciprofloxacin Allergy Unknown Verified 08/05/24 09:08 cyclobenzaprine Allergy Unknown Verified 08/05/24 09:08 doxycycline Allergy Unknown Verified 08/05/24 09:08 hydrochlorothiazide Allergy Unknown Verified 08/05/24 09:08 ibuprofen (From Motrin) Allergy Unknown Verified 08/05/24 09:08 labetalol Allergy Unknown Verified 08/05/24 09:08 phenol Allergy Unknown Verified 08/05/24 09:08 Sulfa (Sulfonamide Allergy Unknown Verified 08/05/24 09:08 Antibiotics) trazodone Allergy Unknown Verified 08/05/24 09:08 glycerine Allergy Unknown Uncoded 02/19/23 12:15 high cosamin Allergy Unknown Uncoded 02/19/23 12:15 Review of Systems Status of ROS: Reports: 10 or more systems reviewed and unremarkable except as noted in History and below PFSH PFSH Medical History POLST (Physician Orders for Life-Sustaining Treatment) ?Z78.9 - Other specified health status (ICD-10) 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 - Arthralgia of temporomandibular joint, unspecified side (ICD-10) Osteopenia ?M85.80 - Other specified disorders of bone density and structure, unspecified site (ICD-10) Lumbago ?M54.50 - Low back pain, unspecified (ICD-10) Diverticulosis ?K57.90 - Diverticulosis of intestine, part unspecified, without perforation or abscess without bleeding (ICD-10) 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) History of basal cell cancer ?Z85.828 - Personal history of other malignant neoplasm of skin (ICD-10) Hernia ?K46.9 - Unspecified abdominal hernia without obstruction or gangrene (ICD- 10) Rectocele ?N81.6 - Rectocele (ICD-10) UTI (urinary tract infection) ?N39.0 - Urinary tract infection, site not specified (ICD-10) Hypertension ?I10 - Essential (primary) hypertension (ICD-10) Surgical History History of sacrocolpopexy ?Z98.890 - Other specified postprocedural states (ICD-10) S/P MULU (total abdominal hysterectomy) ?Z90.710 - Acquired absence of both cervix and uterus (ICD-10) History of hemorrhoidectomy ?Z98.890 - Other specified postprocedural states (ICD-10) History of bladder suspension procedure ?Z98.890 - Other specified postprocedural states (ICD-10) ?Z87.448 - Personal history of other diseases of urinary system (ICD-10) History of appendectomy ?Z90.49 - Acquired absence of other specified parts of digestive tract (ICD- 10) H/O: hysterectomy ?Z90.710 - Acquired absence of both cervix and uterus (ICD-10) Social History Smoking Status: Former smoker Do you use any of these nicotine containing products: None Second hand tobacco smoke exposure: No How often do you have a drink containing alcohol: never How often do you have six or more drinks on one occasion: Never AUDIT-C Alcohol total score: 0 Non-prescribed substance use: denies use service: No Exam Narrative: Exam Narrative: EXAM GENERAL: Patient appears comfortable and well. EYES: No scleral icterus. ENT: Tympanic membranes and oropharynx normal. THYROID: no thyroid nodules or thyromegaly. LYMPH: No supraclavicular or cervical lymphadenopathy. SKIN: Visible skin seen during exam normal or with benign process only. EXT: No dependent lower extremity pedal edema. HEART: Regular rate and rhythm with no murmurs, rubs, or gallops. LUNGS: Clear to auscultation bilaterally with no crackles or wheezes. ABD: Soft, non tender, non distended. PSYCH: Good eye contact, speech is not pressured. Const: Vital Signs, click to edit/add: Vital Signs - 24 hr 08/05/24 09:03 Temperature 97.9 F Pulse Rate [Pulse Oximeter] 68 Respiratory Rate 18 Blood Pressure [Ri ght Upper Arm] 173/79 H Pulse Oximetry 98 Oxygen Delivery Me thod Room Air Course Course ED Course: Patient seen and examined. Ultrasound negative of the left lower extremity for DVT. Reassurance offered. Up with treat symptomatically would like elevation rest and advancement of activity as tolerated. No other concerns noted. Vital Signs Vital signs: Initial Vital Signs Temperature 97.9 F 08/05/24 09:03 Temperature Source Temporal Artery Scan 08/05/24 09:03 Pulse Rate 68 08/05/24 09:03 Respiratory Rate 18 08/05/24 09:03 Blood Pressure 173/79 H 08/05/24 09:03 Blood Pressure Mean 110 H 08/05/24 09:03 Blood Pressure Position Sitting 08/05/24 09:03 Pulse Oximetry 98 08/05/24 09:03 Oxygen Delivery Method Room Air 08/05/24 09:03 Vital Signs Temperature 97.9 F 08/05/24 09:03 Pulse Rate 68 08/05/24 09:03 Respiratory Rate 18 08/05/24 09:03 Blood Pressure 173/79 H 08/05/24 09:03 Pulse Oximetry 98 08/05/24 09:03 Oxygen Delivery Method Room Air 08/05/24 09:03 Temperature 97.9 F 08/05/24 09:03 Pulse Rate 68 08/05/24 09:03 Respiratory Rate 18 08/05/24 09:03 Blood Pressure 173/79 H 08/05/24 09:03 Pulse Oximetry 98 08/05/24 09:03 Oxygen Delivery Method Room Air 08/05/24 09:03 Discharge Plan Discharge Clinical Impression: Swelling Patient Disposition: Home, Self-Care Condition: Stable Additional Instructions: No change to current treatment. Leg elevation while at rest. Activity Level: No Restrictions Discharge Diet: Regular Prescriptions: No Action carboxymethylcellulose sodium [Refresh Celluvisc] 1 % dropperette,gel 1 drp ophthalmic (eye) TID-QID fosfomycin tromethamine 3 gram packet 3 g PO ONCE Qty: 1 0RF ketotifen fumarate [Zaditor] 0.025 % (0.035 %) drops 1 drp OPHTHALMIC (EYE) Patient Comments: USE 1 DROP IN AFFECTED EYE/EYES NEEDED TWICE DAILY. amlodipine 2.5 mg tablet 2.5 mg PO DAILY Patient Comments: TAKE ONE TABLET BY MOUTH ONCE DAILY tamsulosin 0.4 mg capsule 0.4 mg PO Q24H Patient Comments: TAKE 1 CAPSULE (0.4 MG) BY MOUTH ONCE DAILY AFTER A MEAL. levothyroxine 50 mcg tablet 75 mcg PO DAILY Patient Comments: TAKE ONE TABLET BY MOUTH BEFORE BREAKFAST gabapentin 300 mg capsule 300 mg PO .am Patient Comments: TAKE ONE CAPSULE BY MOUTH EVERY MORNING THEN 2 CAPSULES AT AT NOON AND 3 CAPSULES AT BEDTIME lisinopril 40 mg tablet 40 mg PO DAILY Patient Comments: TAKE 1 TABLET (40 MG) BY MOUTH ONCE DAILY. lorazepam 1 mg tablet 1 mg PO BID Patient Comments: TAKE 1 TABLET (1 MG) BY MOUTH 2 TIMES DAILY. omeprazole 40 mg capsule,delayed release(DR/EC) 40 mg PO QDAY Patient Comments: TAKE 1 CAPSULE BY MOUTH EVERY DAY BEFORE A MEAL. DO NOT CRUSH OR CHEW aspirin [Aspirin Childrens] 81 mg tablet,chewable 81 mg PO DAILY alpha lipoic acid-biotin 300 mg- 333 mcg capsule 1 cap PO DAILY Follow Up/Referrals: Daisy Carpenter DO [Primary Care Provider] - Stand Alone Forms: [facility] Instructions
== END 2024-08-05 10:43 | disposition home or self-care (01) ==
PROVIDERS: Emergency Provider Internal Medicine; PCP Family Medicine
DX: R60.9 Edema, unspecified (principal)
CPT/HCPCS: 93971; 99283; 99284

== ENCOUNTER 2025-02-18 11:38 | Outpatient (CLI) | payer MEDICARE, BC, SELFPAY | END 2025-02-18 11:39 | disposition home or self-care (01) | LOC: NFLDUCREF 11:38 | PROVIDERS: PCP Family Medicine | DX: R30.0 Dysuria (principal) | CPT/HCPCS: 87086 ==